=== PATIENT | male | born 1980 | race Caucasian/White ===

== ENCOUNTER 2017-08-24 09:14 | Day surgery (SDC) | payer MEDICARE, OTHER ==
[~2017-08-24 09:14] MED LIST: ACET120S PO; ACET325 PO; ACET650SUP PR; ALBU3IS INH; ALBU90OI INH; ASCO250CH PO; AZIT250 PO; Amitiza24 MCG; Amitiza24 MCG PO; BACL10; BACL10 PO; BACL20; BACL20 PO; BACLOFEN PUMP; BISA10S PO; BISA10S PR; CAL; CEFD300 PO; CEFOXITIN IV; CEFP200; CEFU500 PO; CEPH500 PO; CIPR500 PO; CITA20; CLIN300 PO; CLON.1; CVS DISPOSABLE399 ML PR; CYCL10 PO; Ceftriaxon1 GM/50 M1 IV; Cephalexin250 MG PO; Cipro500 MG PO; Cleocin HCl300 MG PO; Colace250 MG PO; Cranberry 4001 EACH PO; DIAZ10; DIAZ10 PO; DIAZ5 PO; DILAUDID0.5 MG/0.5 IJ; DIPH50 PO; DOC250 PO; DOCCAL240; DOCU100; DOCU100 PO; DOXY100 PO; DULO30 PO; DULO60 PO; Dicyclomine HCl20 MG PO; ENOX40I SC; ENOX40I SUBQ; ERGO50000 PO; ESZO2 PO; ESZOPICLONE2 MG PO; FERR325 PO; FIBE4P; FLORINEF PO; FLUD.1; FLUD.1 PO; FLUDROCORTISONE PO; FLUOROCORTISONE; FURO20 PO; FURO40 PO; Fludrocortison0.1 MG PO; GABA300; GABA600 PO; GABA800 PO; GUAI200 PO; GUAI600T33 PO; HIPREX1 GM PO; HYDACE5; HYDACE5 PO; HYDACE7.5 PO; HYDCOR10 PO; HYDMOR2; HYDMOR2 IV; HYDMOR2 PO; HYDR-86 PO; HYDR1TAB94; HYDROMORPHONE; Hair, Skin & N1 EACH PO; IBUP200 PO; IBUP600 PO; KEFLEX PO; KETO10 PO; Keflex500 MG PO; Kristalose20 GM PO; LACT10SY PO; LAVAP17G PO; LAVAP4L PO; LEVFLO500 PO; MAGCIT300 PO; MARIJUANNA INH; MED MARIJUANA; MEDICAL MARIJUANA; METO10 PO; MULTI VITAMIN1 EACH PO; MUPI2TO TOP; Milk Of Ma400 MG/5 M PO; Miralax17 GM PO; Monodox100 MG PO; NAPR500 PO; NEOPOLBACA TOP; NEURONTIN PO; NITR100 PO; NITR100CA PO; NITR50; NITR50 PO; NUTRISOURCE FIBE4 GM PO; OMEP20ER PO; ONDA4 PO; ONDA8 PO; OPIBELS PR; OXYACE5T PO; OXYACE7.5T PO; OXYB5 PO; Omeprazole20 M1 PO; PARO10; PARO20; PARO20 PO; PHENA200 PO; POLY17UD PO; POTA10T PO; POTCHL10ER PO; PROACE100 PO; PROC10 PO; Percocet 5-3251 EACH PO; Prilosec Otc20 MG; Pyridium200 MG PO; RANI150; RANI150 PO; RIFA300 PO; RXCLIN PO; RXHYDMOR2 PO; RXONDA4ODT MM; RXOXYACE PO; RXPHEN200 PO; RXPROACE PO; SACC250C; SACC250C IV; SACC250C PO; SENN187; SENN187 PO; SENNP PO; SIME80CH PO; SIMV80 PO; SULTRIDS PO; Senna8.6 MG PO; TIZANIDINE HCL4 MG PO; TOLT2 PO; TRAZ100; TRAZ100 PO; TRAZ50; TRAZ50 PO; Therapeutic M1 EAC5 PO; Tizanidine HCl2 MG PO; VANCOMYCIN1.25 GM/21 IV; VANCOMYCIN1.5 GM/150 IV; VITAMIN D22000 UNIT; Vancocin HCL1000 MG IV; Vibramycin100 MG PO; WARF3 PO; XARELTO20 MG PO; baclofen
== END 2017-08-24 22:54 | disposition home or self-care (01) ==
LOC: WOUND 09:14
PROC: 0JBN0ZZ Excision of Right Lower Leg Subcutaneous Tissue and Fascia, Open Approach (ICD-10-PCS; principal; 2017-08-24)
DX: Z48.00 Encounter for change or removal of nonsurgical wound dressing (principal); L89.514 Pressure ulcer of right ankle, stage 4; M86.672 Other chronic osteomyelitis, left ankle and foot; G82.53 Quadriplegia, C5-C7 complete
CPT/HCPCS: 87081; G0463

== ENCOUNTER 2017-09-21 14:53 | Day surgery (SDC) | payer MEDICARE, OTHER | END 2017-09-21 22:50 | disposition home or self-care (01) | LOC: WOUND 14:53 | PROC: 0HBKXZZ Excision of Right Lower Leg Skin, External Approach (ICD-10-PCS; principal; 2017-09-21) | DX: Z48.00 Encounter for change or removal of nonsurgical wound dressing (principal); M86.672 Other chronic osteomyelitis, left ankle and foot; G82.53 Quadriplegia, C5-C7 complete; Z89.421 Acquired absence of other right toe(s) | CPT/HCPCS: 87070; 87205 ==

== ENCOUNTER 2017-09-28 09:17 | Day surgery (SDC) | payer MEDICARE, OTHER | END 2017-09-28 23:19 | disposition home or self-care (01) | LOC: WOUND 09:17 | PROC: 0KBS0ZZ Excision of Right Lower Leg Muscle, Open Approach (ICD-10-PCS; principal; 2017-09-28) | DX: Z48.00 Encounter for change or removal of nonsurgical wound dressing (principal); M86.672 Other chronic osteomyelitis, left ankle and foot; L89.514 Pressure ulcer of right ankle, stage 4; G82.53 Quadriplegia, C5-C7 complete; Z89.421 Acquired absence of other right toe(s) | CPT/HCPCS: G0463 ==

== ENCOUNTER 2017-10-05 08:50 | Day surgery (SDC) | payer MEDICARE, OTHER | END 2017-10-05 11:11 | disposition home or self-care (01) | LOC: WOUND 08:50 | PROC: 0HBKXZZ Excision of Right Lower Leg Skin, External Approach (ICD-10-PCS; principal; 2017-10-05) | PROC: 0QBG0ZZ Excision of Right Tibia, Open Approach (ICD-10-PCS; principal; 2017-10-05) | DX: M86.672 Other chronic osteomyelitis, left ankle and foot (principal); L89.514 Pressure ulcer of right ankle, stage 4; G82.53 Quadriplegia, C5-C7 complete; Z89.421 Acquired absence of other right toe(s) | CPT/HCPCS: G0463 ==

== ENCOUNTER 2017-10-24 10:43 | Day surgery (SDC) | payer MEDICARE, OTHER | END 2017-10-24 23:25 | disposition home or self-care (01) | LOC: WOUND 10:43 | DX: Z48.00 Encounter for change or removal of nonsurgical wound dressing (principal); M86.672 Other chronic osteomyelitis, left ankle and foot; L89.514 Pressure ulcer of right ankle, stage 4; G82.53 Quadriplegia, C5-C7 complete | CPT/HCPCS: G0463 ==

== ENCOUNTER → 2017-11-02 | Outpatient (CLI) | payer MEDICARE, OTHER ==
[~2017-11-02] MED LIST changes: +Fleet Enema132 ML PR; +GABA400 PO; +Invanz1 GM IV; +MEROPENEM-1 GM/50 ML IV; +MIRALAX17 GM PO; +OXYB5ER PO; +Omeprazole20 M1; +Senna-Docusate1 EACH PO; +TYLENOL PO
[2017-11-02 15:25] LABS: Source, Urine Clean Catch
[2017-11-02 17:47] LABS: Appearance, Urine Hazy (Clear); Bilirubin, Urine Neg (Neg); Blood, Urine 5+ (Neg); Color, Urine Red (P-Yellow); Glucose Qualitative, Urine Neg (Neg); Ketones, Urine Neg (Neg); Leukocyte Esterase, Urine 1+ (Neg); Nitrite, Urine Neg (Neg); Protein, Urine 3+ (Neg); Urobilinogen, Urine NORM (Normal)
[2017-11-02 18:16] LABS: Bacteria Many /hpf
[2017-11-02 18:17] LABS: Red Blood Cells, Urine 50-100 /hpf (0-2); Squamous Epithelial Cells Not Seen /hpf (Few)
== END ==
LOC: LAB SRC 11:27
PROVIDERS: Internal Medicine
DX: N39.0 Urinary tract infection, site not specified (principal)
CPT/HCPCS: 81001; 87086

== ENCOUNTER 2017-11-07 10:40 | Emergency (ER) | payer MEDICARE, OTHER ==
[~2017-11-07] VITALS: Ht 185.4 cm; Wt 90.7 kg
[~2017-11-07 10:40] MED LIST changes: -Fleet Enema132 ML PR; -GABA400 PO; -Invanz1 GM IV; -MEROPENEM-1 GM/50 ML IV; -MIRALAX17 GM PO; -OXYB5ER PO; -Omeprazole20 M1; -Senna-Docusate1 EACH PO; -TYLENOL PO
[2017-11-07 11:37] LABS: Source, Urine Catheter
[2017-11-07 11:49] LABS: Bilirubin, Urine Neg (Neg); Blood, Urine 3+ (Neg); Glucose Qualitative, Urine Neg (Neg); Ketones, Urine Neg (Neg); Leukocyte Esterase, Urine 3+ (Neg); Nitrite, Urine Pos (Neg); Protein, Urine 2+ (Neg); Specific Gravity, Urine 1.015 (1.003-1.022); Urobilinogen, Urine NORM (Normal)
[2017-11-07 11:51] LABS: BASOPHILS ABSOLUTE AUTO 0.03 K/mm3 (0.00-0.23); BASOPHILS PERCENT AUTO 1 % (0-2); EOSINOPHILS PERCENT AUTO 6 % (0-6); Hematocrit 44.7 % (37.0-53.0); Hemoglobin 13.8 g/dL (13.5-17.5); IMMATURE GRAN ABSOLUTE AUTO 0.02 K/mm3 (0.00-0.10); IMMATURE GRAN PERCENT AUTO 0 % (0-1); LYMPHOCYTES ABSOLUTE AUTO 2.22 K/mm3 (0.84-5.20); LYMPHOCYTES PERCENT AUTO 36 % (21-46); MONOCYTES ABSOLUTE AUTO 0.43 K/mm3 (0.16-1.47); MONOCYTES PERCENT AUTO 7 % (4-13); Mean Corpuscular HGB 25.9 pg (26.0-34.0); Mean Corpuscular HGB Conc 30.9 g/dL (31.5-36.5); Mean Corpuscular Volume 84 fL (80-100); Mean Platelet Volume 11.5 fL (9.1-12.4); NEUTROPHILS ABSOLUTE AUTO 3.14 K/mm3 (1.96-9.15); NEUTROPHILS PERCENT AUTO 50 % (41-73); Platelet Count 225 K/mm3 (150-400); RDW Coefficient Variation 14.6 % (11.7-14.2); RDW Standard Deviation 44.9 fL (35.1-46.3); Red Blood Cell Count 5.33 M/mm3 (4.30-5.90); White Blood Cell Count 6.24 K/mm3 (4.00-11.30)
[2017-11-07 11:55] LABS: Appearance, Urine Turbid (Clear); Color, Urine Yellow (P-Yellow)
[2017-11-07 11:59] LABS: White Blood Cells, Urine 50-100 /hpf (0-5)
[2017-11-07 12:00] LABS: Squamous Epithelial Cells Rare /hpf (Few)
[2017-11-07 12:01] LABS: Amorphous Mod (0-Heavy); Bacteria Many /hpf
[2017-11-07 12:12] LABS: Alanine Aminotransfer (ALT/SGP 31 U/L (12-78); Albumin, Blood 3.5 g/dL (3.4-5.0); Albumin/Globulin Ratio 0.7 (0.8-1.8); Alk Phos 68 U/L (50-136); Anion Gap 4 mmol/L (6-16); Aspartate Aminotrans (AST/SGOT 17 U/L (12-37); Bilirubin, Total 0.3 mg/dL (0.1-1.0); Blood Urea Nitrogen 15 mg/dL (8-24); Bun/Creatinine Ratio 29.4 (12.0-20.0); CO2, Blood 32 mmol/L (21-32); Calcium, Blood 9.3 mg/dL (8.5-10.1); Chloride, Blood 102 mmol/L (98-108); Creatinine, Blood 0.51 mg/dL (0.60-1.20); Globulin, Blood 4.7 g/dL (2.2-4.0); Glomerular Filtration Rate >60 (60-); Glucose, Blood 92 mg/dL (70-99); Potassium, Blood 4.2 mmol/L (3.5-5.5); Sodium, Blood 138 mmol/L (136-145); Total Protein, Blood 8.2 g/dL (6.4-8.2)
== END 2017-11-07 17:59 | disposition home or self-care (01) ==
LOC: ER 10:40
PROVIDERS: Emergency Medicine
DX: N39.0 Urinary tract infection, site not specified (principal); J45.909 Unspecified asthma, uncomplicated; Z88.0 Allergy status to penicillin; Z88.1 Allergy status to other antibiotic agents; Z88.2 Allergy status to sulfonamides; Z91.040 Latex allergy status; Z88.8 Allergy status to other drugs, medicaments and biological substances; Z79.899 Other long term (current) drug therapy; Z86.718 Personal history of other venous thrombosis and embolism
CPT/HCPCS: 36415; 80053; 81001; 83690; 85025; 87077; 87086; 87186; 99283; J7030

== ENCOUNTER → 2017-11-18 | Outpatient (CLI) | payer MEDICARE, OTHER ==
[~2017-11-18] MED LIST changes: +Fleet Enema132 ML PR; +GABA400 PO; +Invanz1 GM IV; +MEROPENEM-1 GM/50 ML IV; +MIRALAX17 GM PO; +OXYB5ER PO; +Omeprazole20 M1; +Senna-Docusate1 EACH PO; +TYLENOL PO
== END ==
LOC: LAB 17:36
DX: L08.9 Local infection of the skin and subcutaneous tissue, unspecified (principal)
CPT/HCPCS: 87070; 87077; 87186; 87205

== ENCOUNTER 2017-11-21 09:25 | Day surgery (SDC) | payer MEDICARE, OTHER ==
[~2017-11-21 09:25] MED LIST changes: -Fleet Enema132 ML PR; -GABA400 PO; -Invanz1 GM IV; -MEROPENEM-1 GM/50 ML IV; -MIRALAX17 GM PO; -OXYB5ER PO; -Omeprazole20 M1; -Senna-Docusate1 EACH PO; -TYLENOL PO
== END 2017-11-21 11:47 | disposition home or self-care (01) ==
LOC: WOUND
PROC: 0HBKXZZ Excision of Right Lower Leg Skin, External Approach (ICD-10-PCS; principal; 2017-11-21)
PROC: 2W1QX6Z Compression of Right Lower Leg using Pressure Dressing (ICD-10-PCS; principal; 2017-11-21)
PROC: 0HBMXZZ Excision of Right Foot Skin, External Approach (ICD-10-PCS; principal; 2017-11-21)
DX: L89.514 Pressure ulcer of right ankle, stage 4 (principal); M86.672 Other chronic osteomyelitis, left ankle and foot; G82.53 Quadriplegia, C5-C7 complete; L89.899 Pressure ulcer of other site, unspecified stage
CPT/HCPCS: G0463; J0278

== ENCOUNTER 2017-12-05 00:04 | Day surgery (SDC) | payer MEDICARE, OTHER | END 2017-12-05 10:35 | disposition home or self-care (01) | LOC: WOUND 00:04 | PROC: 2W1QX6Z Compression of Right Lower Leg using Pressure Dressing (ICD-10-PCS; principal; 2017-12-05) | DX: L89.514 Pressure ulcer of right ankle, stage 4 (principal); M86.672 Other chronic osteomyelitis, left ankle and foot; G82.53 Quadriplegia, C5-C7 complete; Z89.421 Acquired absence of other right toe(s) | CPT/HCPCS: G0463 ==

== ENCOUNTER 2017-12-09 21:20 | Inpatient (IN) | payer MEDICARE, OTHER ==
[~2017-12-09] VITALS: Ht 185.4 cm; Wt 100.3 kg
[~2017-12-09 21:20] MED LIST changes: -Fleet Enema132 ML PR; -GABA400 PO; -Invanz1 GM IV; -MEROPENEM-1 GM/50 ML IV; -MIRALAX17 GM PO; -OXYB5ER PO; -Omeprazole20 M1; -Senna-Docusate1 EACH PO; -TYLENOL PO
[2017-12-09] MEDS ORDERED: DIAZ10 PO (21:51)
[2017-12-09] MEDS ORDERED: TYLENOL PO (21:51)
[2017-12-09] MEDS ORDERED: BISA10S PR (21:51)
[2017-12-09] MEDS ORDERED: Fludrocortison0.1 MG PO (21:51)
[2017-12-09] MEDS ORDERED: HIPREX1 GM PO (21:52)
[2017-12-09] MEDS ORDERED: Milk Of Ma400 MG/5 M PO (21:52)
[2017-12-09] MEDS ORDERED: GABA400 PO (21:52)
[2017-12-09] MEDS ORDERED: Omeprazole20 M1 (21:53)
[2017-12-09] MEDS ORDERED: MIRALAX17 GM PO (21:53)
[2017-12-09] MEDS ORDERED: Senna-Docusate1 EACH PO (21:54)
[2017-12-09] MEDS ORDERED: OXYB5ER PO (21:54)
[2017-12-09] MEDS ORDERED: XARELTO20 MG PO (21:54)
[2017-12-09 23:06] LABS: Hematocrit 42.7 % (37.0-53.0); Hemoglobin 13.3 g/dL (13.5-17.5); Mean Corpuscular HGB 25.6 pg (26.0-34.0); Mean Corpuscular HGB Conc 31.1 g/dL (31.5-36.5); Mean Corpuscular Volume 82 fL (80-100); Mean Platelet Volume 11.8 fL (9.1-12.4); Platelet Count 167 K/mm3 (150-400); RDW Coefficient Variation 15.4 % (11.7-14.2); RDW Standard Deviation 46.2 fL (35.1-46.3); White Blood Cell Count 13.98 K/mm3 (4.00-11.30)
[2017-12-09 23:22] LABS: Alanine Aminotransfer (ALT/SGP 27 U/L (12-78); Albumin/Globulin Ratio 0.7 (0.8-1.8); Alk Phos 64 U/L (50-136); Anion Gap 3 mmol/L (6-16); Aspartate Aminotrans (AST/SGOT 15 U/L (12-37); Bilirubin, Total 0.4 mg/dL (0.1-1.0); Blood Urea Nitrogen 12 mg/dL (8-24); Bun/Creatinine Ratio 17.7 (12.0-20.0); CO2, Blood 33 mmol/L (21-32); Calcium, Blood 8.7 mg/dL (8.5-10.1); Chloride, Blood 95 mmol/L (98-108); Creatinine, Blood 0.68 mg/dL (0.60-1.20); Globulin, Blood 4.6 g/dL (2.2-4.0); Glomerular Filtration Rate >60 (60-); Glucose, Blood 146 mg/dL (70-99); Potassium, Blood 3.3 mmol/L (3.5-5.5); Sodium, Blood 131 mmol/L (136-145); Total Protein, Blood 7.6 g/dL (6.4-8.2)
[2017-12-09 23:27] LABS: BAND PERCENT MAN 17 % (0-8); BASOPHILS PERCENT MAN 0 % (0-2); EOSINOPHILS PERCENT MAN 0 % (0-6); LYMPHOCYTES ABSOLUTE MAN 0.69 K/mm3 (0.84-5.20); LYMPHOCYTES PERCENT MAN 5 % (21-46); METAMYELOCYTE ABSOLUTE MAN 0.27 K/mm3 (0.00-0.00); METAMYELOCYTE PERCENT MAN 2 % (0-0); MONOCYTES ABSOLUTE MAN 0.13 K/mm3 (0.16-1.47); MONOCYTES PERCENT MAN 1 % (4-13); MYELOCYTE ABSOLUTE MAN 0.13 K/mm3 (0.00-0.00); MYELOCYTE PERCENT MAN 1 % (0-0); NEUTROPHILS ABSOLUTE MAN 12.72 K/mm3 (1.96-9.15); SEG NEUTROPHILS PERCENT MAN 74 % (41-73); TOTAL CELLS COUNTED 100
[2017-12-09 23:29] LABS: Source, Urine Catheter
[2017-12-09 23:33] LABS: Blood, Urine 2+ (Neg); Glucose Qualitative, Urine Neg (Neg); Ketones, Urine 1+ (Neg); Leukocyte Esterase, Urine 2+ (Neg); Nitrite, Urine Pos (Neg); Protein, Urine 3+ (Neg); Specific Gravity, Urine 1.015 (1.003-1.022); Urobilinogen, Urine 2+ (Normal); pH, Urine 6.5 (5.0-8.0)
[2017-12-09 23:34] LABS: Appearance, Urine Cloudy (Clear); Bilirubin, Urine 1+ (Neg); Color, Urine Amber (P-Yellow)
[2017-12-09 23:39] LABS: Bacteria Mod /hpf; Mucus Mod (0-Heavy); Red Blood Cells, Urine 0-2 /hpf (0-2); Squamous Epithelial Cells Rare /hpf (Few); White Blood Cells, Urine TNTC /hpf (0-5)
[2017-12-10 12:38] LABS: Hematocrit 40.5 % (37.0-53.0); Hemoglobin 12.7 g/dL (13.5-17.5); Mean Corpuscular HGB 25.5 pg (26.0-34.0); Mean Corpuscular HGB Conc 31.4 g/dL (31.5-36.5); Mean Corpuscular Volume 81 fL (80-100); Mean Platelet Volume 11.6 fL (9.1-12.4); Platelet Count 156 K/mm3 (150-400); RDW Coefficient Variation 15.8 % (11.7-14.2); RDW Standard Deviation 46.5 fL (35.1-46.3); Red Blood Cell Count 4.98 M/mm3 (4.30-5.90); White Blood Cell Count 11.61 K/mm3 (4.00-11.30)
[2017-12-10 12:57] LABS: BAND PERCENT MAN 16 % (0-8); BASOPHILS PERCENT MAN 0 % (0-2); EOSINOPHILS PERCENT MAN 0 % (0-6); LYMPHOCYTES ABSOLUTE MAN 0.23 K/mm3 (0.84-5.20); LYMPHOCYTES PERCENT MAN 2 % (21-46); MONOCYTES PERCENT MAN 0 % (4-13); NEUTROPHILS ABSOLUTE MAN 11.37 K/mm3 (1.96-9.15); SEG NEUTROPHILS PERCENT MAN 82 % (41-73); TOTAL CELLS COUNTED 100
[2017-12-10 12:58] LABS: Alanine Aminotransfer (ALT/SGP 27 U/L (12-78); Albumin, Blood 2.9 g/dL (3.4-5.0); Albumin/Globulin Ratio 0.6 (0.8-1.8); Alk Phos 72 U/L (50-136); Anion Gap 6 mmol/L (6-16); Aspartate Aminotrans (AST/SGOT 16 U/L (12-37); Bilirubin, Total 0.5 mg/dL (0.1-1.0); Blood Urea Nitrogen 10 mg/dL (8-24); Bun/Creatinine Ratio 17.7 (12.0-20.0); CO2, Blood 29 mmol/L (21-32); Calcium, Blood 8.6 mg/dL (8.5-10.1); Chloride, Blood 97 mmol/L (98-108); Creatinine, Blood 0.57 mg/dL (0.60-1.20); Globulin, Blood 4.6 g/dL (2.2-4.0); Glomerular Filtration Rate >60 (60-); Glucose, Blood 97 mg/dL (70-99); Potassium, Blood 3.7 mmol/L (3.5-5.5); Sodium, Blood 132 mmol/L (136-145); Total Protein, Blood 7.5 g/dL (6.4-8.2)
[2017-12-10] MEDS ORDERED: Fleet Enema132 ML PR (15:13)
[2017-12-11 07:14] LABS: Hematocrit 37.7 % (37.0-53.0); Hemoglobin 11.8 g/dL (13.5-17.5); Mean Corpuscular HGB 25.5 pg (26.0-34.0); Mean Corpuscular HGB Conc 31.3 g/dL (31.5-36.5); Mean Corpuscular Volume 81 fL (80-100); Mean Platelet Volume 11.1 fL (9.1-12.4); Platelet Count 184 K/mm3 (150-400); RDW Coefficient Variation 15.8 % (11.7-14.2); RDW Standard Deviation 47.2 fL (35.1-46.3); Red Blood Cell Count 4.63 M/mm3 (4.30-5.90); White Blood Cell Count 10.32 K/mm3 (4.00-11.30)
[2017-12-11 07:35] LABS: Anion Gap 7 mmol/L (6-16); Blood Urea Nitrogen 8 mg/dL (8-24); CO2, Blood 28 mmol/L (21-32); Calcium, Blood 8.5 mg/dL (8.5-10.1); Chloride, Blood 98 mmol/L (98-108); Creatinine, Blood 0.62 mg/dL (0.60-1.20); Glomerular Filtration Rate >60 (60-); Glucose, Blood 102 mg/dL (70-99); Potassium, Blood 3.8 mmol/L (3.5-5.5); Sodium, Blood 133 mmol/L (136-145)
[2017-12-11 07:44] LABS: BAND PERCENT MAN 11 % (0-8); BASOPHILS PERCENT MAN 0 % (0-2); EOSINOPHILS PERCENT MAN 1 % (0-6); LYMPHOCYTES ABSOLUTE MAN 0.92 K/mm3 (0.84-5.20); LYMPHOCYTES PERCENT MAN 9 % (21-46); MONOCYTES PERCENT MAN 3 % (4-13); NEUTROPHILS ABSOLUTE MAN 8.97 K/mm3 (1.96-9.15); SEG NEUTROPHILS PERCENT MAN 76 % (41-73); TOTAL CELLS COUNTED 100
[2017-12-12 06:31] LABS: BASOPHILS ABSOLUTE AUTO 0.02 K/mm3 (0.00-0.23); BASOPHILS PERCENT AUTO 0 % (0-2); EOSINOPHILS ABSOLUTE AUTO 0.35 K/mm3 (0.00-0.68); EOSINOPHILS PERCENT AUTO 4 % (0-6); Hematocrit 37.7 % (37.0-53.0); Hemoglobin 11.7 g/dL (13.5-17.5); IMMATURE GRAN ABSOLUTE AUTO 0.07 K/mm3 (0.00-0.10); IMMATURE GRAN PERCENT AUTO 1 % (0-1); LYMPHOCYTES ABSOLUTE AUTO 1.42 K/mm3 (0.84-5.20); LYMPHOCYTES PERCENT AUTO 15 % (21-46); MONOCYTES ABSOLUTE AUTO 0.52 K/mm3 (0.16-1.47); MONOCYTES PERCENT AUTO 5 % (4-13); Mean Corpuscular HGB 25.4 pg (26.0-34.0); Mean Corpuscular Volume 82 fL (80-100); Mean Platelet Volume 10.9 fL (9.1-12.4); NEUTROPHILS ABSOLUTE AUTO 7.25 K/mm3 (1.96-9.15); NEUTROPHILS PERCENT AUTO 75 % (41-73); Platelet Count 171 K/mm3 (150-400); RDW Standard Deviation 47.9 fL (35.1-46.3); Red Blood Cell Count 4.61 M/mm3 (4.30-5.90); White Blood Cell Count 9.63 K/mm3 (4.00-11.30)
[2017-12-12 06:48] LABS: Anion Gap 3 mmol/L (6-16); Blood Urea Nitrogen 8 mg/dL (8-24); Bun/Creatinine Ratio 14.5 (12.0-20.0); CO2, Blood 34 mmol/L (21-32); Calcium, Blood 8.6 mg/dL (8.5-10.1); Chloride, Blood 99 mmol/L (98-108); Creatinine, Blood 0.55 mg/dL (0.60-1.20); Glomerular Filtration Rate >60 (60-); Glucose, Blood 102 mg/dL (70-99); Potassium, Blood 3.7 mmol/L (3.5-5.5); Sodium, Blood 136 mmol/L (136-145)
[2017-12-12] MEDS ORDERED: CLIN300 PO (10:20)
[2017-12-12] MEDS ORDERED: SACC250C PO (10:20)
[2017-12-12] MEDS ORDERED: MEROPENEM-1 GM/50 ML IV (10:21)
[2017-12-13] MEDS ORDERED: Invanz1 GM IV (13:14)
== END 2017-12-13 13:59 | disposition home health service (06) | DRG 602 ==
LOC: DELPENDDIS → ER 21:20 → MEDS 12-10 01:18 → ENPENDDIS 12-12 09:32 → MEDS 12-13 13:59
PROVIDERS: Emergency Medicine; Family Medicine; Internal Medicine
DX: L03.115 Cellulitis of right lower limb (principal); G82.54 Quadriplegia, C5-C7 incomplete; L89.513 Pressure ulcer of right ankle, stage 3; E87.1 Hypo-osmolality and hyponatremia; G90.4 Autonomic dysreflexia; T83.511A Infection and inflammatory reaction due to indwelling urethral catheter, initial encounter; D64.9 Anemia, unspecified; S12.490S Other displaced fracture of fifth cervical vertebra, sequela; N39.0 Urinary tract infection, site not specified; F32.9 Major depressive disorder, single episode, unspecified; B96.20 Unspecified Escherichia coli [E. coli] as the cause of diseases classified elsewhere; J45.909 Unspecified asthma, uncomplicated; K59.00 Constipation, unspecified; Z86.718 Personal history of other venous thrombosis and embolism; Z87.891 Personal history of nicotine dependence; Z79.01 Long term (current) use of anticoagulants; Z79.52 Long term (current) use of systemic steroids; Z79.899 Other long term (current) drug therapy; Z88.0 Allergy status to penicillin; Z88.2 Allergy status to sulfonamides; Z88.8 Allergy status to other drugs, medicaments and biological substances; Z88.1 Allergy status to other antibiotic agents; Z91.040 Latex allergy status
CPT/HCPCS: 36415; 72193; 73701; 80048; 80053; 81001; 83605; 83690; 84145; 85025; 87040; 87077; 87086; 87186; 93005; 93010; 94660; 94762; 96365; 96366; 96367; 99285; J1200; J1650; J2185; J2405; J2765; J3370; J3480; J7030; J7050; Q9967

== ENCOUNTER → 2017-12-09 | Outpatient (CLI) | payer MEDICARE, OTHER ==
[~2017-12-09] MED LIST changes: +Fleet Enema132 ML PR; +GABA400 PO; +Invanz1 GM IV; +MEROPENEM-1 GM/50 ML IV; +MIRALAX17 GM PO; +OXYB5ER PO; +Omeprazole20 M1; +Senna-Docusate1 EACH PO; +TYLENOL PO
[2017-12-09 15:10] LABS: Source, Urine Clean Catch
[2017-12-09 15:30] LABS: Appearance, Urine Cloudy (Clear); Bilirubin, Urine Neg (Neg); Blood, Urine 5+ (Neg); Color, Urine Amber (P-Yellow); Glucose Qualitative, Urine 3+ (Neg); Ketones, Urine 1+ (Neg); Leukocyte Esterase, Urine 3+ (Neg); Nitrite, Urine Pos (Neg); Protein, Urine 3+ (Neg); Specific Gravity, Urine 1.015 (1.003-1.022); Urobilinogen, Urine 1+ (Normal)
[2017-12-09 16:02] LABS: Bacteria Many /hpf; Red Blood Cells, Urine TNTC /hpf (0-2); Squamous Epithelial Cells Few /hpf (Few); White Blood Cells, Urine 50-100 /hpf (0-5)
== END ==
LOC: LAB 15:07 → LAB SHORT 15:07
PROVIDERS: Internal Medicine
DX: N39.0 Urinary tract infection, site not specified (principal)
CPT/HCPCS: 81001; 87077; 87086; 87186

== ENCOUNTER 2017-12-28 01:10 | Day surgery (SDC) | payer MEDICARE, OTHER ==
[~2017-12-28 01:10] MED LIST changes: +Fleet Enema132 ML PR; +GABA400 PO; +Invanz1 GM IV; +MEROPENEM-1 GM/50 ML IV; +MIRALAX17 GM PO; +OXYB5ER PO; +Omeprazole20 M1; +Senna-Docusate1 EACH PO; +TYLENOL PO
== END 2017-12-28 22:52 | disposition home or self-care (01) ==
LOC: WOUND 01:10
PROC: 0HBMXZZ Excision of Right Foot Skin, External Approach (ICD-10-PCS; principal; 2017-12-28)
PROC: 0HBKXZZ Excision of Right Lower Leg Skin, External Approach (ICD-10-PCS; principal; 2017-12-28)
PROC: 0HB6XZZ Excision of Back Skin, External Approach (ICD-10-PCS; principal; 2017-12-28)
DX: L89.513 Pressure ulcer of right ankle, stage 3 (principal); M86.672 Other chronic osteomyelitis, left ankle and foot; G82.53 Quadriplegia, C5-C7 complete; L89.892 Pressure ulcer of other site, stage 2; Z89.421 Acquired absence of other right toe(s); L89.319 Pressure ulcer of right buttock, unspecified stage; L89.152 Pressure ulcer of sacral region, stage 2; L89.894 Pressure ulcer of other site, stage 4
CPT/HCPCS: G0463

== ENCOUNTER 2017-12-28 10:43 | Day surgery (SDC) | payer MEDICARE, OTHER | END 2017-12-28 11:05 | disposition home or self-care (01) | LOC: ATC 10:43 | DX: L89.514 Pressure ulcer of right ankle, stage 4 (principal); M86.672 Other chronic osteomyelitis, left ankle and foot; G82.53 Quadriplegia, C5-C7 complete; L89.892 Pressure ulcer of other site, stage 2 | CPT/HCPCS: 99211 ==

== ENCOUNTER → 2018-02-01 | Outpatient (CLI) | payer MEDICARE, OTHER ==
[2018-02-01 16:40] LABS: C-REACTIVE PROTEIN, EXT RANGE 0.879 mg/dL (0.000-0.300)
[2018-02-01 16:46] LABS: Prealbumin, Blood 16.9 mg/dL (20.0-40.0)
== END | disposition home or self-care (01) ==
LOC: LAB SHORT 15:40 → LAB 15:40
PROVIDERS: Internal Medicine
DX: G82.50 Quadriplegia, unspecified (principal); G90.4 Autonomic dysreflexia; L89.153 Pressure ulcer of sacral region, stage 3; L89.890 Pressure ulcer of other site, unstageable; L89.620 Pressure ulcer of left heel, unstageable; L89.220 Pressure ulcer of left hip, unstageable
CPT/HCPCS: 84134; 85651; 86140

== ENCOUNTER → 2018-02-03 | Outpatient (CLI) | payer MEDICARE, OTHER | LOC: LAB 15:09 → LAB SHORT 15:09 | DX: S31.809A Unspecified open wound of unspecified buttock, initial encounter (principal); S81.801D Unspecified open wound, right lower leg, subsequent encounter | CPT/HCPCS: 87070; 87077; 87147; 87186; 87205 ==

== ENCOUNTER 2018-10-22 08:00 | Day surgery (SDC) | payer MEDICARE, OTHER | END 2018-10-22 23:15 | disposition home or self-care (01) | LOC: WOUND 08:00 | DX: L89.894 Pressure ulcer of other site, stage 4 (principal); L89.513 Pressure ulcer of right ankle, stage 3; L89.893 Pressure ulcer of other site, stage 3; L89.890 Pressure ulcer of other site, unstageable; G82.53 Quadriplegia, C5-C7 complete; Z88.0 Allergy status to penicillin | CPT/HCPCS: G0463 ==

== ENCOUNTER 2018-10-31 09:00 | Day surgery (SDC) | payer MEDICARE, OTHER | END 2018-10-31 23:09 | disposition home or self-care (01) | LOC: WOUND 09:00 | PROC: 0HBLXZZ Excision of Left Lower Leg Skin, External Approach (ICD-10-PCS; principal; 2018-10-31) | PROC: 0HBKXZZ Excision of Right Lower Leg Skin, External Approach (ICD-10-PCS; principal; 2018-10-31) | DX: L89.512 Pressure ulcer of right ankle, stage 2 (principal); G82.53 Quadriplegia, C5-C7 complete; L89.893 Pressure ulcer of other site, stage 3; L89.899 Pressure ulcer of other site, unspecified stage | CPT/HCPCS: 87070; 87075; 87077; 87186; 87205 ==

== ENCOUNTER → 2018-11-02 | Outpatient (CLI) | payer MEDICARE, OTHER ==
[2018-11-02 18:30] LABS: Source, Urine Catheter
[2018-11-02 18:45] LABS: Bilirubin, Urine Neg (Neg); Blood, Urine 3+ (Neg); Glucose Qualitative, Urine Neg (Neg); Ketones, Urine Neg (Neg); Leukocyte Esterase, Urine 3+ (Neg); Nitrite, Urine Pos (Neg); Protein, Urine 1+ (Neg); Specific Gravity, Urine 1.015 (1.003-1.022); Urobilinogen, Urine NORM (Normal)
[2018-11-02 18:55] LABS: Appearance, Urine Hazy (Clear); Color, Urine Yellow (P-Yellow)
[2018-11-02 18:56] LABS: Bacteria Many /hpf; Squamous Epithelial Cells Few /hpf (Few); White Blood Cells, Urine TNTC /hpf (0-5)
== END ==
LOC: LAB SHORT 15:40 → LAB 15:40
PROVIDERS: Internal Medicine
DX: N39.0 Urinary tract infection, site not specified (principal)
CPT/HCPCS: 81001; 87077; 87086; 87186

== ENCOUNTER 2018-11-07 00:22 | Day surgery (SDC) | payer MEDICARE, OTHER | END 2018-11-07 22:49 | disposition home or self-care (01) | LOC: WOUND 00:22 | DX: L89.894 Pressure ulcer of other site, stage 4 (principal); L89.513 Pressure ulcer of right ankle, stage 3; L89.893 Pressure ulcer of other site, stage 3; L89.890 Pressure ulcer of other site, unstageable; G82.53 Quadriplegia, C5-C7 complete; Z88.0 Allergy status to penicillin ==

== ENCOUNTER 2018-11-14 00:29 | Day surgery (SDC) | payer MEDICARE, OTHER | END 2018-11-14 22:46 | disposition home or self-care (01) | LOC: WOUND 00:29 | DX: L89.894 Pressure ulcer of other site, stage 4 (principal); L89.513 Pressure ulcer of right ankle, stage 3; L89.893 Pressure ulcer of other site, stage 3; G82.53 Quadriplegia, C5-C7 complete; Z88.0 Allergy status to penicillin ==

== ENCOUNTER 2018-11-22 14:03 | Emergency (ER) | payer MEDICARE, OTHER ==
[~2018-11-22] VITALS: Ht 185.4 cm; Wt 106.6 kg
== END 2018-11-22 16:22 | disposition home or self-care (01) ==
LOC: ER 14:03
DX: Z48.01 Encounter for change or removal of surgical wound dressing (principal); F32.9 Major depressive disorder, single episode, unspecified; Z88.0 Allergy status to penicillin; Z88.1 Allergy status to other antibiotic agents; Z88.2 Allergy status to sulfonamides; Z91.040 Latex allergy status; Z88.8 Allergy status to other drugs, medicaments and biological substances; Z79.899 Other long term (current) drug therapy
CPT/HCPCS: 99283

== ENCOUNTER 2018-12-05 00:26 | Day surgery (SDC) | payer MEDICARE, OTHER | END 2018-12-05 23:03 | disposition home or self-care (01) | LOC: WOUND 00:26 | DX: L89.512 Pressure ulcer of right ankle, stage 2 (principal); L89.893 Pressure ulcer of other site, stage 3; L89.899 Pressure ulcer of other site, unspecified stage; G82.53 Quadriplegia, C5-C7 complete; G47.30 Sleep apnea, unspecified; F32.9 Major depressive disorder, single episode, unspecified ==

== ENCOUNTER 2018-12-19 00:05 | Day surgery (SDC) | payer MEDICARE, OTHER | END 2018-12-19 22:42 | disposition home or self-care (01) | LOC: WOUND 00:05 | DX: L89.514 Pressure ulcer of right ankle, stage 4 (principal); L89.894 Pressure ulcer of other site, stage 4; G82.53 Quadriplegia, C5-C7 complete; J45.909 Unspecified asthma, uncomplicated; G47.30 Sleep apnea, unspecified ==

== ENCOUNTER 2018-12-26 00:55 | Day surgery (SDC) | payer MEDICARE, OTHER | END 2018-12-26 23:18 | disposition home or self-care (01) | LOC: WOUND 00:55 | DX: L89.514 Pressure ulcer of right ankle, stage 4 (principal); L89.894 Pressure ulcer of other site, stage 4; L89.893 Pressure ulcer of other site, stage 3; G82.53 Quadriplegia, C5-C7 complete; J45.909 Unspecified asthma, uncomplicated; G47.30 Sleep apnea, unspecified | CPT/HCPCS: G0463 ==

== ENCOUNTER 2019-01-09 09:10 | Day surgery (SDC) | payer MEDICARE, OTHER | END 2019-01-09 22:46 | disposition home or self-care (01) | LOC: WOUND 09:10 | DX: L89.514 Pressure ulcer of right ankle, stage 4 (principal); L89.894 Pressure ulcer of other site, stage 4; G82.53 Quadriplegia, C5-C7 complete; G47.30 Sleep apnea, unspecified; J45.909 Unspecified asthma, uncomplicated ==

== ENCOUNTER 2019-01-16 09:15 | Day surgery (SDC) | payer MEDICARE, OTHER | END 2019-01-16 23:02 | disposition home or self-care (01) | LOC: WOUND 09:15 | DX: L89.514 Pressure ulcer of right ankle, stage 4 (principal); L89.894 Pressure ulcer of other site, stage 4; J45.909 Unspecified asthma, uncomplicated; G47.30 Sleep apnea, unspecified; G82.53 Quadriplegia, C5-C7 complete ==

== ENCOUNTER 2019-01-23 09:15 | Day surgery (SDC) | payer MEDICARE, OTHER | END 2019-01-23 22:45 | disposition home or self-care (01) | LOC: WOUND 09:15 | DX: L89.514 Pressure ulcer of right ankle, stage 4 (principal); L89.894 Pressure ulcer of other site, stage 4; G82.53 Quadriplegia, C5-C7 complete; G47.30 Sleep apnea, unspecified; J45.909 Unspecified asthma, uncomplicated ==

== ENCOUNTER 2019-02-06 00:14 | Day surgery (SDC) | payer MEDICARE, OTHER | END 2019-02-06 22:50 | disposition home or self-care (01) | LOC: WOUND 00:14 | DX: L89.514 Pressure ulcer of right ankle, stage 4 (principal); L89.894 Pressure ulcer of other site, stage 4; J45.909 Unspecified asthma, uncomplicated; G82.53 Quadriplegia, C5-C7 complete; G47.30 Sleep apnea, unspecified ==

== ENCOUNTER 2019-02-13 09:17 | Day surgery (SDC) | payer MEDICARE, OTHER | END 2019-02-13 23:06 | disposition home or self-care (01) | LOC: WOUND 09:17 | DX: L89.894 Pressure ulcer of other site, stage 4 (principal); L89.893 Pressure ulcer of other site, stage 3; L89.512 Pressure ulcer of right ankle, stage 2; G82.53 Quadriplegia, C5-C7 complete; J45.909 Unspecified asthma, uncomplicated; G47.30 Sleep apnea, unspecified; F32.9 Major depressive disorder, single episode, unspecified ==

== ENCOUNTER 2019-02-20 00:16 | Day surgery (SDC) | payer MEDICARE, OTHER | END 2019-02-20 23:04 | disposition home or self-care (01) | LOC: WOUND 00:16 | DX: L89.514 Pressure ulcer of right ankle, stage 4 (principal); L89.894 Pressure ulcer of other site, stage 4; G82.53 Quadriplegia, C5-C7 complete; I87.2 Venous insufficiency (chronic) (peripheral); G47.30 Sleep apnea, unspecified | CPT/HCPCS: G0463 ==

== ENCOUNTER 2019-03-06 09:10 | Day surgery (SDC) | payer MEDICARE, OTHER | END 2019-03-06 23:12 | disposition home or self-care (01) | LOC: WOUND 09:10 | DX: L89.514 Pressure ulcer of right ankle, stage 4 (principal); L89.894 Pressure ulcer of other site, stage 4; G82.53 Quadriplegia, C5-C7 complete; J45.909 Unspecified asthma, uncomplicated; I87.2 Venous insufficiency (chronic) (peripheral); G47.30 Sleep apnea, unspecified; Z79.899 Other long term (current) drug therapy | CPT/HCPCS: 87071; 87075; 87205 ==

== ENCOUNTER → 2019-03-07 | Outpatient (CLI) | payer MEDICARE, OTHER ==
[2019-03-07 13:53] LABS: Source, Urine Catheter
[2019-03-07 18:37] LABS: Bilirubin, Urine Neg (Neg); Blood, Urine 5+ (Neg); Glucose Qualitative, Urine Neg (Neg); Ketones, Urine 1+ (Neg); Leukocyte Esterase, Urine 2+ (Neg); Nitrite, Urine Pos (Neg); Protein, Urine 2+ (Neg); Specific Gravity, Urine 1.015 (1.003-1.022); Urobilinogen, Urine 1+ (Normal); pH, Urine 6.5 (5.0-8.0)
[2019-03-07 19:23] LABS: Appearance, Urine Cloudy (Clear); Color, Urine Yellow (P-Yellow)
[2019-03-07 19:24] LABS: Squamous Epithelial Cells Few /hpf (Few)
[2019-03-07 19:25] LABS: Bacteria Mod /hpf; Red Blood Cells, Urine 50-100 /hpf (0-2); White Blood Cells, Urine 25-50 /hpf (0-5)
== END ==
LOC: LAB SRC 10:45 → LAB SHORT 10:45
PROVIDERS: Internal Medicine
DX: N39.0 Urinary tract infection, site not specified (principal)
CPT/HCPCS: 81001; 87077; 87086; 87186

== ENCOUNTER 2019-03-13 09:18 | Day surgery (SDC) | payer MEDICARE, OTHER | END 2019-03-13 22:55 | disposition home or self-care (01) | LOC: WOUND 09:18 | DX: L89.154 Pressure ulcer of sacral region, stage 4 (principal); L89.514 Pressure ulcer of right ankle, stage 4; L89.614 Pressure ulcer of right heel, stage 4; L89.894 Pressure ulcer of other site, stage 4; L89.623 Pressure ulcer of left heel, stage 3; I87.2 Venous insufficiency (chronic) (peripheral); G82.53 Quadriplegia, C5-C7 complete; F32.9 Major depressive disorder, single episode, unspecified; J45.909 Unspecified asthma, uncomplicated; G47.30 Sleep apnea, unspecified | CPT/HCPCS: G0463 ==

== ENCOUNTER 2019-03-13 11:23 | Emergency (ER) | payer MEDICARE, OTHER ==
[~2019-03-13] VITALS: Ht 185.4 cm; Wt 106.1 kg
[2019-03-13 12:02] LABS: BASOPHILS ABSOLUTE AUTO 0.02 K/mm3 (0.00-0.23); BASOPHILS PERCENT AUTO 0 % (0-2); EOSINOPHILS ABSOLUTE AUTO 0.17 K/mm3 (0.00-0.68); EOSINOPHILS PERCENT AUTO 2 % (0-6); Hematocrit 44.6 % (37.0-53.0); Hemoglobin 13.5 g/dL (13.5-17.5); IMMATURE GRAN ABSOLUTE AUTO 0.03 K/mm3 (0.00-0.10); IMMATURE GRAN PERCENT AUTO 0 % (0-1); LYMPHOCYTES ABSOLUTE AUTO 1.03 K/mm3 (0.84-5.20); LYMPHOCYTES PERCENT AUTO 12 % (21-46); MONOCYTES ABSOLUTE AUTO 0.45 K/mm3 (0.16-1.47); MONOCYTES PERCENT AUTO 5 % (4-13); Mean Corpuscular HGB 24.4 pg (26.0-34.0); Mean Corpuscular HGB Conc 30.3 g/dL (31.5-36.5); Mean Corpuscular Volume 81 fL (80-100); Mean Platelet Volume 11.2 fL (9.1-12.4); NEUTROPHILS ABSOLUTE AUTO 7.07 K/mm3 (1.96-9.15); NEUTROPHILS PERCENT AUTO 81 % (41-73); Platelet Count 286 K/mm3 (150-400); RDW Coefficient Variation 15.9 % (11.7-14.2); RDW Standard Deviation 46.5 fL (35.1-46.3); Red Blood Cell Count 5.53 M/mm3 (4.30-5.90); White Blood Cell Count 8.77 K/mm3 (4.00-11.30)
[2019-03-13 12:19] LABS: Alanine Aminotransfer (ALT/SGP 19 U/L (12-78); Albumin, Blood 3.8 g/dL (3.4-5.0); Albumin/Globulin Ratio 0.8 (0.8-1.8); Alk Phos 99 U/L (50-136); Anion Gap 3 mmol/L (6-16); Aspartate Aminotrans (AST/SGOT 14 U/L (12-37); Bilirubin, Total 0.6 mg/dL (0.1-1.0); Blood Urea Nitrogen 11 mg/dL (8-24); Bun/Creatinine Ratio 17.9 (12.0-20.0); CO2, Blood 34 mmol/L (21-32); Calcium, Blood 9.3 mg/dL (8.5-10.1); Chloride, Blood 101 mmol/L (98-108); Creatinine, Blood 0.61 mg/dL (0.60-1.20); Globulin, Blood 4.8 g/dL (2.2-4.0); Glomerular Filtration Rate >60 (60-); Glucose, Blood 116 mg/dL (70-99); Potassium, Blood 3.5 mmol/L (3.5-5.5); Sodium, Blood 138 mmol/L (136-145); Total Protein, Blood 8.6 g/dL (6.4-8.2)
== END 2019-03-13 16:00 | disposition home or self-care (01) ==
LOC: ER 11:23
PROVIDERS: Physician Assistant
DX: N39.0 Urinary tract infection, site not specified (principal); F32.9 Major depressive disorder, single episode, unspecified; Z88.0 Allergy status to penicillin; Z88.2 Allergy status to sulfonamides; Z91.040 Latex allergy status; Z88.1 Allergy status to other antibiotic agents; Z79.899 Other long term (current) drug therapy
CPT/HCPCS: 36415; 80053; 85025; 96365; 99282-25; J1335

== ENCOUNTER 2019-03-14 00:10 | Day surgery (SDC) | payer MEDICARE, OTHER | END 2019-03-14 11:33 | disposition home or self-care (01) | LOC: ATC 00:10 | DX: N39.0 Urinary tract infection, site not specified (principal); B96.20 Unspecified Escherichia coli [E. coli] as the cause of diseases classified elsewhere; Z16.12 Extended spectrum beta lactamase (ESBL) resistance; F32.9 Major depressive disorder, single episode, unspecified; Z88.0 Allergy status to penicillin; Z88.1 Allergy status to other antibiotic agents; Z88.2 Allergy status to sulfonamides; Z91.040 Latex allergy status; Z88.8 Allergy status to other drugs, medicaments and biological substances; Z79.899 Other long term (current) drug therapy | CPT/HCPCS: 96365; J1335 ==

== ENCOUNTER 2019-03-15 13:58 | Day surgery (SDC) | payer MEDICARE, OTHER ==
--- NOTE | 2019-03-15 15:56 | NUR ---
LOOKED FOR ACCESS IN RU ARM FOR POWER-GLIDE WITH NO RESULTS NOTED.
== END 2019-03-15 15:41 | disposition home or self-care (01) ==
LOC: ATC 13:58
DX: N39.0 Urinary tract infection, site not specified (principal); F32.9 Major depressive disorder, single episode, unspecified; Z88.0 Allergy status to penicillin; Z88.1 Allergy status to other antibiotic agents; Z88.2 Allergy status to sulfonamides; Z91.040 Latex allergy status; Z88.8 Allergy status to other drugs, medicaments and biological substances; Z79.899 Other long term (current) drug therapy
CPT/HCPCS: 96365; J1335

== ENCOUNTER 2019-03-16 13:48 | Day surgery (SDC) | payer MEDICARE, OTHER ==
--- NOTE | 2019-03-16 15:14 | NUR ---
PT REQUESTING ASSISTANCE WITH TRANSPORTATION TO AND FROM APPOINTMENTS DUE TO LACK OF FUNDING. ALSO REQUESTING A POWERGLIDE. SPOKE WITH NURSING FOOD AND BEVERAGE ASSOCIATE, SHAWN, WHO WORKED [facility] PT TO ARRANGE TRANSPORTATION. REHANA MCKEON PLACED POWERGLIDE DURING PT'S VISIT TODAY.
== END 2019-03-16 15:14 | disposition home or self-care (01) ==
LOC: ATC 13:48
DX: N39.0 Urinary tract infection, site not specified (principal); B96.20 Unspecified Escherichia coli [E. coli] as the cause of diseases classified elsewhere; F32.9 Major depressive disorder, single episode, unspecified; Z16.12 Extended spectrum beta lactamase (ESBL) resistance; Z88.0 Allergy status to penicillin; Z88.2 Allergy status to sulfonamides; Z88.1 Allergy status to other antibiotic agents; Z88.8 Allergy status to other drugs, medicaments and biological substances; Z91.040 Latex allergy status; Z79.899 Other long term (current) drug therapy; Z98.1 Arthrodesis status; Z98.890 Other specified postprocedural states
CPT/HCPCS: 96365; J1335

== ENCOUNTER 2019-03-17 14:09 | Day surgery (SDC) | payer MEDICARE, OTHER | END 2019-03-17 15:04 | disposition home or self-care (01) | LOC: ATC 14:09 | DX: N39.0 Urinary tract infection, site not specified (principal); B96.20 Unspecified Escherichia coli [E. coli] as the cause of diseases classified elsewhere; F32.9 Major depressive disorder, single episode, unspecified; Z16.12 Extended spectrum beta lactamase (ESBL) resistance; Z88.0 Allergy status to penicillin; Z88.1 Allergy status to other antibiotic agents; Z88.2 Allergy status to sulfonamides; Z88.8 Allergy status to other drugs, medicaments and biological substances; Z91.040 Latex allergy status; Z79.899 Other long term (current) drug therapy | CPT/HCPCS: 96365; J1335 ==

== ENCOUNTER 2019-03-18 07:47 | Day surgery (SDC) | payer MEDICARE, OTHER | END 2019-03-18 14:55 | disposition home or self-care (01) | LOC: ATC 07:47 | DX: N39.0 Urinary tract infection, site not specified (principal); B96.20 Unspecified Escherichia coli [E. coli] as the cause of diseases classified elsewhere; F32.9 Major depressive disorder, single episode, unspecified; Z16.12 Extended spectrum beta lactamase (ESBL) resistance; Z88.0 Allergy status to penicillin; Z88.2 Allergy status to sulfonamides; Z91.040 Latex allergy status; Z88.1 Allergy status to other antibiotic agents; Z88.8 Allergy status to other drugs, medicaments and biological substances; Z79.899 Other long term (current) drug therapy | CPT/HCPCS: 96365; J1335 ==

== ENCOUNTER 2019-03-19 02:59 | Day surgery (SDC) | payer MEDICARE, OTHER | END 2019-03-19 14:54 | disposition home or self-care (01) | LOC: ATC 02:59 | DX: N39.0 Urinary tract infection, site not specified (principal); B96.20 Unspecified Escherichia coli [E. coli] as the cause of diseases classified elsewhere; Z16.12 Extended spectrum beta lactamase (ESBL) resistance; F32.9 Major depressive disorder, single episode, unspecified; Z88.0 Allergy status to penicillin; Z88.2 Allergy status to sulfonamides; Z91.040 Latex allergy status; Z88.8 Allergy status to other drugs, medicaments and biological substances; Z79.899 Other long term (current) drug therapy | CPT/HCPCS: 96365; J1335 ==

== ENCOUNTER 2019-03-20 00:10 | Day surgery (SDC) | payer MEDICARE, OTHER ==
[2019-03-21] MEDS ORDERED: Invanz1 GM IV (14:20)
== END 2019-03-20 12:11 | disposition home or self-care (01) ==
LOC: ATC 00:10
DX: N39.0 Urinary tract infection, site not specified (principal); B96.20 Unspecified Escherichia coli [E. coli] as the cause of diseases classified elsewhere; F32.9 Major depressive disorder, single episode, unspecified; Z88.0 Allergy status to penicillin; Z88.2 Allergy status to sulfonamides; Z91.040 Latex allergy status; Z88.8 Allergy status to other drugs, medicaments and biological substances; Z16.12 Extended spectrum beta lactamase (ESBL) resistance; Z79.899 Other long term (current) drug therapy
CPT/HCPCS: 96365; J1335

== ENCOUNTER 2019-03-20 09:03 | Day surgery (SDC) | payer MEDICARE, OTHER ==
[2019-03-21] MEDS ORDERED: Invanz1 GM IV (14:20)
== END 2019-03-20 23:11 | disposition home or self-care (01) ==
LOC: WOUND 09:03
DX: L89.894 Pressure ulcer of other site, stage 4 (principal); L89.154 Pressure ulcer of sacral region, stage 4; L89.512 Pressure ulcer of right ankle, stage 2; G82.53 Quadriplegia, C5-C7 complete; J45.909 Unspecified asthma, uncomplicated; I87.2 Venous insufficiency (chronic) (peripheral); F32.9 Major depressive disorder, single episode, unspecified; G47.30 Sleep apnea, unspecified

== ENCOUNTER 2019-03-21 00:27 | Day surgery (SDC) | payer MEDICARE, OTHER ==
[2019-03-21] MEDS ORDERED: Invanz1 GM IV (14:20)
== END 2019-03-21 14:45 | disposition home or self-care (01) ==
LOC: ATC 00:27
DX: N39.0 Urinary tract infection, site not specified (principal); B96.20 Unspecified Escherichia coli [E. coli] as the cause of diseases classified elsewhere; F32.9 Major depressive disorder, single episode, unspecified; Z16.12 Extended spectrum beta lactamase (ESBL) resistance; Z88.0 Allergy status to penicillin; Z88.2 Allergy status to sulfonamides; Z91.040 Latex allergy status; Z79.899 Other long term (current) drug therapy
CPT/HCPCS: 96365; J1335

== ENCOUNTER 2019-03-22 00:23 | Day surgery (SDC) | payer MEDICARE, OTHER | END 2019-03-22 12:00 | disposition home or self-care (01) | LOC: ATC 00:23 | DX: N39.0 Urinary tract infection, site not specified (principal); B96.20 Unspecified Escherichia coli [E. coli] as the cause of diseases classified elsewhere; F32.9 Major depressive disorder, single episode, unspecified; Z16.12 Extended spectrum beta lactamase (ESBL) resistance; Z88.0 Allergy status to penicillin; Z88.1 Allergy status to other antibiotic agents; Z88.2 Allergy status to sulfonamides; Z91.040 Latex allergy status; Z88.8 Allergy status to other drugs, medicaments and biological substances; Z79.899 Other long term (current) drug therapy | CPT/HCPCS: 96365; J1335 ==

== ENCOUNTER 2019-03-23 10:44 | Day surgery (SDC) | payer MEDICARE, OTHER | END 2019-03-23 11:41 | disposition home or self-care (01) | LOC: ATC 10:44 | DX: N39.0 Urinary tract infection, site not specified (principal); B96.20 Unspecified Escherichia coli [E. coli] as the cause of diseases classified elsewhere; F32.9 Major depressive disorder, single episode, unspecified; Z16.12 Extended spectrum beta lactamase (ESBL) resistance; Z91.040 Latex allergy status; Z88.0 Allergy status to penicillin; Z88.1 Allergy status to other antibiotic agents; Z88.2 Allergy status to sulfonamides; Z88.8 Allergy status to other drugs, medicaments and biological substances; Z79.899 Other long term (current) drug therapy | CPT/HCPCS: 96365; J1335 ==

== ENCOUNTER 2019-03-24 11:09 | Day surgery (SDC) | payer MEDICARE, OTHER | END 2019-03-24 22:48 | disposition home or self-care (01) | LOC: ATC 11:09 | DX: N39.0 Urinary tract infection, site not specified (principal); B96.20 Unspecified Escherichia coli [E. coli] as the cause of diseases classified elsewhere; Z16.12 Extended spectrum beta lactamase (ESBL) resistance; F32.9 Major depressive disorder, single episode, unspecified; Z88.0 Allergy status to penicillin; Z88.1 Allergy status to other antibiotic agents; Z88.2 Allergy status to sulfonamides; Z91.040 Latex allergy status; Z88.8 Allergy status to other drugs, medicaments and biological substances; Z79.899 Other long term (current) drug therapy | CPT/HCPCS: 96365; J1335 ==

== ENCOUNTER 2019-03-25 00:17 | Day surgery (SDC) | payer MEDICARE, OTHER | END 2019-03-25 11:22 | disposition home or self-care (01) | LOC: ATC 00:17 | DX: N39.0 Urinary tract infection, site not specified (principal); B96.20 Unspecified Escherichia coli [E. coli] as the cause of diseases classified elsewhere; Z16.12 Extended spectrum beta lactamase (ESBL) resistance; F32.9 Major depressive disorder, single episode, unspecified; Z88.0 Allergy status to penicillin; Z88.1 Allergy status to other antibiotic agents; Z88.2 Allergy status to sulfonamides; Z91.040 Latex allergy status; Z88.8 Allergy status to other drugs, medicaments and biological substances; Z79.899 Other long term (current) drug therapy | CPT/HCPCS: 96365; J1335 ==

== ENCOUNTER 2019-03-26 00:13 | Day surgery (SDC) | payer MEDICARE, OTHER | END 2019-03-26 11:35 | disposition home or self-care (01) | LOC: ATC 00:13 | DX: N39.0 Urinary tract infection, site not specified (principal); B96.20 Unspecified Escherichia coli [E. coli] as the cause of diseases classified elsewhere; Z16.12 Extended spectrum beta lactamase (ESBL) resistance; F32.9 Major depressive disorder, single episode, unspecified; Z88.0 Allergy status to penicillin; Z88.1 Allergy status to other antibiotic agents; Z88.2 Allergy status to sulfonamides; Z91.040 Latex allergy status; Z88.8 Allergy status to other drugs, medicaments and biological substances; Z79.899 Other long term (current) drug therapy | CPT/HCPCS: 96365; J1335 ==

== ENCOUNTER 2019-03-27 09:20 | Day surgery (SDC) | payer MEDICARE, OTHER | END 2019-03-27 23:43 | disposition home or self-care (01) | LOC: WOUND 09:20 | DX: L89.512 Pressure ulcer of right ankle, stage 2 (principal); J45.909 Unspecified asthma, uncomplicated; G47.33 Obstructive sleep apnea (adult) (pediatric); I87.2 Venous insufficiency (chronic) (peripheral); G82.53 Quadriplegia, C5-C7 complete | CPT/HCPCS: G0463 ==

== ENCOUNTER 2019-04-03 09:15 | Day surgery (SDC) | payer MEDICARE, OTHER | END 2019-04-03 23:02 | disposition home or self-care (01) | LOC: WOUND 09:15 | PROC: 0JB70ZZ Excision of Back Subcutaneous Tissue and Fascia, Open Approach (ICD-10-PCS; principal; 2019-04-03) | DX: L89.154 Pressure ulcer of sacral region, stage 4 (principal); L89.894 Pressure ulcer of other site, stage 4; L89.514 Pressure ulcer of right ankle, stage 4; L89.624 Pressure ulcer of left heel, stage 4; L89.613 Pressure ulcer of right heel, stage 3; G82.53 Quadriplegia, C5-C7 complete; J98.4 Other disorders of lung; N31.9 Neuromuscular dysfunction of bladder, unspecified; G47.30 Sleep apnea, unspecified; Q66.0 Congenital talipes equinovarus; F32.9 Major depressive disorder, single episode, unspecified ==

== ENCOUNTER 2019-04-10 00:27 | Day surgery (SDC) | payer MEDICARE, OTHER | END 2019-04-10 22:55 | disposition home or self-care (01) | LOC: WOUND 00:27 | DX: L89.154 Pressure ulcer of sacral region, stage 4 (principal); L89.514 Pressure ulcer of right ankle, stage 4; L89.894 Pressure ulcer of other site, stage 4; F32.9 Major depressive disorder, single episode, unspecified; J45.909 Unspecified asthma, uncomplicated; G47.30 Sleep apnea, unspecified; G82.53 Quadriplegia, C5-C7 complete; I87.2 Venous insufficiency (chronic) (peripheral) ==

== ENCOUNTER 2019-04-24 00:21 | Day surgery (SDC) | payer MEDICARE, OTHER | END 2019-04-24 22:41 | disposition home or self-care (01) | LOC: WOUND 00:21 | DX: L89.893 Pressure ulcer of other site, stage 3 (principal); L89.512 Pressure ulcer of right ankle, stage 2; G82.53 Quadriplegia, C5-C7 complete; I87.2 Venous insufficiency (chronic) (peripheral); F32.9 Major depressive disorder, single episode, unspecified | CPT/HCPCS: G0463 ==

== ENCOUNTER 2019-05-01 00:28 | Day surgery (SDC) | payer MEDICARE, OTHER | END 2019-05-01 22:49 | disposition home or self-care (01) | LOC: WOUND 00:28 | DX: L89.154 Pressure ulcer of sacral region, stage 4 (principal); L89.512 Pressure ulcer of right ankle, stage 2; L89.893 Pressure ulcer of other site, stage 3; G82.53 Quadriplegia, C5-C7 complete; F32.9 Major depressive disorder, single episode, unspecified; I87.2 Venous insufficiency (chronic) (peripheral) | CPT/HCPCS: 87071; 87075; 87077; 87186; 87205 ==

== ENCOUNTER 2019-05-08 00:19 | Day surgery (SDC) | payer MEDICARE, OTHER | END 2019-05-08 23:23 | disposition home or self-care (01) | LOC: WOUND 00:19 | DX: L89.512 Pressure ulcer of right ankle, stage 2 (principal); L89.893 Pressure ulcer of other site, stage 3; G47.30 Sleep apnea, unspecified; G82.53 Quadriplegia, C5-C7 complete; I87.2 Venous insufficiency (chronic) (peripheral) ==

== ENCOUNTER 2019-05-17 13:33 | Day surgery (SDC) | payer MEDICARE, OTHER | END 2019-05-17 23:19 | disposition home or self-care (01) | LOC: WOUND 13:33 | DX: L89.512 Pressure ulcer of right ankle, stage 2 (principal); L89.159 Pressure ulcer of sacral region, unspecified stage; L89.893 Pressure ulcer of other site, stage 3; L89.899 Pressure ulcer of other site, unspecified stage; G82.53 Quadriplegia, C5-C7 complete; I87.2 Venous insufficiency (chronic) (peripheral) ==

== ENCOUNTER 2019-05-22 00:12 | Day surgery (SDC) | payer MEDICARE, OTHER | END 2019-05-22 22:47 | disposition home or self-care (01) | LOC: WOUND 00:12 | DX: L89.154 Pressure ulcer of sacral region, stage 4 (principal); L89.894 Pressure ulcer of other site, stage 4; L89.512 Pressure ulcer of right ankle, stage 2; G82.53 Quadriplegia, C5-C7 complete; I87.2 Venous insufficiency (chronic) (peripheral) ==

== ENCOUNTER 2019-05-29 00:27 | Day surgery (SDC) | payer MEDICARE, OTHER | END 2019-05-29 22:47 | disposition home or self-care (01) | LOC: WOUND 00:27 | DX: L89.514 Pressure ulcer of right ankle, stage 4 (principal); L89.894 Pressure ulcer of other site, stage 4; L89.893 Pressure ulcer of other site, stage 3; I87.2 Venous insufficiency (chronic) (peripheral); G82.53 Quadriplegia, C5-C7 complete | CPT/HCPCS: G0463 ==

== ENCOUNTER → 2019-11-05 | Outpatient (CLI) | payer OTHER ==
[2019-11-05 14:18] LABS: Source, Urine Clean Catch
[2019-11-05 18:36] LABS: Bilirubin, Urine Neg (Neg); Blood, Urine 3+ (Neg); Glucose Qualitative, Urine Neg (Neg); Ketones, Urine Neg (Neg); Leukocyte Esterase, Urine 1+ (Neg); Nitrite, Urine Neg (Neg); Protein, Urine 3+ (Neg); Specific Gravity, Urine 1.015 (1.003-1.022); Urobilinogen, Urine NORM (Normal); pH, Urine 6.5 (5.0-8.0)
[2019-11-05 19:07] LABS: Appearance, Urine Cloudy (Clear); Color, Urine Yellow (P-Yellow)
[2019-11-05 19:13] LABS: Amorphous Heavy (0-Heavy); Bacteria Mod /hpf; Squamous Epithelial Cells Many /hpf (Few)
== END ==
LOC: LAB SHORT 14:17 → LAB SRC 14:17
PROVIDERS: Physician Assistant
DX: N39.0 Urinary tract infection, site not specified (principal)
CPT/HCPCS: 81001; 87077; 87086; 87186

== ENCOUNTER 2020-07-04 14:04 | Emergency (ER) | payer OTHER ==
[~2020-07-04] VITALS: Ht 185.4 cm; Wt 95.2 kg
[2020-07-04] MEDS ORDERED: CEFP200 PO (14:17)
[2020-07-04] MEDS ORDERED: COMBIVENT RESPIM4 G1 INH (14:18)
[2020-07-04] MEDS ORDERED: MONDOXYNE NL100 MG PO (14:19)
[2020-07-04] MEDS ORDERED: PANTOPRAZOLE SO40 M2 PO (14:20)
[2020-07-04] MEDS ORDERED: Cetirizine HCl10 MG PO (14:25)
[2020-07-04] MEDS ORDERED: SENNA LAXATIVE8.6 MG PO (14:26)
[2020-07-04] MEDS ORDERED: SUCR1 PO (14:27)
[2020-07-04] MEDS ORDERED: MYRBETRIQ50 MG PO (14:30)
[2020-07-04 14:51] LABS: BASOPHILS ABSOLUTE AUTO 0.03 K/mm3 (0.00-0.23); BASOPHILS PERCENT AUTO 0 % (0-2); EOSINOPHILS ABSOLUTE AUTO 0.31 K/mm3 (0.00-0.68); EOSINOPHILS PERCENT AUTO 4 % (0-6); Hemoglobin 16.4 g/dL (13.5-17.5); IMMATURE GRAN ABSOLUTE AUTO 0.02 K/mm3 (0.00-0.10); IMMATURE GRAN PERCENT AUTO 0 % (0-1); LYMPHOCYTES ABSOLUTE AUTO 1.82 K/mm3 (0.84-5.20); LYMPHOCYTES PERCENT AUTO 22 % (21-46); MONOCYTES ABSOLUTE AUTO 0.55 K/mm3 (0.16-1.47); MONOCYTES PERCENT AUTO 7 % (4-13); Mean Corpuscular HGB 28.1 pg (26.0-34.0); Mean Corpuscular HGB Conc 31.5 g/dL (31.5-36.5); Mean Corpuscular Volume 89 fL (80-100); Mean Platelet Volume 11.3 fL (9.1-12.4); NEUTROPHILS ABSOLUTE AUTO 5.49 K/mm3 (1.96-9.15); NEUTROPHILS PERCENT AUTO 67 % (41-73); Platelet Count 146 K/mm3 (150-400); RDW Coefficient Variation 17.2 % (11.7-14.2); RDW Standard Deviation 56.4 fL (35.1-46.3); Red Blood Cell Count 5.84 M/mm3 (4.30-5.90); White Blood Cell Count 8.22 K/mm3 (4.00-11.30)
[2020-07-04 15:08] LABS: Alanine Aminotransfer (ALT/SGP 46 U/L (12-78); Albumin, Blood 3.8 g/dL (3.4-5.0); Alk Phos 54 U/L (50-136); Anion Gap 4 mmol/L (6-16); Aspartate Aminotrans (AST/SGOT 19 U/L (12-37); Bilirubin, Total 0.3 mg/dL (0.1-1.0); Blood Urea Nitrogen 21 mg/dL (8-24); Bun/Creatinine Ratio 40.7 (12.0-20.0); CO2, Blood 33 mmol/L (21-32); Calcium, Blood 9.5 mg/dL (8.5-10.1); Chloride, Blood 102 mmol/L (98-108); Creatinine, Blood 0.52 mg/dL (0.60-1.20); Glomerular Filtration Rate >60 (60-); Glucose, Blood 113 mg/dL (70-99); Potassium, Blood 4.2 mmol/L (3.5-5.5); Sodium, Blood 139 mmol/L (136-145); Total Protein, Blood 7.8 g/dL (6.4-8.2)
[2020-07-04] MEDS ORDERED: Flagyl500 MG PO (18:11)
== END 2020-07-04 20:39 | disposition home or self-care (01) ==
LOC: ER 14:04
PROVIDERS: Emergency Medicine
DX: K51.30 Ulcerative (chronic) rectosigmoiditis without complications (principal); K59.00 Constipation, unspecified; G82.50 Quadriplegia, unspecified; Z88.0 Allergy status to penicillin; Z88.2 Allergy status to sulfonamides; Z88.1 Allergy status to other antibiotic agents; Z88.8 Allergy status to other drugs, medicaments and biological substances; Z79.01 Long term (current) use of anticoagulants; Z91.040 Latex allergy status; Z79.899 Other long term (current) drug therapy
CPT/HCPCS: 36415; 74177; 80053; 85025; 99285-25; Q9967

== ENCOUNTER → 2020-08-12 | Outpatient (CLI) | payer OTHER ==
[~2020-08-12] MED LIST changes: +CEFP200 PO; +COMBIVENT RESPIM4 G1 INH; +Cetirizine HCl10 MG PO; +Flagyl500 MG PO; +MONDOXYNE NL100 MG PO; +MYRBETRIQ50 MG PO; +PANTOPRAZOLE SO40 M2 PO; +SENNA LAXATIVE8.6 MG PO; +SUCR1 PO
== END | disposition home or self-care (01) ==
LOC: LAB SHORT 14:48 → LAB 14:48
DX: N39.0 Urinary tract infection, site not specified (principal)
CPT/HCPCS: 87070; 87077; 87147; 87186; 87205

== ENCOUNTER 2020-08-19 09:45 | Day surgery (SDC) | payer OTHER ==
--- NOTE | 2020-08-19 11:07 | NUR ---
History, Chart, Medications and Allergies reviewed before start of procedure. Lungs clear T/O to Auscultation. Patient confirms NPO status and agrees with scheduled surgery. Pre-Op teaching done. Pt verbalizes understanding. Patient states colon prep results clear.
--- NOTE | 2020-08-19 11:26 | NUR ---
08/19/20 1126 Monalisa Olivares History, Chart, Medications and Allergies reviewed before start of procedure. PATIENT CONFIRMS NPO STATUS AND AGREES WITH SCHEDULED PROCEDURE. MONITOR INTACT WITH CONTINUOUS PULSE OXIMETRY AND INTERMITTENT BP. O2 VIA N/C INTACT THROUGHOUT SEDATION/PROCEDURE. 3-LEAD EKG REVIEWED WITH PHYSICIAN PRIOR TO START OF PROCEDURE. DR. BENTLEY LYONS MAC.
--- NOTE | 2020-08-19 13:27 | NUR ---
Discharge instructions reviewed with patient. Patient verbalizes understanding. Copy given to patient to take home. History, Chart, Medications and Allergies reviewed before start of procedure.Patient States Post-Procedure ride home has been arranged. Discharged via wheelchair to private car for ride home.
== END 2020-08-19 13:29 | disposition home or self-care (01) ==
LOC: ORSCMMR 09:45 → ORD 09:45 → ORSCMMR 09:46 → ORD 11:00
PROVIDERS: Internal Medicine Gastroenterology
PROC: 0DBE8ZX Excision of Large Intestine, Via Natural or Artificial Opening Endoscopic, Diagnostic (ICD-10-PCS; principal; 2020-08-19 11:00)
PROC: 0DB48ZX Excision of Esophagogastric Junction, Via Natural or Artificial Opening Endoscopic, Diagnostic (ICD-10-PCS; principal; 2020-08-19 11:00)
PROC: 0DB98ZX Excision of Duodenum, Via Natural or Artificial Opening Endoscopic, Diagnostic (ICD-10-PCS; principal; 2020-08-19 11:00)
PROC: 0DBK8ZX Excision of Ascending Colon, Via Natural or Artificial Opening Endoscopic, Diagnostic (ICD-10-PCS; principal; 2020-08-19 11:00)
PROC: 0DB68ZX Excision of Stomach, Via Natural or Artificial Opening Endoscopic, Diagnostic (ICD-10-PCS; principal; 2020-08-19 11:00)
PROC: 0DBN8ZX Excision of Sigmoid Colon, Via Natural or Artificial Opening Endoscopic, Diagnostic (ICD-10-PCS; principal; 2020-08-19 11:00)
DX: D46.4 Refractory anemia, unspecified (principal); K62.5 Hemorrhage of anus and rectum; K29.70 Gastritis, unspecified, without bleeding; K21.9 Gastro-esophageal reflux disease without esophagitis; K63.89 Other specified diseases of intestine; D12.2 Benign neoplasm of ascending colon; K52.9 Noninfective gastroenteritis and colitis, unspecified; J44.9 Chronic obstructive pulmonary disease, unspecified; Z79.899 Other long term (current) drug therapy; Z79.01 Long term (current) use of anticoagulants
CPT/HCPCS: 88305; 88342; J2704; J7120

== ENCOUNTER 2020-09-28 15:00 | Emergency (ER) | payer OTHER ==
[~2020-09-28] VITALS: Ht 185.4 cm; Wt 113.4 kg
== END 2020-09-28 16:49 | disposition left against medical advice (07) ==
LOC: ER 15:00
DX: Z04.89 Encounter for examination and observation for other specified reasons (principal); Z53.21 Procedure and treatment not carried out due to patient leaving prior to being seen by health care provider; Z79.899 Other long term (current) drug therapy; Z79.01 Long term (current) use of anticoagulants
CPT/HCPCS: 99282

== ENCOUNTER 2020-09-30 13:25 | Emergency (ER) | payer OTHER ==
[~2020-09-30] VITALS: Ht 185.4 cm; Wt 108.0 kg
== END 2020-09-30 14:41 | disposition home or self-care (01) ==
LOC: ER 13:25
DX: Z00.00 Encounter for general adult medical examination without abnormal findings (principal); Z79.01 Long term (current) use of anticoagulants; Z79.899 Other long term (current) drug therapy; Z88.0 Allergy status to penicillin; Z88.1 Allergy status to other antibiotic agents; Z88.2 Allergy status to sulfonamides; Z91.040 Latex allergy status; Z88.8 Allergy status to other drugs, medicaments and biological substances
CPT/HCPCS: 99282

== ENCOUNTER → 2021-03-01 | Outpatient (CLI) | payer OTHER ==
[2021-03-01 13:42] LABS: Source, Urine Catheter
[2021-03-01 15:10] LABS: Appearance, Urine Cloudy (Clear); Bilirubin, Urine Neg (Neg); Blood, Urine 5+ (Neg); Color, Urine Yellow (P-Yellow); Glucose Qualitative, Urine Neg (Neg); Ketones, Urine Neg (Neg); Leukocyte Esterase, Urine 3+ (Neg); Nitrite, Urine Neg (Neg); Protein, Urine 3+ (Neg); Specific Gravity, Urine 1.015 (1.003-1.022); Urobilinogen, Urine NORM (Normal); pH, Urine 6.5 (5.0-8.0)
[2021-03-01 15:24] LABS: Bacteria Many /hpf; Red Blood Cells, Urine TNTC /hpf (0-2); Squamous Epithelial Cells Few /hpf (Few); Transitional Epithelial Cells Few /hpf (0-Rare); White Blood Cells, Urine TNTC /hpf (0-5)
== END | disposition home or self-care (01) ==
LOC: LAB 13:37 → LAB SHORT 13:37
PROVIDERS: Family Medicine
DX: N39.0 Urinary tract infection, site not specified (principal); N32.89 Other specified disorders of bladder
CPT/HCPCS: 81001; 87077; 87086; 87186

== ENCOUNTER → 2021-03-08 | Outpatient (CLI) | payer OTHER ==
[2021-03-08 19:08] LABS: Alanine Aminotransfer (ALT/SGP 50 U/L (12-78); Albumin, Blood 4.1 g/dL (3.4-5.0); Alk Phos 64 U/L (50-136); Anion Gap 4 mmol/L (6-16); Aspartate Aminotrans (AST/SGOT 19 U/L (12-37); Bilirubin, Total 0.4 mg/dL (0.1-1.0); Blood Urea Nitrogen 17 mg/dL (8-24); Bun/Creatinine Ratio 21.9 (12.0-20.0); CHOL/HDL RATIO 3.7; CO2, Blood 32 mmol/L (21-32); Calcium, Blood 9.3 mg/dL (8.5-10.1); Chloride, Blood 102 mmol/L (98-108); Cholesterol 161 mg/dL (50-200); Creatinine, Blood 0.78 mg/dL (0.60-1.20); Globulin, Blood 4.1 g/dL (2.2-4.0); Glomerular Filtration Rate >60 (60-); Glucose, Blood 99 mg/dL (70-99); HDL Cholesterol 43 mg/dL (>39); Iron Serum 38 ug/dL (65-175); LDL/HDL RATIO 1.9; Low Density Lipoprotein Chol 81 mg/dL (0-110); Magnesium, Blood 2.3 mg/dL (1.6-2.4); Percent Saturation 10.5 % (20.0-50.0); Potassium, Blood 3.5 mmol/L (3.5-5.5); Sodium, Blood 138 mmol/L (136-145); Total Iron Binding Capacity 362 ug/dL (250-450); Total Protein, Blood 8.2 g/dL (6.4-8.2); Triglycerides 187 mg/dL (30-160); Very Low Density Lipoprot Chol 37 mg/dL (6-32)
[2021-03-08 19:12] LABS: Thyroid Stimulating Hormone 0.708 uIU/mL (0.360-4.800)
[2021-03-08 19:16] LABS: BASOPHILS ABSOLUTE AUTO 0.04 K/mm3 (0.00-0.23); BASOPHILS PERCENT AUTO 1 % (0-2); EOSINOPHILS ABSOLUTE AUTO 0.37 K/mm3 (0.00-0.68); EOSINOPHILS PERCENT AUTO 6 % (0-6); Hematocrit 47.7 % (37.0-53.0); Hemoglobin 14.2 g/dL (13.5-17.5); IMMATURE GRAN ABSOLUTE AUTO 0.03 K/mm3 (0.00-0.10); IMMATURE GRAN PERCENT AUTO 1 % (0-1); LYMPHOCYTES ABSOLUTE AUTO 1.98 K/mm3 (0.84-5.20); LYMPHOCYTES PERCENT AUTO 30 % (21-46); MONOCYTES ABSOLUTE AUTO 0.51 K/mm3 (0.16-1.47); MONOCYTES PERCENT AUTO 8 % (4-13); Mean Corpuscular HGB 24.8 pg (26.0-34.0); Mean Corpuscular HGB Conc 29.8 g/dL (31.5-36.5); Mean Corpuscular Volume 83 fL (80-100); Mean Platelet Volume 12.2 fL (9.1-12.4); NEUTROPHILS ABSOLUTE AUTO 3.65 K/mm3 (1.96-9.15); NEUTROPHILS PERCENT AUTO 55 % (41-73); Platelet Count 233 K/mm3 (150-400); RDW Coefficient Variation 15.5 % (11.7-14.2); RDW Standard Deviation 46.8 fL (35.1-46.3); Red Blood Cell Count 5.73 M/mm3 (4.30-5.90); White Blood Cell Count 6.58 K/mm3 (4.00-11.30)
== END | disposition home or self-care (01) ==
LOC: LAB SHORT 17:02
PROVIDERS: Family Medicine
DX: Z43.5 Encounter for attention to cystostomy (principal); N31.9 Neuromuscular dysfunction of bladder, unspecified; G82.50 Quadriplegia, unspecified; D50.9 Iron deficiency anemia, unspecified; K90.89 Other intestinal malabsorption; R19.8 Other specified symptoms and signs involving the digestive system and abdomen; R89.9 Unspecified abnormal finding in specimens from other organs, systems and tissues; Z87.01 Personal history of pneumonia (recurrent)
CPT/HCPCS: 80053; 80061; 82306; 83540; 83550; 83735; 84443; 85025

== ENCOUNTER → 2021-06-28 | Outpatient (CLI) | payer OTHER ==
[2021-06-29 11:06] LABS: Source, Urine Catheter
[2021-06-29 12:02] LABS: Appearance, Urine Hazy (Clear); Bilirubin, Urine Neg (Neg); Blood, Urine 3+ (Neg); Color, Urine Yellow (P-Yellow); Glucose Qualitative, Urine Neg (Neg); Ketones, Urine Neg (Neg); Leukocyte Esterase, Urine 3+ (Neg); Nitrite, Urine Pos (Neg); Protein, Urine 1+ (Neg); Urobilinogen, Urine NORM (Normal)
[2021-06-29 12:29] LABS: White Blood Cells, Urine TNTC /hpf (0-5)
[2021-06-29 12:30] LABS: Amorphous Heavy (0-Heavy); Bacteria Many /hpf; Squamous Epithelial Cells Many /hpf (Few)
== END | disposition home or self-care (01) ==
LOC: LAB SHORT 18:15
PROVIDERS: Family Medicine
DX: N39.0 Urinary tract infection, site not specified (principal); N32.89 Other specified disorders of bladder
CPT/HCPCS: 81001; 87077; 87086; 87147; 87186

== ENCOUNTER → 2021-07-29 | Outpatient (CLI) | payer OTHER ==
[2021-07-29 16:17] LABS: Source, Urine Catheter
[2021-07-29 16:47] LABS: Appearance, Urine Cloudy (Clear); Bilirubin, Urine Neg (Neg); Blood, Urine 4+ (Neg); Color, Urine Yellow (P-Yellow); Glucose Qualitative, Urine Neg (Neg); Ketones, Urine Neg (Neg); Leukocyte Esterase, Urine 3+ (Neg); Nitrite, Urine Neg (Neg); Protein, Urine 3+ (Neg); Specific Gravity, Urine 1.015 (1.003-1.022); Urobilinogen, Urine NORM (Normal)
[2021-07-29 17:46] LABS: Squamous Epithelial Cells Mod /hpf (Few)
[2021-07-29 17:48] LABS: Bacteria Mod /hpf
== END | disposition home or self-care (01) ==
LOC: LAB SHORT 16:15 → LAB 16:15
PROVIDERS: Physician Assistant
DX: N39.0 Urinary tract infection, site not specified (principal)
CPT/HCPCS: 81001; 87077; 87086; 87186

== ENCOUNTER → 2021-08-27 | Outpatient (CLI) | payer OTHER | END | disposition home or self-care (01) | LOC: LAB SHORT 18:29 | DX: N39.0 Urinary tract infection, site not specified (principal) | CPT/HCPCS: 87086 ==

== ENCOUNTER 2021-09-20 21:21 | Inpatient (IN) | payer OTHER ==
[~2021-09-20] VITALS: Ht 185.4 cm; Wt 112.9 kg
[~2021-09-20 21:21] MED LIST changes: +Macrobid 100 M100 MG PO; +Protonix40 MG PO
[2021-09-20 22:19] LABS: BASOPHILS ABSOLUTE AUTO 0.03 K/mm3 (0.00-0.23); BASOPHILS PERCENT AUTO 0 % (0-2); EOSINOPHILS PERCENT AUTO 0 % (0-6); Hematocrit 54.7 % (37.0-53.0); Hemoglobin 17.3 g/dL (13.5-17.5); IMMATURE GRAN PERCENT AUTO 1 % (0-1); LYMPHOCYTES ABSOLUTE AUTO 1.06 K/mm3 (0.84-5.20); LYMPHOCYTES PERCENT AUTO 9 % (21-46); MONOCYTES ABSOLUTE AUTO 0.64 K/mm3 (0.16-1.47); MONOCYTES PERCENT AUTO 6 % (4-13); Mean Corpuscular HGB 28.4 pg (26.0-34.0); Mean Corpuscular HGB Conc 31.6 g/dL (31.5-36.5); Mean Corpuscular Volume 90 fL (80-100); Mean Platelet Volume 11.7 fL (9.1-12.4); NEUTROPHILS ABSOLUTE AUTO 9.55 K/mm3 (1.96-9.15); NEUTROPHILS PERCENT AUTO 84 % (41-73); NRBC ABSOLUTE 0.05 K/mm3 (0.00-0.02); NRBC Auto 0.4 /100 WBC (0.0-0.2); Platelet Count 156 K/mm3 (150-400); RDW Coefficient Variation 14.8 % (11.7-14.2); White Blood Cell Count 11.38 K/mm3 (4.00-11.30)
[2021-09-20 22:39] LABS: Alanine Aminotransfer (ALT/SGP 70 U/L (12-78); Albumin, Blood 3.8 g/dL (3.4-5.0); Albumin/Globulin Ratio 0.9 (0.8-1.8); Alk Phos 53 U/L (50-136); Anion Gap 4 mmol/L (6-16); Aspartate Aminotrans (AST/SGOT 32 U/L (12-37); Bilirubin, Total 0.4 mg/dL (0.1-1.0); Blood Urea Nitrogen 17 mg/dL (8-24); Bun/Creatinine Ratio 24.3 (12.0-20.0); CO2, Blood 37 mmol/L (21-32); Calcium, Blood 10.1 mg/dL (8.5-10.1); Chloride, Blood 92 mmol/L (98-108); Globulin, Blood 4.1 g/dL (2.2-4.0); Glomerular Filtration Rate >60 (60-); Glucose, Blood 150 mg/dL (70-99); Potassium, Blood 4.7 mmol/L (3.5-5.5); Sodium, Blood 133 mmol/L (136-145); Total Protein, Blood 7.9 g/dL (6.4-8.2); Troponin I 0.055 ng/mL (0.000-0.040)
[2021-09-20 23:37] LABS: Influenza A, PCR NEGATIVE (NEGATIVE); Influenza B, PCR NEGATIVE (NEGATIVE); Resp Syncytial Virus, PCR NEGATIVE (NEGATIVE); SARS-Cov-2 (COVID-19) PCR, MMC NEGATIVE (NEGATIVE)
[2021-09-21 02:43] LABS: International Normalized Ratio 1.19; Prothrombin Time Results 12.4 Sec (9.7-11.5)
[2021-09-21 02:47] LABS: Anti-Xa UFH, PHA Monitoring 1.07 IU/mL
[2021-09-21 06:00] LABS: BASOPHILS ABSOLUTE AUTO 0.02 K/mm3 (0.00-0.23); BASOPHILS PERCENT AUTO 0 % (0-2); EOSINOPHILS ABSOLUTE AUTO 0.01 K/mm3 (0.00-0.68); EOSINOPHILS PERCENT AUTO 0 % (0-6); IMMATURE GRAN ABSOLUTE AUTO 0.04 K/mm3 (0.00-0.10); IMMATURE GRAN PERCENT AUTO 1 % (0-1); LYMPHOCYTES ABSOLUTE AUTO 1.48 K/mm3 (0.84-5.20); LYMPHOCYTES PERCENT AUTO 18 % (21-46); MONOCYTES ABSOLUTE AUTO 0.62 K/mm3 (0.16-1.47); MONOCYTES PERCENT AUTO 7 % (4-13); Mean Corpuscular HGB 28.4 pg (26.0-34.0); Mean Corpuscular HGB Conc 31.4 g/dL (31.5-36.5); Mean Corpuscular Volume 91 fL (80-100); Mean Platelet Volume 11.6 fL (9.1-12.4); NEUTROPHILS ABSOLUTE AUTO 6.18 K/mm3 (1.96-9.15); NEUTROPHILS PERCENT AUTO 74 % (41-73); NRBC ABSOLUTE 0.04 K/mm3 (0.00-0.02); NRBC Auto 0.5 /100 WBC (0.0-0.2); Platelet Count 159 K/mm3 (150-400); RDW Standard Deviation 49.6 fL (35.1-46.3); Red Blood Cell Count 5.63 M/mm3 (4.30-5.90); White Blood Cell Count 8.35 K/mm3 (4.00-11.30)
[2021-09-21 06:46] LABS: Alanine Aminotransfer (ALT/SGP 58 U/L (12-78); Albumin, Blood 3.2 g/dL (3.4-5.0); Albumin/Globulin Ratio 0.8 (0.8-1.8); Alk Phos 47 U/L (50-136); Anion Gap 2 mmol/L (6-16); Aspartate Aminotrans (AST/SGOT 20 U/L (12-37); Bilirubin, Total 0.2 mg/dL (0.1-1.0); Blood Urea Nitrogen 15 mg/dL (8-24); Bun/Creatinine Ratio 24.7 (12.0-20.0); CO2, Blood 35 mmol/L (21-32); Calcium, Blood 8.9 mg/dL (8.5-10.1); Chloride, Blood 101 mmol/L (98-108); Creatinine, Blood 0.61 mg/dL (0.60-1.20); Globulin, Blood 3.9 g/dL (2.2-4.0); Glomerular Filtration Rate >60 (60-); Glucose, Blood 110 mg/dL (70-99); Potassium, Blood 4.4 mmol/L (3.5-5.5); Sodium, Blood 138 mmol/L (136-145); Total Protein, Blood 7.1 g/dL (6.4-8.2)
--- NOTE | 2021-09-21 18:16 | NUR ---
Pt has been alert, oriented, asking frequently for snacks, drinks, and various help with things.
--- NOTE | 2021-09-21 18:27 | NUR ---
Weaning the pt down on his oxygen delivery. O2 was turned off, but pt's spo2 was 85-88%. He was not in distress. Oxygen replaced at 2 l/min, and spo2 maintaining at 92% or greater at this time. Encouraged pt to continue use of incentive spirometer, which is within his reach.
--- NOTE | 2021-09-22 00:34 | NUR ---
UPDATE PATIENT DESATING INTO 70s ON 6L NC. RT CALLED AND PATIENT PLACED ON HUMIDIFED MASK AT 100%. NO CHANGE IN PATIENTS O2 SATURATION AFTER 10 MINUTES OF RECOVERY TIME. RT PLACED CALL TO HOSPITIALIST WITH ORDERS FOR CPAP. RT AT BEDSIDE SETTING CPAP NOW.
--- NOTE | 2021-09-22 01:42 | NUR ---
UPDATE CPAP IN PLACE AND PATIENT'S O2 SATURATION IS ABOVE 90%. PATIENT DENIES DIFFICULTY BREATHING DURING RECOVERY PERIOD. PATIENT IS HAVING PERIODS OF APNEA WITH TIMES OF 2-4 RESPIRATIONS/MINUTE. RT AND MORTUARY OPERATIONS MANAGER AWARE. SEE RT NOTES FOR UPDATED CPAP SETTINGS.
[2021-09-22 03:34] LABS: BASOPHILS ABSOLUTE AUTO 0.02 K/mm3 (0.00-0.23); BASOPHILS PERCENT AUTO 0 % (0-2); EOSINOPHILS ABSOLUTE AUTO 0.11 K/mm3 (0.00-0.68); EOSINOPHILS PERCENT AUTO 1 % (0-6); Hematocrit 50.4 % (37.0-53.0); Hemoglobin 15.4 g/dL (13.5-17.5); IMMATURE GRAN ABSOLUTE AUTO 0.04 K/mm3 (0.00-0.10); IMMATURE GRAN PERCENT AUTO 1 % (0-1); LYMPHOCYTES ABSOLUTE AUTO 2.38 K/mm3 (0.84-5.20); LYMPHOCYTES PERCENT AUTO 30 % (21-46); MONOCYTES ABSOLUTE AUTO 0.74 K/mm3 (0.16-1.47); MONOCYTES PERCENT AUTO 9 % (4-13); Mean Corpuscular HGB Conc 30.6 g/dL (31.5-36.5); Mean Corpuscular Volume 92 fL (80-100); Mean Platelet Volume 11.5 fL (9.1-12.4); NEUTROPHILS ABSOLUTE AUTO 4.59 K/mm3 (1.96-9.15); NEUTROPHILS PERCENT AUTO 58 % (41-73); Platelet Count 141 K/mm3 (150-400); RDW Coefficient Variation 15.4 % (11.7-14.2); RDW Standard Deviation 51.8 fL (35.1-46.3); White Blood Cell Count 7.88 K/mm3 (4.00-11.30)
[2021-09-22 03:57] LABS: Anion Gap 4 mmol/L (6-16); Blood Urea Nitrogen 18 mg/dL (8-24); Bun/Creatinine Ratio 26.6 (12.0-20.0); CO2, Blood 38 mmol/L (21-32); Calcium, Blood 8.9 mg/dL (8.5-10.1); Chloride, Blood 96 mmol/L (98-108); Creatinine, Blood 0.68 mg/dL (0.60-1.20); Glomerular Filtration Rate >60 (60-); Glucose, Blood 104 mg/dL (70-99); Potassium, Blood 4.1 mmol/L (3.5-5.5); Sodium, Blood 138 mmol/L (136-145)
--- NOTE | 2021-09-22 06:14 | NUR ---
SHIFT SUMMARY PATIENT ALERT AND ORIENTED. SOFT BPs. PATIENT CURRENTLY ON 5L NC WHILE AWAKE WITH O2 SATURATION ABOVE 90%. CPAP AT BEDSIDE. SEE PREVIOUS NOTES. DENIES CHEST PAIN OR SOB. PATIENT REPOSITIONED Q3 DURING NIGHT PER HIS REQUEST. ABLE TO COMMUNICATE WITH STAFF ABOUT NEEDS. COLOSTOMY BAG INTACT. SUPRAPUBIC CATH IN PLACE DRAINING YELLOW URINE TO GRAVITY. BED BATH COMPLETE THIS SHIFT. NO OTHER SIGNIFICANT CHANGES. WILL REPORT TO DAY SHIFT RN.
--- NOTE | 2021-09-22 09:21 | NUR ---
Weaned to 2 l/min oxygen n.c. delivery
--- NOTE | 2021-09-22 10:10 | NUR ---
Repositioned at 0900 to left side-lying position. Pt said he was done with breakfast, declined oral care at that time. Assisted with warm washcloth for wiping his face. Pt also demonstrated good use of the incentive spirometer, max [phone] 10 times in a row. At 1000 he was assisted with teeth brushing, had a visit from the dietian regarding high protein supplements, and then CPAP put in place 2 l oxygen on the patient at his request as he wanted to take a nap. He received a phone call on his cell phone from "EZIO" but asked that the person call him back since he was going to take a nap.
--- NOTE | 2021-09-22 11:13 | NUR ---
REQUESTED OFF OF CPAP TO MAKE PHONE CALL.
--- NOTE | 2021-09-22 11:56 | NUR ---
Dr. Giles is here and talking with pt and also the pt's sister Edwige via speaker phone.
--- NOTE | 2021-09-22 12:34 | NUR ---
Pt is eating lunch in bed. Refused to be sat fully upright, states it is too uncomfortable on his back. He manages to eat with modified cutlery. States all his items are within reach.
--- NOTE | 2021-09-22 13:13 | NUR ---
noted hypoxia 80% and dropping quickly; checked on pt and he was apparently sleeping. Awakened and placed on the CPAP with 4 l/min bleed in.
--- NOTE | 2021-09-22 13:35 | NUR ---
Pt. was on a full mask CPAP but was alert. Pt. had request a spiritual care visit. Pt. was unsettled by the lack of improvement of his physical condition. Facilitated a life review and identified some trauma in the recent loss of his father (spring 2020). Established rapport and explored issues of drew and belief. Pt. has a strong drew but is frustrated with his health. Listened empathetically and prayed with pt. Pt. displayed gratitude, and welcomed a return visit. I will monitor.
--- NOTE | 2021-09-22 18:28 | NUR ---
Several times today the pt has fallen asleep, had hypoxia, and has been awakened when RN came into the room to place the CPAP for the patient. He denies having fallen asleep, declines the CPAP. Veronika RN came into room, saw that pt was apparently sleeping, pt startled awake but declined the CPAP.
--- NOTE | 2021-09-23 10:32 | NUR ---
Dr. Giles is here with the patient at this time. RT Abelardo is here also to evaluate the pt for oxygen at home. Pt's sister Edwige is also on the phone speaker to participate in conversation.
--- NOTE | 2021-09-23 12:36 | NUR ---
Pt was given complete bed bath. Ostomy appliance was changed as well. IV right antecubital space was removed. Pt was dressed in clothes to go home. Pt belongings collected and made ready for discharge home with [facility] ambulance transport later. Samuel from [facility] here to drop off the pt's oxygen tank, states he has a subway train driver who will deliver other equipment to the pt's home. Samuel stated that the pt has had oxygen prescribed for him at least twice in the past, once when he was still living at [facility] and another time when he was at his current residence in [place]. Pt stated that he was "taking a break from the CPAP' and didn't realize that it would cause him to have problems, but stated that "the real reason I got sick was because I got the vaccine."
--- NOTE | 2021-09-23 13:42 | NUR ---
1320 Reviewed the discharge instructions with the patient, verbally and in written form. Reminded him of prescription for antibiotic which was faxed to [facility], his pharmacy of choice. Also reviewed hospital follow up appointment with Dr. Levine's office scheduled for September 29 at 2:15 pm, an in person visit. Explained that if he would like a video appointment he would have to call to change that with Dr. Levine's office, which he said he would do. Emphasized several times the importance of wearing the oxygen as prescribed at all times, and importance of compliance also eventually with any prescription for CPAP/BIPAP. The pt verbalized understanding of this. All of the above information was provided to the pt in printed form and sent home with him in a blue folder located in his belongings bag. [employer] transport picked up the patient at 1330 and transported him with all of his belongings in his posession.
== END 2021-09-23 13:30 | disposition home or self-care (01) | DRG 189 ==
LOC: ER 21:21 → PCU 09-21 02:19 → ERHOLD 09-21 02:19 → PCU 09-21 11:04
PROVIDERS: Emergency Medicine; Family Medicine; Internal Medicine; Student in an Organized Health Care Education/Training Program; ADMIT Internal Medicine
DX: J96.01 Acute respiratory failure with hypoxia (principal); G82.54 Quadriplegia, C5-C7 incomplete; I21.A1 Myocardial infarction type 2; J98.11 Atelectasis; T83.510A Infection and inflammatory reaction due to cystostomy catheter, initial encounter; G93.1 Anoxic brain damage, not elsewhere classified; G47.33 Obstructive sleep apnea (adult) (pediatric); Z20.822 Contact with and (suspected) exposure to COVID-19; F32.A Depression, unspecified; B96.20 Unspecified Escherichia coli [E. coli] as the cause of diseases classified elsewhere; K21.9 Gastro-esophageal reflux disease without esophagitis; Z88.0 Allergy status to penicillin; Z88.1 Allergy status to other antibiotic agents; Z88.2 Allergy status to sulfonamides; Z88.8 Allergy status to other drugs, medicaments and biological substances; Z91.040 Latex allergy status; Z79.01 Long term (current) use of anticoagulants; Z79.899 Other long term (current) drug therapy; Z98.1 Arthrodesis status; Z98.890 Other specified postprocedural states; Z89.421 Acquired absence of other right toe(s); Z86.718 Personal history of other venous thrombosis and embolism; Y84.6 Urinary catheterization as the cause of abnormal reaction of the patient, or of later complication, without mention of misadventure at the time of the procedure
CPT/HCPCS: 0241U; 71045; 71260; 80048; 80053; 83880; 84145; 84484; 85025; 85520; 85610; 85730; 93005; 93010; 94660; 94761; 94762; 96374; 96375; 99285-25; A9270; J0456; J0696; J7030; J7050; Q9967

== ENCOUNTER → 2021-12-02 | Outpatient (CLI) | payer OTHER ==
[2021-12-02 15:13] LABS: Source, Urine Clean Catch
[2021-12-02 18:20] LABS: Appearance, Urine Clear (Clear); Bilirubin, Urine Neg (Neg); Blood, Urine 2+ (Neg); Color, Urine Yellow (P-Yellow); Glucose Qualitative, Urine Neg (Neg); Ketones, Urine Neg (Neg); Leukocyte Esterase, Urine 2+ (Neg); Nitrite, Urine Neg (Neg); Protein, Urine 2+ (Neg); Urobilinogen, Urine NORM (Normal); pH, Urine 6.5 (5.0-8.0)
[2021-12-02 18:38] LABS: Bacteria Mod /hpf; Squamous Epithelial Cells Rare /hpf (Few); Transitional Epithelial Cells Few /hpf (0-Rare); White Blood Cells, Urine TNTC /hpf (0-5)
== END | disposition home or self-care (01) ==
LOC: LAB SHORT 15:11 → LAB 15:11
PROVIDERS: Family Medicine
DX: N39.0 Urinary tract infection, site not specified (principal)
CPT/HCPCS: 81001; 87077; 87086; 87186

== ENCOUNTER → 2022-01-14 | Outpatient (CLI) | payer OTHER ==
[2022-01-14 19:33] LABS: Appearance, Urine Hazy (Clear); Bilirubin, Urine Neg (Neg); Blood, Urine 2+ (Neg); Color, Urine Yellow (P-Yellow); Glucose Qualitative, Urine Neg (Neg); Ketones, Urine Neg (Neg); Leukocyte Esterase, Urine 3+ (Neg); Nitrite, Urine Neg (Neg); Protein, Urine 2+ (Neg); Urobilinogen, Urine NORM (Normal); pH, Urine 6.5 (5.0-8.0)
[2022-01-14 19:49] LABS: Bacteria Many /hpf; Squamous Epithelial Cells Mod /hpf (Few); White Blood Cells, Urine TNTC /hpf (0-5)
[2022-01-14 19:50] LABS: Transitional Epithelial Cells Few /hpf (0-Rare)
== END | disposition home or self-care (01) ==
LOC: LAB 17:07 → LAB SHORT 17:07
PROVIDERS: Urology
DX: N39.0 Urinary tract infection, site not specified (principal)
CPT/HCPCS: 81001; 87086

== ENCOUNTER 2022-05-14 01:30 | Inpatient (IN) | payer OTHER ==
[~2022-05-14] VITALS: Ht 185.4 cm; Wt 111.7 kg
[2022-05-14 02:57] LABS: BASOPHILS ABSOLUTE AUTO 0.02 K/mm3 (0.00-0.23); BASOPHILS PERCENT AUTO 0 % (0-2); EOSINOPHILS PERCENT AUTO 1 % (0-6); Hematocrit 51.7 % (37.0-53.0); Hemoglobin 16.5 g/dL (13.5-17.5); IMMATURE GRAN ABSOLUTE AUTO 0.03 K/mm3 (0.00-0.10); IMMATURE GRAN PERCENT AUTO 0 % (0-1); LYMPHOCYTES ABSOLUTE AUTO 0.94 K/mm3 (0.84-5.20); LYMPHOCYTES PERCENT AUTO 7 % (21-46); MONOCYTES ABSOLUTE AUTO 0.55 K/mm3 (0.16-1.47); MONOCYTES PERCENT AUTO 4 % (4-13); Mean Corpuscular HGB Conc 31.9 g/dL (31.5-36.5); Mean Corpuscular Volume 88 fL (80-100); Mean Platelet Volume 11.7 fL (9.1-12.4); NEUTROPHILS ABSOLUTE AUTO 11.93 K/mm3 (1.96-9.15); NEUTROPHILS PERCENT AUTO 88 % (41-73); Platelet Count 167 K/mm3 (150-400); RDW Coefficient Variation 15.3 % (11.7-14.2); White Blood Cell Count 13.57 K/mm3 (4.00-11.30)
[2022-05-14 03:01] LABS: Source, Urine Suprapubic Cath
[2022-05-14 03:07] LABS: Bilirubin, Urine Neg (Neg); Blood, Urine 5+ (Neg); Glucose Qualitative, Urine Neg (Neg); Ketones, Urine Neg (Neg); Leukocyte Esterase, Urine 3+ (Neg); Nitrite, Urine Neg (Neg); Protein, Urine 2+ (Neg); Urobilinogen, Urine NORM (Normal)
[2022-05-14 03:17] LABS: Albumin, Blood 4.2 g/dL (3.4-5.0); Bilirubin, Total 0.6 mg/dL (0.1-1.0); Bun/Creatinine Ratio 23.7 (12.0-20.0); Calcium, Blood 9.9 mg/dL (8.5-10.1); Creatinine, Blood 0.72 mg/dL (0.60-1.20); Globulin, Blood 4.1 g/dL (2.2-4.0); Magnesium, Blood 2.2 mg/dL (1.6-2.4); Potassium, Blood 4.4 mmol/L (3.5-5.5); Total Protein, Blood 8.3 g/dL (6.4-8.2)
[2022-05-14 03:40] LABS: Appearance, Urine Hazy (Clear); Color, Urine Yellow (P-Yellow)
[2022-05-14 03:41] LABS: Bacteria Few /hpf; Red Blood Cells, Urine TNTC /hpf (0-2); Squamous Epithelial Cells Not Seen /hpf (Few); White Blood Cells, Urine 25-50 /hpf (0-5)
[2022-05-14 03:57] LABS: Influenza A, PCR NEGATIVE (NEGATIVE); Influenza B, PCR NEGATIVE (NEGATIVE); Resp Syncytial Virus, PCR NEGATIVE (NEGATIVE); SARS-Cov-2 (COVID-19) PCR, MMC NEGATIVE (NEGATIVE)
[2022-05-14] MEDS ORDERED: ZINC15 PO (12:50)
[2022-05-14] MEDS ORDERED: C COMPLEX1000 M1 PO (12:51)
--- NOTE | 2022-05-14 19:03 | NUR ---
SHIFT SUMMARY PATIENT ADMITTED FROM ER FOR SEPSIS, C/O NAUSEA AND MUSCLE SPASMS. PATIENT HAD ONE EPISODE OF FULL BODY MUSCLE SPASM. A&OX4, LIFT PATIENT, PARAPALEGIC. Q2H REPOSITIONING. SISTER(MD SENIOR RESEARCH SCIENTIST AT HOME) AT BEDSIDE MOST OF SHIFT ASSITING WITH PATIENTS NEEDS. ARMS CONTRACTED BUT ABLE TO MOVE. SUPRAPUBIC CATHETER POA AND CHANGED YESTERDAY AFTER UROSCOPY. CONTACT ISOLATION FOR ESBL IN URINE. COLOSTOMY BAG POA. USES BIPAP WITH 2LNC WHEN SLEEPING. RECEIVING IV FLUIDS AND ANTIBIOTICS. C/O PAIN, MEDICATED PER NOV X1. REPORT GIVEN TO ONCOMING RN.
--- NOTE | 2022-05-15 04:16 | NUR ---
SHIFT SUMMARY PATIENT REPORTED BLADDER SPASM X ONE AND IV DIAZEPAN 2.5 MG GIVEN PER EMAR WITH GOOD EFFECT. REPORTED BLADDER PAIN AND FENTANYL 50 MCG GIVEN PER EMAR AND PATIENT ABLE TO SLEEP. PIV REMAINS INTACT. IV ABX INFUSED. NS INFUSING AT 150 mL/HR. LIFT PATIENT, PARAPALEGIC. ARMS/HANDS CONTRACTED. Q2H REPOSITIONING. SUPRAPUBIC CATHETER DRAINING. COLOSTOMY APPLIANCE INTACT. SISTER IS CAREGIVER AND IN ROOM T/O SHIFT. USES BIPAP WITH 2L O2 BLEED IN. ON CONTINUOUS PULSE OXIMETRY. STATING >92%. VSS/AFEBRILE. DENIES SOB AND N/V. CALL LIGHT IN REACH. BED IN LOWEST POSITION. WILL CONTINUE TO MONITOR UNTIL DAY SHIFT NURSE ASSUMES CARE.
[2022-05-15 04:44] LABS: BASOPHILS ABSOLUTE AUTO 0.02 K/mm3 (0.00-0.23); BASOPHILS PERCENT AUTO 0 % (0-2); EOSINOPHILS ABSOLUTE AUTO 0.15 K/mm3 (0.00-0.68); EOSINOPHILS PERCENT AUTO 2 % (0-6); Hematocrit 44.9 % (37.0-53.0); Hemoglobin 14.2 g/dL (13.5-17.5); IMMATURE GRAN ABSOLUTE AUTO 0.04 K/mm3 (0.00-0.10); IMMATURE GRAN PERCENT AUTO 0 % (0-1); LYMPHOCYTES ABSOLUTE AUTO 1.29 K/mm3 (0.84-5.20); LYMPHOCYTES PERCENT AUTO 13 % (21-46); MONOCYTES ABSOLUTE AUTO 0.77 K/mm3 (0.16-1.47); MONOCYTES PERCENT AUTO 8 % (4-13); Mean Corpuscular HGB 28.1 pg (26.0-34.0); Mean Corpuscular HGB Conc 31.6 g/dL (31.5-36.5); Mean Corpuscular Volume 89 fL (80-100); Mean Platelet Volume 11.7 fL (9.1-12.4); NEUTROPHILS ABSOLUTE AUTO 7.87 K/mm3 (1.96-9.15); NEUTROPHILS PERCENT AUTO 78 % (41-73); Platelet Count 123 K/mm3 (150-400); RDW Coefficient Variation 15.7 % (11.7-14.2); RDW Standard Deviation 51.4 fL (35.1-46.3); Red Blood Cell Count 5.05 M/mm3 (4.30-5.90); White Blood Cell Count 10.14 K/mm3 (4.00-11.30)
[2022-05-15 05:03] LABS: Albumin, Blood 3.2 g/dL (3.4-5.0); Albumin/Globulin Ratio 0.9 (0.8-1.8); Bilirubin, Total 0.5 mg/dL (0.1-1.0); Bun/Creatinine Ratio 22.7 (12.0-20.0); Calcium, Blood 8.5 mg/dL (8.5-10.1); Creatinine, Blood 0.53 mg/dL (0.60-1.20); Globulin, Blood 3.6 g/dL (2.2-4.0); Potassium, Blood 3.8 mmol/L (3.5-5.5); Total Protein, Blood 6.8 g/dL (6.4-8.2)
--- NOTE | 2022-05-15 17:28 | NUR ---
SHIFT SUMMARY PATIENT A&OX4. PARAPALEGIC, LIFT PATIENT. REPOSITIONED Q2H. SISTER (AT HOME TRANSIT OPERATOR) IN ROOM MOST OF SHIFT ASSITING WITH PATIENT CARE. SUPRAPUBIC CATHETER DRAINING TO GRAVITY. COLOSTOMY DEVICE PRESENT. RECEIVING IV ANTIBIOTICS. IV FLUIDS STOPPED. USES BIPAP WITH 2L WHEN SLEEPING. ON TELE IN THE 90S. C/O PAIN, MEDICATED PER MAR X1. VSS. WILL CONTINUE TO MONITOR.
--- NOTE | 2022-05-16 05:05 | NUR ---
SHIFT SUMMARY PATIENT REPORTED BLADDER SPASM X ONE AND IV VALIUM 2.5 MG GIVEN PRN. AXOX 4 AND BEDREST, PARAPLEGIC. LIFT PATIENT. REPORTS WANTS TO CHANGE OUT BED TO AIR BED ON DAY SHIFT. REPORTED BACK/BLADDER PAIN X 2 AND IV FENTANYL 50 MCG GIVEN PER EMAR. PIV REMAINS INTACT. IV ABX INFUSED. SUPRAPUBIC CATHETER DRAINING TO GRAVITY. COLOSTOMY DEVICE INTACT. USES BIPAP AT NIGHT WITH 2L O2 BLEED IN. MACHINE PRESERVATIVE FILLER NSR 76. SISTER CAREGIVER STAYS IN ROOM TO HELP OUT T/O SHIFT. CALL LIGHT IN REACH. BED IN LOWEST POSITION. WILL CONTINUE TO MONITOR UNTIL DAY SHIFT NURSE ASSUMES CARE.
--- NOTE | 2022-05-16 18:24 | NUR ---
SHIFT SUMMARY PT A&OX4 AND IN PLEASENT MOOD T/O SHIFT. PT TOLERATING PO INTAKE WELL. SISTER @ BEDSIDE T/O SHIFT. PT REPOSITIONED Q3H, BED BATH PROVIDED THIS SHIFT. CALL LIGHT W/IN REACH. C/O PAIN MEDICATED PER EMAR, BLADDER SPASMS NOTED. CALL LIGHT W/IN REACH. MIN USE OF BUE. VSS.
--- NOTE | 2022-05-17 05:04 | NUR ---
SHIFT SUMMARY 41 YR M ADMITTED ON 05/14/22 FOR UTI/SEPSIS. FULL CODE. NO ACUTE CHANGES THIS SHIFT. PT'S SISTER, JABIER, IS AT BEDSIDE AND IS VERY PROACTIVE IN HIS CARE. HE IS PLEASANT AND COOPERATIVE AND HAS A GREAT ATTITUDE TOWARD LIFE. HE LOVES TO TALK AND TELL STORIES. BIPAP WORN WHILE SLEEPING AND TOLERATED WELL. SUPRAPUBIC CATHETER IS PATENT AND DRAINING WELL. COLOSTOMY IS MANAGED BY HIS SISTER AND BAG WAS CHANGED THIS SHIFT. HE C/O PAIN IN HIS URINARY TRACT AND WAS TREATED W/ FENTNYL PER EMAR.
--- NOTE | 2022-05-17 13:52 | NUR ---
Upon receiving spiritual care referral, I visit pt. Pt tells me about the events that led to his quadriplegia, the infection that brought him to the hospital and his plan moving forward. Pt is extremely hopeful and positive especially considering the limitations and health issues that he endures. Pt has shared his message of hope with youth groups, with addiction gatherings and men's groups. Pt desires to encourage others and loves to use music as a part of that message. Pt states that he would like to be a part of encouraging other pt's especailly those with new onset of loss of mobility or addiction issues. I provide therapeutic listening and prayer. Pt responds well and shows signs of increased peace and being encouraged in his Congregational drew.
--- NOTE | 2022-05-17 17:33 | NUR ---
SHIFT SUMMARY- PT PLEASANT. PT C/O PAIN X2 DURING SHIFT, PT STATED PAIN BETTER MANAGED TODAY THE PREVIOUS DAYS. MEDICATED PER EMAR. OSTOMY BAG IN PLACE. STOMA BEEFY AND DRY. FOUNTAIN CLEAR YELLOW URINE, NO PURULENT DRAINAGE NOTED. PT HAS USE OF RIGHT HAND FOR SMALL NEEDS. TURNED PT FOR COMFORT Q2 HR. VSS. ON RA, SATTING 90-94 ON CONT. OX. CALL LIGHT IN [facility], SIDE RAILS UP. WILL CONTINUE TO MONITOR.
--- NOTE | 2022-05-18 03:30 | NUR ---
SHIFT SUMMARY; PATIENT IS TURNED Q 3 HOURS PER HIS REQUEST. HE IS AO X 4. PATIENT CURRENTLY RECEIVING IV ANTIBIOTICS FOR SEPSIS 2ND TO UTI. HIS SISTER IS AT BEDSIDE. LUNGS ARE DIM AND COARSE IN THE BASES. VITAL SIGNS ARE WNL. HE IS NOT FEBRILE. WILL REMAIN AVAILABLE FOR THIS PATIENT FOR ANY WANTS OR NEEDS THAT COME UP PRIOR TO SHIFT CHANGE AND REPORT TO DAY SHIFT RN.
[2022-05-18 05:11] LABS: Hematocrit 48.8 % (37.0-53.0); Hemoglobin 15.5 g/dL (13.5-17.5); Mean Corpuscular HGB 27.9 pg (26.0-34.0); Mean Corpuscular HGB Conc 31.8 g/dL (31.5-36.5); Mean Corpuscular Volume 88 fL (80-100); Mean Platelet Volume 11.1 fL (9.1-12.4); Platelet Count 184 K/mm3 (150-400); RDW Coefficient Variation 14.9 % (11.7-14.2); RDW Standard Deviation 48.3 fL (35.1-46.3); Red Blood Cell Count 5.56 M/mm3 (4.30-5.90); White Blood Cell Count 6.95 K/mm3 (4.00-11.30)
[2022-05-18 05:36] LABS: Albumin, Blood 3.5 g/dL (3.4-5.0); Albumin/Globulin Ratio 0.9 (0.8-1.8); Bilirubin, Total 0.5 mg/dL (0.1-1.0); Bun/Creatinine Ratio 30.4 (12.0-20.0); Calcium, Blood 9.9 mg/dL (8.5-10.1); Creatinine, Blood 0.49 mg/dL (0.60-1.20); Potassium, Blood 3.9 mmol/L (3.5-5.5); Total Protein, Blood 7.5 g/dL (6.4-8.2)
--- NOTE | 2022-05-18 16:54 | NUR ---
SHIFT SUMMARY- PT TURNED Q3 OR REQUESTED. BATH GIVEN. OSTOMY BAG REPLACED. VSS. NO ACUTE CHANGES. PT STATED REDUCE BLADDER PAIN. MUSCLE TREMORS X1 WITH REPOSITIONING. PT A&O X3. FAMILY AT BEDSIDE. CALL LIGHT IN REACH, SIDE RAILS UP FOR SAFETY, AND BEDALARM ON.
--- NOTE | 2022-05-19 04:26 | NUR ---
SHIFT SUMMARY; NO ACUTE CHANGES IN PATIENT CONDITION NOTED TODAY. VITAL SIGNS STABLE PATIENT AFEBRILE. PLAN IS FOR POSSIBLE DC IN THE AM.
--- NOTE | 2022-05-19 08:00 | NUR ---
pt laying in bed with caregiver in room, a/ox3, pleasant and cooperative with care, follows commands well, denies pain, states he's doing good, lungs are clear dim t/o, resp even and unlabored, no cough noted, hrr, iv to rac, site is clear and patent, btx3, abd flat soft nontender, colostomy draining wnl, supra pubic cath in place draining an orange colored urine due to medication, skin c/w/d, upper ext are contracted, lower ext are flacid, jerson, swallows po meds without diff, call light in reach.
[2022-05-19] MEDS ORDERED: Pyridium100 MG PO (11:24)
[2022-05-19] MEDS ORDERED: OXYB5 PO (11:24)
[2022-05-19] MEDS ORDERED: BACLOFEN5 M1 PO (11:24)
[2022-05-19] MEDS ORDERED: CEFD300 PO (11:25)
[2022-05-19] MEDS ORDERED: OXAYDO5 M1 PO ×2 (12:22→12:23)
--- NOTE | 2022-05-19 12:41 | NUR ---
Pt has been discharged to home, went over instructions with him and caregiver, they verbalized understanding, iv removed intact, they are calling for transportation.
--- NOTE | 2022-05-19 14:13 | NUR ---
Pt left via gurney with transport.
== END 2022-05-19 14:00 | disposition home or self-care (01) | DRG 871 ==
LOC: ER 01:30 → MEDS 05:29
PROVIDERS: Internal Medicine; Student in an Organized Health Care Education/Training Program; ADMIT Internal Medicine
DX: A41.52 Sepsis due to Pseudomonas (principal); G82.54 Quadriplegia, C5-C7 incomplete; N39.0 Urinary tract infection, site not specified; Z16.12 Extended spectrum beta lactamase (ESBL) resistance; F32.9 Major depressive disorder, single episode, unspecified; F15.10 Other stimulant abuse, uncomplicated; R09.02 Hypoxemia; G90.4 Autonomic dysreflexia; R65.20 Severe sepsis without septic shock; G47.30 Sleep apnea, unspecified; I73.9 Peripheral vascular disease, unspecified; R25.1 Tremor, unspecified; Z20.822 Contact with and (suspected) exposure to COVID-19; Z99.81 Dependence on supplemental oxygen; Z86.19 Personal history of other infectious and parasitic diseases; Z88.0 Allergy status to penicillin; Z88.8 Allergy status to other drugs, medicaments and biological substances; Z88.2 Allergy status to sulfonamides; Z88.1 Allergy status to other antibiotic agents; Z79.899 Other long term (current) drug therapy; Z79.01 Long term (current) use of anticoagulants; Z86.718 Personal history of other venous thrombosis and embolism; Z79.51 Long term (current) use of inhaled steroids; Z87.01 Personal history of pneumonia (recurrent); Z98.890 Other specified postprocedural states; Z93.3 Colostomy status; Z89.421 Acquired absence of other right toe(s); Z87.891 Personal history of nicotine dependence; Z87.442 Personal history of urinary calculi; Z74.01 Bed confinement status; Z98.1 Arthrodesis status
CPT/HCPCS: 0241U; 36415; 71045; 80053; 81001; 83605; 83735; 84145; 84484; 85025; 85027; 87040; 87077; 87086; 87186; 93005; 93010; 93970; 94660; 94760; 94762; 96365; 96367; 96375; 97110; 97140; 97161; 99285-25; A9270; J0692; J1170; J1885; J2185; J3010; J3360; J7030; J7050

== ENCOUNTER 2022-08-17 01:10 | Emergency (ER) | payer OTHER ==
[~2022-08-17] VITALS: Ht 185.4 cm; Wt 106.6 kg
[~2022-08-17 01:10] MED LIST changes: +BACLOFEN5 M1 PO; +C COMPLEX1000 M1 PO; +OXAYDO5 M1 PO; +Pyridium100 MG PO; +ZINC15 PO
[2022-08-17 01:28] LABS: BASOPHILS ABSOLUTE AUTO 0.04 K/mm3 (0.00-0.23); BASOPHILS PERCENT AUTO 1 % (0-2); EOSINOPHILS ABSOLUTE AUTO 0.34 K/mm3 (0.00-0.68); EOSINOPHILS PERCENT AUTO 4 % (0-6); Hematocrit 48.8 % (37.0-53.0); Hemoglobin 15.5 g/dL (13.5-17.5); IMMATURE GRAN ABSOLUTE AUTO 0.02 K/mm3 (0.00-0.10); IMMATURE GRAN PERCENT AUTO 0 % (0-1); LYMPHOCYTES ABSOLUTE AUTO 2.51 K/mm3 (0.84-5.20); LYMPHOCYTES PERCENT AUTO 30 % (21-46); MONOCYTES ABSOLUTE AUTO 0.57 K/mm3 (0.16-1.47); MONOCYTES PERCENT AUTO 7 % (4-13); Mean Corpuscular HGB 27.6 pg (26.0-34.0); Mean Corpuscular HGB Conc 31.8 g/dL (31.5-36.5); Mean Corpuscular Volume 87 fL (80-100); Mean Platelet Volume 11.6 fL (9.1-12.4); NEUTROPHILS ABSOLUTE AUTO 4.88 K/mm3 (1.96-9.15); NEUTROPHILS PERCENT AUTO 58 % (41-73); Platelet Count 177 K/mm3 (150-400); RDW Coefficient Variation 15.1 % (11.7-14.2); RDW Standard Deviation 47.8 fL (35.1-46.3); Red Blood Cell Count 5.62 M/mm3 (4.30-5.90); White Blood Cell Count 8.36 K/mm3 (4.00-11.30)
[2022-08-17 01:41] LABS: Albumin, Blood 3.9 g/dL (3.4-5.0); Bilirubin, Total 0.3 mg/dL (0.1-1.0); Bun/Creatinine Ratio 20.7 (12.0-20.0); Calcium, Blood 9.8 mg/dL (8.5-10.1); Creatinine, Blood 0.77 mg/dL (0.60-1.20); Globulin, Blood 3.8 g/dL (2.2-4.0); Potassium, Blood 3.7 mmol/L (3.5-5.5); Total Protein, Blood 7.7 g/dL (6.4-8.2)
[2022-08-17 01:59] LABS: Source, Urine Foley catheter
[2022-08-17 02:13] LABS: Bilirubin, Urine Neg (Neg); Blood, Urine 3+ (Neg); Glucose Qualitative, Urine Neg (Neg); Ketones, Urine Neg (Neg); Leukocyte Esterase, Urine 1+ (Neg); Nitrite, Urine Neg (Neg); Protein, Urine 3+ (Neg); Urobilinogen, Urine NORM (Normal)
[2022-08-17 02:34] LABS: Appearance, Urine Hazy (Clear); Color, Urine Yellow (P-Yellow)
[2022-08-17 02:35] LABS: Bacteria Many /hpf; Squamous Epithelial Cells Few /hpf (Few)
== END 2022-08-17 04:16 | disposition home or self-care (01) ==
LOC: ER 01:10
PROVIDERS: Emergency Medicine; Student in an Organized Health Care Education/Training Program
DX: R07.9 Chest pain, unspecified (principal)
CPT/HCPCS: 71046; 80053; 81001; 83690; 83880; 84484; 85025; 93005; 93010; J2405

== ENCOUNTER 2022-08-26 06:48 | Day surgery (SDC) | payer OTHER ==
[~2022-08-26] VITALS: Ht 185.4 cm; Wt 113.4 kg
--- NOTE | 2022-08-26 08:09 | NUR ---
08/26/22 0809 Jason Elizabeth History, Chart, Medications and Allergies reviewed before start of procedure.MONITOR INTACT WITH CONTINUOUS PULSE OXIMETRY AND INTERMITTENT BP.3-LEAD EKG REVIEWED WITH PHYSICIAN PRIOR TO START OF PROCEDURE.O2 VIA POM INTACT THROUGHOUT SEDATION/PROCEDURE. See Anesthesia record.
--- NOTE | 2022-08-26 08:55 | NUR ---
PT NEED MUCH ENCOURAGEMENT TO STAY AWAKE AND KEEP O2 SATURATIONS UP. PT ABLE TO GET BIOX UP TO ABOUT 90% BUT WILL NOT STAY. PT PLACED ON NRB 10L.
--- NOTE | 2022-08-26 09:11 | NUR ---
PT C/O HAVING PRESSURE IN HIS UPPER ABD/CHEST. PT IS PASSING ALOT OF GAS. COLOSTOMY BAG BURPED BY HIS SISTER. PT PLACED INTO HIS WHEELCHAIR FOR HIS COMFORT USING THE BHANU LIFT. PT STILL REMAIN 3L IN HIS MOUTH. PT FALLS ASLEEP AND O2 SATURATIONS DROP INTO LOW 80'S. PT IS ENCOURAGED TO TAKE DEEP BREATHS AND COUGH. PT IS ABLE TO GET HIS O2 SATURATIONS UP TO ABOUT 88%. SPOKE WITH DR. HUITRON REQUEST TO PLACE PT ON BIPAP UNTIL HE IS MORE AWAKE. PT USES BIPAP AT HOME. PT SISTER AT BEDSIDE
--- NOTE | 2022-08-26 09:38 | NUR ---
RT AT BEDSIDE PLACING BIPAP.
--- NOTE | 2022-08-26 10:05 | NUR ---
PT RESTING COMFORTABLY. BIPAP AT 5L BIOX AT 94% AT THIS TIME. WILL CONTINUE TO MONITOR PATIENT AND ALLOW TO MAKE UP MORE PRIOR TO GOING HOME.
--- NOTE | 2022-08-26 10:15 | NUR ---
PT GIVEN SIPS OF WATER. PT APPEARS A LITTLE MORE AWAKE. BIOX BETWEEN 93-98% ON BIPAP. DR. HUITRON AT BEDSIDE AND TALK WITH PT. AFTER TALKING WITH PT AN HIS SISTER. PT WOULD LIKE TO TRY AND REST A LITTLE MORE BEFORE TRYING TO TAKE BIPAP OFF AND SEE IF HE CAN MAINTAIN O2 SATURATIONS PRIOR TO GOING HOME. PT [place]IVES [place] MIN[place] TOWN.
--- NOTE | 2022-08-26 10:30 | NUR ---
PT REQUESTED FOR BIPAP TO BE REMOVED. PT BIOX AT THIS POINT IS 95% ON RA. PT HAS TAKEN SIPS OF WATER. I HAVE DC'D PT IV AND REVIEWD DISCHARGE INSTRUCTIONS WITH PT. I WILL MOINTOR PT FOR A BIT TO MAKE SURE HE MAINTAINS BIOX ABOVE 92% PRIOR TO DISCHARGE.
--- NOTE | 2022-08-26 10:40 | NUR ---
PT ABLE TO KEEP BIOX OF 94%RA FOR A WHILTE PRIOR TO DISCHARGE. PT IN NO ACUTE DISTRESS. PT OUT OF DEPARTMENT WITH HIS SISTER TO HOME.
[2022-08-26] MEDS ORDERED: MYRBETRIQ50 MG PO (15:44)
[2022-08-26] MEDS ORDERED: NITR100CA PO (15:46)
[2022-08-26] MEDS ORDERED: LEVOCETIRIZINE D5 MG PO (15:47)
[2022-08-26] MEDS ORDERED: MUPIROCIN1 G1 TOP (16:29)
== END 2022-08-26 10:40 | disposition home or self-care (01) ==
LOC: ORSCMMR 06:48
PROVIDERS: Student in an Organized Health Care Education/Training Program
PROC: 0DB58ZX Excision of Esophagus, Via Natural or Artificial Opening Endoscopic, Diagnostic (ICD-10-PCS; principal; 2022-08-26 08:00)
PROC: 0DB98ZX Excision of Duodenum, Via Natural or Artificial Opening Endoscopic, Diagnostic (ICD-10-PCS; principal; 2022-08-26 08:00)
PROC: 0DB78ZX Excision of Stomach, Pylorus, Via Natural or Artificial Opening Endoscopic, Diagnostic (ICD-10-PCS; principal; 2022-08-26 08:00)
DX: R13.10 Dysphagia, unspecified (principal); K21.9 Gastro-esophageal reflux disease without esophagitis; K29.70 Gastritis, unspecified, without bleeding; I10 Essential (primary) hypertension; G47.33 Obstructive sleep apnea (adult) (pediatric); J45.909 Unspecified asthma, uncomplicated; Z79.899 Other long term (current) drug therapy
CPT/HCPCS: 88305; 88342; 94660; J2001; J2704; J7120

== ENCOUNTER 2022-08-26 10:45 | Emergency (ER) | payer OTHER ==
[~2022-08-26] VITALS: Ht 185.4 cm; Wt 113.4 kg
[2022-08-26] MEDS ORDERED: MYRBETRIQ50 MG PO (15:44)
[2022-08-26] MEDS ORDERED: NITR100CA PO (15:46)
[2022-08-26] MEDS ORDERED: LEVOCETIRIZINE D5 MG PO (15:47)
[2022-08-26] MEDS ORDERED: MUPIROCIN1 G1 TOP (16:29)
== END 2022-08-26 17:30 | disposition home or self-care (01) ==
LOC: ER 10:45
DX: L89.899 Pressure ulcer of other site, unspecified stage (principal); Z79.899 Other long term (current) drug therapy; Z79.02 Long term (current) use of antithrombotics/antiplatelets; Z88.0 Allergy status to penicillin; Z88.2 Allergy status to sulfonamides; Z88.8 Allergy status to other drugs, medicaments and biological substances; Z87.891 Personal history of nicotine dependence
CPT/HCPCS: 99282

== ENCOUNTER 2022-09-09 01:13 | Day surgery (SDC) | payer OTHER ==
[~2022-09-09 01:13] MED LIST changes: +LEVOCETIRIZINE D5 MG PO; +MUPIROCIN1 G1 TOP
== END 2022-09-09 23:18 | disposition home or self-care (01) ==
LOC: WOUND 01:13
DX: L24.A2 Irritant contact dermatitis due to fecal, urinary or dual incontinence (principal); G82.50 Quadriplegia, unspecified; G90.4 Autonomic dysreflexia; Z88.0 Allergy status to penicillin; Z88.2 Allergy status to sulfonamides; Z88.8 Allergy status to other drugs, medicaments and biological substances; Z91.040 Latex allergy status; Z88.1 Allergy status to other antibiotic agents
CPT/HCPCS: A9270; G0463

== ENCOUNTER 2022-09-16 02:03 | Day surgery (SDC) | payer OTHER | END 2022-09-17 23:37 | disposition home or self-care (01) | LOC: WOUND 02:03 | DX: L24.A2 Irritant contact dermatitis due to fecal, urinary or dual incontinence (principal); G90.4 Autonomic dysreflexia; G82.50 Quadriplegia, unspecified | CPT/HCPCS: A9270; G0463 ==

== ENCOUNTER 2023-01-01 00:50 | Inpatient (IN) | payer OTHER, MEDICARE ==
[2023-01-01] VITALS (7 sets, daily range): BP systolic 100–124; BP diastolic 60–71
[~2023-01-01] VITALS: Ht 172.7 cm; Wt 90.7 kg
[~2023-01-01 00:50] MED LIST changes: -BACLOFEN5 M1 PO; +BACLOFEN5 MG/5 ML UD
[2023-01-01 01:15] LABS: Source, Urine Suprapubic Cath
[2023-01-01 01:19] LABS: BASOPHILS ABSOLUTE AUTO 0.03 K/mm3 (0.00-0.23); BASOPHILS PERCENT AUTO 0 % (0-2); EOSINOPHILS ABSOLUTE AUTO 0.12 K/mm3 (0.00-0.68); EOSINOPHILS PERCENT AUTO 1 % (0-6); Hematocrit 47.4 % (37.0-53.0); Hemoglobin 15.6 g/dL (13.5-17.5); IMMATURE GRAN ABSOLUTE AUTO 0.05 K/mm3 (0.00-0.10); IMMATURE GRAN PERCENT AUTO 0 % (0-1); LYMPHOCYTES ABSOLUTE AUTO 0.93 K/mm3 (0.84-5.20); LYMPHOCYTES PERCENT AUTO 6 % (21-46); MONOCYTES ABSOLUTE AUTO 0.45 K/mm3 (0.16-1.47); MONOCYTES PERCENT AUTO 3 % (4-13); Mean Corpuscular HGB 28.3 pg (26.0-34.0); Mean Corpuscular HGB Conc 32.9 g/dL (31.5-36.5); Mean Corpuscular Volume 86 fL (80-100); Mean Platelet Volume 11.4 fL (9.1-12.4); NEUTROPHILS ABSOLUTE AUTO 13.54 K/mm3 (1.96-9.15); NEUTROPHILS PERCENT AUTO 90 % (41-73); Platelet Count 161 K/mm3 (150-400); RDW Coefficient Variation 14.6 % (11.7-14.2); RDW Standard Deviation 46.7 fL (35.1-46.3); Red Blood Cell Count 5.51 M/mm3 (4.30-5.90); White Blood Cell Count 15.12 K/mm3 (4.00-11.30)
[2023-01-01 01:29] LABS: Bilirubin, Urine Neg (Neg); Blood, Urine 3+ (Neg); Glucose Qualitative, Urine Neg (Neg); Ketones, Urine 1+ (Neg); Leukocyte Esterase, Urine 3+ (Neg); Nitrite, Urine Pos (Neg); Protein, Urine 2+ (Neg); Urobilinogen, Urine NORM (Normal)
[2023-01-01 01:34] LABS: Appearance, Urine Hazy (Clear); Color, Urine Yellow (P-Yellow)
[2023-01-01 01:39] LABS: Albumin, Blood 3.8 g/dL (3.4-5.0); Bilirubin, Total 0.6 mg/dL (0.1-1.0); Bun/Creatinine Ratio 22.4 (12.0-20.0); Calcium, Blood 8.9 mg/dL (8.5-10.1); Creatinine, Blood 0.67 mg/dL (0.60-1.20); Globulin, Blood 3.9 g/dL (2.2-4.0); Total Protein, Blood 7.7 g/dL (6.4-8.2)
[2023-01-01 01:43] LABS: Bacteria Many /hpf; Red Blood Cells, Urine 0-2 /hpf (0-2); Squamous Epithelial Cells Rare /hpf (Few); White Blood Cells, Urine 50-100 /hpf (0-5)
[2023-01-01 02:07] LABS: Potassium, Blood 3.7 mmol/L (3.5-5.5)
[2023-01-01] MEDS ORDERED: GENTAMICIN 40 MG/ML UR (04:37)
[2023-01-01] MEDS ORDERED: PANTOPRAZOLE SO2010 PO (04:37)
[2023-01-01] MEDS ORDERED: GLUCOSAMINE CHONDROI PO (04:40)
--- NOTE | 2023-01-01 08:00 | NUR ---
pt laying in bed sister at bedside, pt a/ox3, pleasant and cooperative with care, follows commands well, denies pain at this time, lungs are clear in upper issa course in bases, resp even and unlaobored, no cough noted, hrr, tele in place running sr per monitor, see strip, no to trace edema noted to b/l low, pt is quad, unable to move legs arms are contracted, piv to rac site is clear and patent, infusing fluids as ordered, bt x2 abd large soft nontender, colostomy to left abd c/d/i, moves arms but hands are contracted, jerson, call light in reach.
[2023-01-01 08:23] LABS: BASOPHILS ABSOLUTE AUTO 0.02 K/mm3 (0.00-0.23); BASOPHILS PERCENT AUTO 0 % (0-2); EOSINOPHILS ABSOLUTE AUTO 0.01 K/mm3 (0.00-0.68); EOSINOPHILS PERCENT AUTO 0 % (0-6); Hematocrit 45.6 % (37.0-53.0); Hemoglobin 14.9 g/dL (13.5-17.5); IMMATURE GRAN ABSOLUTE AUTO 0.06 K/mm3 (0.00-0.10); IMMATURE GRAN PERCENT AUTO 0 % (0-1); LYMPHOCYTES ABSOLUTE AUTO 0.93 K/mm3 (0.84-5.20); LYMPHOCYTES PERCENT AUTO 7 % (21-46); MONOCYTES ABSOLUTE AUTO 0.54 K/mm3 (0.16-1.47); MONOCYTES PERCENT AUTO 4 % (4-13); Mean Corpuscular HGB 28.1 pg (26.0-34.0); Mean Corpuscular HGB Conc 32.7 g/dL (31.5-36.5); Mean Corpuscular Volume 86 fL (80-100); NEUTROPHILS ABSOLUTE AUTO 12.79 K/mm3 (1.96-9.15); NEUTROPHILS PERCENT AUTO 89 % (41-73); Platelet Count 146 K/mm3 (150-400); RDW Coefficient Variation 14.8 % (11.7-14.2); RDW Standard Deviation 47.3 fL (35.1-46.3); White Blood Cell Count 14.35 K/mm3 (4.00-11.30)
[2023-01-01 08:46] LABS: Albumin, Blood 3.7 g/dL (3.4-5.0); Bilirubin, Total 0.7 mg/dL (0.1-1.0); Bun/Creatinine Ratio 25.7 (12.0-20.0); Creatinine, Blood 0.66 mg/dL (0.60-1.20); Globulin, Blood 3.8 g/dL (2.2-4.0); Potassium, Blood 3.4 mmol/L (3.5-5.5); Total Protein, Blood 7.5 g/dL (6.4-8.2)
[2023-01-01] MEDS ORDERED: PROBIOTIC1 EA13 PO (15:21)
[2023-01-01] MEDS ORDERED: Cranberry400 MG PO (15:31)
--- NOTE | 2023-01-01 18:06 | NUR ---
Pt had an uneventful day, has been turned and cleaned, has ran a temp all day, no further changes this shift, call light in reach.
--- NOTE | 2023-01-02 01:03 | NUR ---
PT REPORTED FEELING CHEST PRESSURE. VSS. HOSPITALIST NOTIFIED AND GAVE ORDERS TO PERFORM 12 LEAD EKG AND TROPONIN LAB X 2 2 HOURS APART. WILL CONTINUE TO MONITOR PT FOR S/S OF DISTRESS.
[2023-01-02 02:01] LABS: BASOPHILS ABSOLUTE AUTO 0.02 K/mm3 (0.00-0.23); BASOPHILS PERCENT AUTO 0 % (0-2); EOSINOPHILS ABSOLUTE AUTO 0.04 K/mm3 (0.00-0.68); EOSINOPHILS PERCENT AUTO 1 % (0-6); Hemoglobin 14.1 g/dL (13.5-17.5); IMMATURE GRAN ABSOLUTE AUTO 0.01 K/mm3 (0.00-0.10); IMMATURE GRAN PERCENT AUTO 0 % (0-1); LYMPHOCYTES ABSOLUTE AUTO 1.17 K/mm3 (0.84-5.20); LYMPHOCYTES PERCENT AUTO 16 % (21-46); MONOCYTES ABSOLUTE AUTO 0.51 K/mm3 (0.16-1.47); MONOCYTES PERCENT AUTO 7 % (4-13); Mean Corpuscular HGB 28.4 pg (26.0-34.0); Mean Corpuscular HGB Conc 32.8 g/dL (31.5-36.5); Mean Corpuscular Volume 87 fL (80-100); Mean Platelet Volume 10.7 fL (9.1-12.4); NEUTROPHILS ABSOLUTE AUTO 5.77 K/mm3 (1.96-9.15); NEUTROPHILS PERCENT AUTO 77 % (41-73); Platelet Count 133 K/mm3 (150-400); RDW Coefficient Variation 15.1 % (11.7-14.2); RDW Standard Deviation 48.4 fL (35.1-46.3); Red Blood Cell Count 4.96 M/mm3 (4.30-5.90); White Blood Cell Count 7.52 K/mm3 (4.00-11.30)
--- NOTE | 2023-01-02 02:29 | NUR ---
HOSPITALIST NOTIFIED OF EKG WITH NSR @ 80 BPM AND FIRST TROPONIN OF 13. NO INSTRUCTIONS GIVEN AT THIS TIME.
--- NOTE | 2023-01-02 02:30 | NUR ---
SECOND TROPONIN WAS 11 TARIFF INSPECTOR NOTIFIED. HOSPITALIST NOT NOTIFIED BECAUSE IT IS TRENDING IN THE RIGHT DIRECTION.
--- NOTE | 2023-01-02 05:07 | NUR ---
SHIFT SUMMARY NOC PT A/O X 4. PLEASANT AND COOPERATIVE WITH CARE. DURING SHIFT PT HAD C/O OF CHEST PRESSURE AND VS TAKEN. VSS. HOSPITALIST NOTIFIED AND ORDERED 12 LEAD EKG AND 2 TROPONIN PANELS. HOSPITALIST WAS NOTIFIED OF EKG AND FIRST TROPONIN RESULTS AND GAVE NO FURTHER INSTRUCTIONS EXCEPT CONTINUE MONITORING PT. PT LATER HAD C/O OF BIOX GOING OFF FREQUENTLY. 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 NEW SENSOR WAS PLACE BY EXTENDING CONTRACTED FINGER TO MAKE PROPER CONTACT FOR AN ACCURATE READING. HR RATE MAINTAINING > 66 BPM. PT SUPRA PUBIC FOUNTAIN IS PATENT DRAINING YELLOW URINE TO GRAVITY. PT ON TELE RUNNING SINUS RHYTHM HR 64 BPM. PT IS CURRENTLY RESTING WITH CPAP ON, BED IN LOWEST POSITION, AND CALL LIGHT WITHIN REACH.
[2023-01-02 05:52] VITALS: BP 115/66
[2023-01-02 05:56] VITALS: BP 115/66
[2023-01-02 07:44] VITALS: BP 115/71
[2023-01-02 15:22] VITALS: BP 104/64
--- NOTE | 2023-01-02 18:35 | NUR ---
SHIFT SUMMARY- PT CALM AND COOPERATIVE THIS SHIFT. CALLS APPROPRIATELY. PAIN WELL CONTROLLED THIS SHIFT. PT GIVEN BED BATH THIS SHIFT. NO TEMPERATURES THIS SHIFT.
[2023-01-02 19:34] VITALS: BP 101/68
[2023-01-02 19:35] VITALS: BP 101/68
[2023-01-03 04:21] VITALS: BP 144/79
[2023-01-03 07:41] VITALS: BP 113/64
--- NOTE | 2023-01-03 08:29 | NUR ---
SUMMARY NO ACUTE CHANGES TONIGHT. PT TALKATIVE THIS AM.
--- NOTE | 2023-01-03 09:06 | NUR ---
PT BECAME AGITATED WITH THE BIOX AND INSISTED STAFF DISCONNECT IT AT THIS TIME. HE STATED HE WILL WEAR IT WHEN HE IS ON HIS CPAP.
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
[2023-01-03 15:06] VITALS: BP 127/73
--- NOTE | 2023-01-03 18:37 | NUR ---
SHIFT SUMMARY- PT DU HAD NO ACUTE CHANGE T/O THE SHIFT TODAY. HE DID HAVE SOME LEAKAGE FROM HIS SUPRAPUBIC CATH, MEDICATED WITH DITROPAN FOR BLADDER SPASAMS PER PT REQUEST, PARTIAL BED BATH PERFORMED. PT IS IN BED, CALL LIGHT IN REACH, REPOSITIONING WAS PERFORMED APPPROXIMATELY Q3 PER PT REQUEST. IV INFUSING TKO AT THIS TIME AFTER MERROPENNEM INFUSED. PT BED IN LOW POSSITION, NO CURRENT S&S OF DISTRESS NOTED. WILL CTM AND PASS ON TO NIGHT RN IN BEDSIDE REPORT.
[2023-01-03 19:29] VITALS: BP 113/60
--- NOTE | 2023-01-04 06:23 | NUR ---
Shift Summary. Pt repositioned Q3. Kraft patent and draining to gravity. Small output from colostomy. Pt was bradycardic during sleep, around 45 BPM. Upon waking HR returns to 60's. Pt on CPAP, O2 sat > 95%. C/O 5/10 sharp pain in neck, managed well with PRN Tylenol. Slept well t/o most of the night.
[2023-01-04 08:01] VITALS: BP 97/60
--- NOTE | 2023-01-04 12:15 | NUR ---
[facility]. PT WATCHING VIDEOS ON PHONE AT THIS TIME, PT DECLINES REPOSITIONING AND STATES HE WILL CALL WHEN WANTS REPOSITIONED. DENIES ANY NEEDS AT THIS TIME
--- NOTE | 2023-01-04 14:46 | NUR ---
LYING IN BED WITH EYES CLOSED EVEN AND UNLABORED RESPIRATIONS. REPORT GIVEN TO SELAM REDD RN
[2023-01-04 16:22] VITALS: BP 113/73
--- NOTE | 2023-01-04 16:39 | NUR ---
Patient immediately tells me about how his stay in the hospital will be extended and how disappointing that is for him. He talks at length about how our former Chaplian Kourtney Victoria helped him and encouraged him. He also talks about other mentors that he has had in life. We explore what he has gained and how to apply it in this moment. I provide therapeutic listening and prayer. Patient responded well and showed signs of improved spirits and greater hope.
[2023-01-04 19:17] VITALS: BP 129/76
--- NOTE | 2023-01-04 20:08 | NUR ---
SHIFT SUMMARY- PT HAS HAD NO ACUTE CHANGES T/O THE SHIFT. HE IS STILL RECIEVING IV ABX. PT WILL BE HERE ANOTHER COUPLE OF DAYS HE STATED AFTER SPEAKING TO DR BOTELLO EARLIER IN THE DAY. PT HAS RESTED FREQUENTLY TODAY AND HE REQUESTED A BED BATH, STAFF WERE UNABLE TO DO SO, PASSED ON TO NIGHT RN IN BEDSIDE REPORT. PT DID HAVE A C/O NAUSEA THIS EVENING AND WAS MEDICATED PER EMAR. NIGHT RN AWARE. PT IN BED, CALL LIGHT IN REACH, PT CALLS FREQUENTLY AND IS ABLE TO MAKE HIS NEEDS KNOWN.
[2023-01-05 01:49] VITALS: BP 108/63
--- NOTE | 2023-01-05 05:36 | NUR ---
SHIFT SUMMARY NOC PT A/O A 4. REPOSITIONED Q3H PER PT REQUEST. PT HAD C/O OF BLADDER/NECK PAIN AND ORDER FOR FENTANL WAS OBTAINED TO MANAGE PAIN. PT RECEIVED BED BATH DURING SHIFT. PT IS EXPECTED TO BE IN HOSPITAL FOR A COUPLE MORE DAYS AND THEN SWITCHED TO PO ABX FOR DC HOME. PT IS CURRENTLY RESTING WITH CPAP 2L BLEED IN O2, BED IN LOWEST POSITION, AND CALL LIGHT WITHIN REACH.
[2023-01-05 06:19] LABS: BASOPHILS ABSOLUTE AUTO 0.02 K/mm3 (0.00-0.23); BASOPHILS PERCENT AUTO 0 % (0-2); EOSINOPHILS ABSOLUTE AUTO 0.33 K/mm3 (0.00-0.68); EOSINOPHILS PERCENT AUTO 5 % (0-6); Hematocrit 45.9 % (37.0-53.0); Hemoglobin 14.6 g/dL (13.5-17.5); IMMATURE GRAN ABSOLUTE AUTO 0.02 K/mm3 (0.00-0.10); IMMATURE GRAN PERCENT AUTO 0 % (0-1); LYMPHOCYTES ABSOLUTE AUTO 2.09 K/mm3 (0.84-5.20); LYMPHOCYTES PERCENT AUTO 33 % (21-46); MONOCYTES PERCENT AUTO 8 % (4-13); Mean Corpuscular HGB Conc 31.8 g/dL (31.5-36.5); Mean Corpuscular Volume 88 fL (80-100); Mean Platelet Volume 11.1 fL (9.1-12.4); NEUTROPHILS PERCENT AUTO 53 % (41-73); Platelet Count 174 K/mm3 (150-400); RDW Coefficient Variation 14.9 % (11.7-14.2); RDW Standard Deviation 48.1 fL (35.1-46.3); Red Blood Cell Count 5.22 M/mm3 (4.30-5.90); White Blood Cell Count 6.36 K/mm3 (4.00-11.30)
[2023-01-05 06:34] LABS: Bun/Creatinine Ratio 29.6 (12.0-20.0); Calcium, Blood 9.3 mg/dL (8.5-10.1); Creatinine, Blood 0.51 mg/dL (0.60-1.20); Potassium, Blood 3.5 mmol/L (3.5-5.5)
[2023-01-05 07:17] VITALS: BP 150/88
[2023-01-05 15:47] VITALS: BP 122/86
--- NOTE | 2023-01-05 18:09 | NUR ---
SHIFT SUMMARY- PT IS A/O, PLESANT AND COOPERATIVE. HE IS EATING AND DRINKING WELL. HIS BED IS IN THE LOW POSTION AND CALL LIGHT IS WITIN REACH.
[2023-01-05 19:25] VITALS: BP 114/62
--- NOTE | 2023-01-06 05:09 | NUR ---
SHIFT SUMMARY NOC PT A/O X 4. PLEASANT AND COOPERATIVE WITH CARE. PT WANTED BED BATH AND TO BE PUT IN MOTORIZED CHAIR, BUT STAFF DID NOT HAVE TIME ASSIST PT TO DO SO. PT HAD C/O OF ITCHING ON CHEST AND UNDER CHIN. BENADRYL WAS GIVEN PER EMAR. PT WAS ABLE TO SLEEP, BUT WOKE UP AND STILL HAD C/O OF ITCHING. HOSPITALIST WAS CALLED TO OBTAIN ANOTHER ORDER FOR ANTI ITCHING RX, STILL WAITING FOR CALL BACK. PT EXPECTED TO D/C HOME TODAY. PT VEHICLE IS NOT OPERABLE AND ALTERNATIVE FORM OF TRANSPORT WILL BE NEEDED TO TAKE PT HOME. PT IS CURRENTLY RESTING WITH CPAP ON, BED IN LOWEST POSITION, AND CALL LIGHT WITHIN REACH.
[2023-01-06 08:31] VITALS: BP 120/86
[2023-01-06] MEDS ORDERED: NITR100CA PO (11:30)
== END 2023-01-06 13:44 | disposition home or self-care (01) | DRG 698 ==
LOC: ER 00:50 → MEDS 00:51
PROVIDERS: Emergency Medicine; Internal Medicine; Student in an Organized Health Care Education/Training Program; ADMIT Internal Medicine
PROC: 3E03329 Introduction of Other Anti-infective into Peripheral Vein, Percutaneous Approach (ICD-10-PCS; principal; 2023-01-01)
PROC: 5A09357 Assistance with Respiratory Ventilation, Less than 24 Consecutive Hours, Continuous Positive Airway Pressure (ICD-10-PCS; 2023-01-01)
DX: T83.511A Infection and inflammatory reaction due to indwelling urethral catheter, initial encounter (principal); A41.51 Sepsis due to Escherichia coli [E. coli]; G82.54 Quadriplegia, C5-C7 incomplete; Z16.29 Resistance to other single specified antibiotic; N39.0 Urinary tract infection, site not specified; F32.9 Major depressive disorder, single episode, unspecified; G90.4 Autonomic dysreflexia; B96.5 Pseudomonas (aeruginosa) (mallei) (pseudomallei) as the cause of diseases classified elsewhere; B95.2 Enterococcus as the cause of diseases classified elsewhere; Z88.0 Allergy status to penicillin; Z88.2 Allergy status to sulfonamides; Z88.8 Allergy status to other drugs, medicaments and biological substances; Z86.718 Personal history of other venous thrombosis and embolism; Z79.01 Long term (current) use of anticoagulants; Z79.899 Other long term (current) drug therapy; Z79.891 Long term (current) use of opiate analgesic; Z87.440 Personal history of urinary (tract) infections; Z87.01 Personal history of pneumonia (recurrent); Z98.1 Arthrodesis status; Z98.890 Other specified postprocedural states; Z89.421 Acquired absence of other right toe(s); Z93.3 Colostomy status; Z87.891 Personal history of nicotine dependence; Z86.19 Personal history of other infectious and parasitic diseases; Z99.3 Dependence on wheelchair; Y84.6 Urinary catheterization as the cause of abnormal reaction of the patient, or of later complication, without mention of misadventure at the time of the procedure
CPT/HCPCS: 36415; 71046; 80048; 80053; 81001; 83605; 84484; 85025; 87040; 87077; 87086; 87186; 93005; 93010; 94660; 94762; 96361; 96374; 96375; 97161; 99285-25; A9270; C9113; J1885; J2185; J2405; J3010; J7030; J7050

== ENCOUNTER → 2023-02-15 | Outpatient (CLI) | payer OTHER ==
[~2023-02-15] MED LIST changes: +Cranberry400 MG PO; +GENTAMICIN 40 MG/ML UR; +GLUCOSAMINE CHONDROI PO; +PANTOPRAZOLE SO2010 PO; +PROBIOTIC1 EA13 PO
[2023-02-15 13:18] LABS: BASOPHILS ABSOLUTE AUTO 0.02 K/mm3 (0.00-0.23); BASOPHILS PERCENT AUTO 0 % (0-2); EOSINOPHILS ABSOLUTE AUTO 0.24 K/mm3 (0.00-0.68); EOSINOPHILS PERCENT AUTO 4 % (0-6); Hematocrit 48.2 % (37.0-53.0); Hemoglobin 15.6 g/dL (13.5-17.5); IMMATURE GRAN ABSOLUTE AUTO 0.02 K/mm3 (0.00-0.10); IMMATURE GRAN PERCENT AUTO 0 % (0-1); LYMPHOCYTES ABSOLUTE AUTO 1.81 K/mm3 (0.84-5.20); LYMPHOCYTES PERCENT AUTO 29 % (21-46); MONOCYTES ABSOLUTE AUTO 0.41 K/mm3 (0.16-1.47); MONOCYTES PERCENT AUTO 7 % (4-13); Mean Corpuscular HGB 28.4 pg (26.0-34.0); Mean Corpuscular HGB Conc 32.4 g/dL (31.5-36.5); Mean Corpuscular Volume 88 fL (80-100); NEUTROPHILS ABSOLUTE AUTO 3.83 K/mm3 (1.96-9.15); NEUTROPHILS PERCENT AUTO 61 % (41-73); Platelet Count 187 K/mm3 (150-400); RDW Coefficient Variation 14.8 % (11.7-14.2); RDW Standard Deviation 47.8 fL (35.1-46.3); Red Blood Cell Count 5.49 M/mm3 (4.30-5.90); White Blood Cell Count 6.33 K/mm3 (4.00-11.30)
[2023-02-15 13:45] LABS: C-REACTIVE PROTEIN, EXT RANGE 1.03 mg/dL (0.000-0.300)
[2023-02-15 13:54] LABS: Albumin, Blood 3.9 g/dL (3.4-5.0); Albumin/Globulin Ratio 1.1 (0.8-1.8); Bilirubin, Total 0.4 mg/dL (0.1-1.0); Calcium, Blood 9.2 mg/dL (8.5-10.1); Creatinine, Blood 0.5 mg/dL (0.60-1.20); Globulin, Blood 3.5 g/dL (2.2-4.0); Potassium, Blood 4.1 mmol/L (3.5-5.5); Total Protein, Blood 7.4 g/dL (6.4-8.2)
== END | disposition home or self-care (01) ==
LOC: LAB SHORT 11:00 → LAB 11:00
PROVIDERS: Internal Medicine
DX: N30.00 Acute cystitis without hematuria (principal)
CPT/HCPCS: 80053; 85025; 86140

== ENCOUNTER 2023-03-28 18:27 | Emergency (ER) | payer OTHER ==
[~2023-03-28] VITALS: Ht 193 cm; Wt 113.4 kg
[~2023-03-28 18:27] MED LIST changes: +OXYC5 PO
[2023-03-28 18:57] LABS: BASOPHILS ABSOLUTE AUTO 0.03 K/mm3 (0.00-0.23); BASOPHILS PERCENT AUTO 0 % (0-2); EOSINOPHILS ABSOLUTE AUTO 0.21 K/mm3 (0.00-0.68); EOSINOPHILS PERCENT AUTO 3 % (0-6); Hematocrit 42.7 % (37.0-53.0); Hemoglobin 14.2 g/dL (13.5-17.5); IMMATURE GRAN ABSOLUTE AUTO 0.02 K/mm3 (0.00-0.10); IMMATURE GRAN PERCENT AUTO 0 % (0-1); LYMPHOCYTES ABSOLUTE AUTO 1.72 K/mm3 (0.84-5.20); LYMPHOCYTES PERCENT AUTO 24 % (21-46); MONOCYTES ABSOLUTE AUTO 0.44 K/mm3 (0.16-1.47); MONOCYTES PERCENT AUTO 6 % (4-13); Mean Corpuscular HGB 28.4 pg (26.0-34.0); Mean Corpuscular HGB Conc 33.3 g/dL (31.5-36.5); Mean Corpuscular Volume 85 fL (80-100); Mean Platelet Volume 11.9 fL (9.1-12.4); NEUTROPHILS ABSOLUTE AUTO 4.82 K/mm3 (1.96-9.15); NEUTROPHILS PERCENT AUTO 67 % (41-73); Platelet Count 162 K/mm3 (150-400); RDW Coefficient Variation 14.8 % (11.7-14.2); RDW Standard Deviation 46.6 fL (35.1-46.3); White Blood Cell Count 7.24 K/mm3 (4.00-11.30)
[2023-03-28 19:10] LABS: Albumin, Blood 3.3 g/dL (3.4-5.0); Albumin/Globulin Ratio 0.9 (0.8-1.8); Bilirubin, Total 0.2 mg/dL (0.1-1.0); Bun/Creatinine Ratio 24.7 (12.0-20.0); Calcium, Blood 8.4 mg/dL (8.5-10.1); Creatinine, Blood 0.61 mg/dL (0.60-1.20); Globulin, Blood 3.6 g/dL (2.2-4.0); Total Protein, Blood 6.9 g/dL (6.4-8.2)
[2023-03-28 20:45] VITALS: BP 113/67
== END 2023-03-28 21:05 | disposition home or self-care (01) ==
LOC: ER 18:27
PROVIDERS: Emergency Medicine
DX: R10.9 Unspecified abdominal pain (principal); B96.89 Other specified bacterial agents as the cause of diseases classified elsewhere; Z88.0 Allergy status to penicillin; Z88.2 Allergy status to sulfonamides; Z88.8 Allergy status to other drugs, medicaments and biological substances; Z79.02 Long term (current) use of antithrombotics/antiplatelets; Z79.899 Other long term (current) drug therapy; Z87.891 Personal history of nicotine dependence
CPT/HCPCS: 80053; 83605; 85025; 99284

== ENCOUNTER 2023-04-12 13:34 | Emergency (ER) | payer OTHER ==
[~2023-04-12] VITALS: Ht 180.3 cm; Wt 136.1 kg
[2023-04-12 14:52] VITALS: BP 110/57
== END 2023-04-12 16:40 | disposition home or self-care (01) ==
LOC: ER 13:34
DX: T83.83XA Hemorrhage due to genitourinary prosthetic devices, implants and grafts, initial encounter (principal); Z88.0 Allergy status to penicillin; Z88.8 Allergy status to other drugs, medicaments and biological substances; Z88.2 Allergy status to sulfonamides; Z79.01 Long term (current) use of anticoagulants; Z87.891 Personal history of nicotine dependence; X58.XXXA Exposure to other specified factors, initial encounter
CPT/HCPCS: 99283

== ENCOUNTER 2023-04-15 14:57 | Inpatient (IN) | payer OTHER ==
[~2023-04-15] VITALS: Ht 180.3 cm; Wt 113.0 kg
[~2023-04-15 14:57] MED LIST changes: -GENTAMICIN 40 MG/ML UR; +GENTAMICIN BLADIN; -GLUCOSAMINE CHONDROI PO; +GLUCOSAMINE-CH1 EA48 PO
[2023-04-15 16:21] LABS: BASOPHILS ABSOLUTE AUTO 0.02 K/mm3 (0.00-0.23); BASOPHILS PERCENT AUTO 0 % (0-2); EOSINOPHILS ABSOLUTE AUTO 0.06 K/mm3 (0.00-0.68); EOSINOPHILS PERCENT AUTO 0 % (0-6); Hematocrit 49.7 % (37.0-53.0); Hemoglobin 16.5 g/dL (13.5-17.5); IMMATURE GRAN ABSOLUTE AUTO 0.07 K/mm3 (0.00-0.10); IMMATURE GRAN PERCENT AUTO 1 % (0-1); LYMPHOCYTES ABSOLUTE AUTO 0.83 K/mm3 (0.84-5.20); LYMPHOCYTES PERCENT AUTO 6 % (21-46); MONOCYTES ABSOLUTE AUTO 0.63 K/mm3 (0.16-1.47); MONOCYTES PERCENT AUTO 4 % (4-13); Mean Corpuscular HGB 28.3 pg (26.0-34.0); Mean Corpuscular HGB Conc 33.2 g/dL (31.5-36.5); Mean Corpuscular Volume 85 fL (80-100); Mean Platelet Volume 11.1 fL (9.1-12.4); NEUTROPHILS ABSOLUTE AUTO 13.08 K/mm3 (1.96-9.15); NEUTROPHILS PERCENT AUTO 89 % (41-73); Platelet Count 197 K/mm3 (150-400); RDW Coefficient Variation 15.1 % (11.7-14.2); RDW Standard Deviation 46.9 fL (35.1-46.3); Red Blood Cell Count 5.84 M/mm3 (4.30-5.90); White Blood Cell Count 14.69 K/mm3 (4.00-11.30)
[2023-04-15 16:22] LABS: Source, Urine Suprapubic Cath
[2023-04-15 16:34] LABS: Albumin, Blood 4.1 g/dL (3.4-5.0); Bilirubin, Total 0.7 mg/dL (0.1-1.0); Bun/Creatinine Ratio 27.9 (12.0-20.0); Calcium, Blood 9.5 mg/dL (8.5-10.1); Creatinine, Blood 0.57 mg/dL (0.60-1.20); Globulin, Blood 4.2 g/dL (2.2-4.0); Potassium, Blood 4.2 mmol/L (3.5-5.5); Total Protein, Blood 8.3 g/dL (6.4-8.2)
[2023-04-15 16:39] LABS: Bilirubin, Urine Neg (Neg); Blood, Urine 4+ (Neg); Color, Urine Yellow (P-Yellow); Glucose Qualitative, Urine Neg (Neg); Ketones, Urine Neg (Neg); Leukocyte Esterase, Urine 2+ (Neg); Nitrite, Urine Pos (Neg); Protein, Urine 2+ (Neg); Urobilinogen, Urine NORM (Normal)
[2023-04-15 16:41] LABS: Appearance, Urine Hazy (Clear)
[2023-04-15 16:52] LABS: Bacteria Mod /hpf; White Blood Cells, Urine 25-50 /hpf (0-5)
[2023-04-15 16:53] LABS: Squamous Epithelial Cells Rare /hpf (Few)
[2023-04-15 17:48] LABS: International Normalized Ratio 1.23; Prothrombin Time Results 12.8 Sec (9.7-11.5)
[2023-04-15 19:10] LABS: Influenza A, PCR NEGATIVE (NEGATIVE); Influenza B, PCR NEGATIVE (NEGATIVE); Resp Syncytial Virus, PCR NEGATIVE (NEGATIVE); SARS-Cov-2 (COVID-19) PCR, MMC NEGATIVE (NEGATIVE)
[2023-04-15 22:00] VITALS: BP 110/80
[2023-04-15 23:11] VITALS: BP 123/71
--- NOTE | 2023-04-15 23:22 | NUR ---
ASSUMPTION OF CARE THIS RN ASSUMED CARE OF PT AT 2144, REPORT FROM ED RN, ADOLPH. PT ARRIVED VIA ER GURNEY ON RA. PT TRANSFERRED TO PCU HOSPITAL BED VIA SLIDE SHEET AND MAX ASSIST. PT DENIES CP OR PRESSURE. DENIES SOB, DIFFICULTY BREATHING. PT HOT TO THE TOUCH, TEMP 99.5. TYLENOL ADMINSTERED PER EMAR. ABX STARTED PER EMAR AND OTHER PO MEDS ADMINISTERED PER EMAR. PT REPORTS "STOMACH AND BACK PAIN, SPASMS". PAIN RATED 5/10, MEDICATION PER EMAR. PT HAVING CHILLS AND SHAKES. 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 PT'S SKIN FREE OF BREAKDOWN, EXCEPT MILD EXORIATION ON SCROTUM. PT STATES THIS IS FROM "A MEDICATION THAT DR GAVE TO HIM". PT HAS SUPRAPUBIC CATHETER IN PLACE AND DRAINING TO GRAVITY. OSTOMY IN PLACE WITH SMALL AMOUNT OF SOLID STOOL IN BAG. VS; HR ST AT 122, BP 110/80, SP02 96% ON RA, RR 20. RT IN TO SET UP BIPAP UP PT HOME BIPAP SETTINGS. PT CURRENTLY RESTING, ON BIPAP. CALL LIGHT IN REACH. SISTER AT BEDSIDE SHORTLY AFTER TRANSFER UNTIL AROUND 2300.
[2023-04-16] VITALS (7 sets, daily range): BP systolic 81–146; BP diastolic 43–83
[2023-04-16 04:03] LABS: BASOPHILS ABSOLUTE AUTO 0.04 K/mm3 (0.00-0.23); BASOPHILS PERCENT AUTO 0 % (0-2); EOSINOPHILS PERCENT AUTO 0 % (0-6); Hematocrit 42.1 % (37.0-53.0); Hemoglobin 13.9 g/dL (13.5-17.5); IMMATURE GRAN PERCENT AUTO 1 % (0-1); LYMPHOCYTES ABSOLUTE AUTO 1.35 K/mm3 (0.84-5.20); LYMPHOCYTES PERCENT AUTO 8 % (21-46); MONOCYTES ABSOLUTE AUTO 0.92 K/mm3 (0.16-1.47); MONOCYTES PERCENT AUTO 6 % (4-13); Mean Corpuscular HGB 28.3 pg (26.0-34.0); Mean Corpuscular Volume 86 fL (80-100); Mean Platelet Volume 11.2 fL (9.1-12.4); NEUTROPHILS ABSOLUTE AUTO 14.28 K/mm3 (1.96-9.15); NEUTROPHILS PERCENT AUTO 86 % (41-73); Platelet Count 171 K/mm3 (150-400); RDW Coefficient Variation 15.5 % (11.7-14.2); RDW Standard Deviation 48.7 fL (35.1-46.3); Red Blood Cell Count 4.91 M/mm3 (4.30-5.90); White Blood Cell Count 16.69 K/mm3 (4.00-11.30)
[2023-04-16 04:46] LABS: Albumin, Blood 3.1 g/dL (3.4-5.0); Albumin/Globulin Ratio 0.9 (0.8-1.8); Bilirubin, Total 0.6 mg/dL (0.1-1.0); Calcium, Blood 8.7 mg/dL (8.5-10.1); Creatinine, Blood 0.71 mg/dL (0.60-1.20); Globulin, Blood 3.5 g/dL (2.2-4.0); Potassium, Blood 3.5 mmol/L (3.5-5.5); Total Protein, Blood 6.6 g/dL (6.4-8.2)
--- NOTE | 2023-04-16 06:32 | NUR ---
SHIFT SUMMARY PT REMAINS A&O X4. VSS; ALTHOUGH PT DID HAVE SOFT SBP IN 80'S EVEN AFTER 1 L BOLUS. RESIDENT NOTIFIED, NEW ORDERS FOR 1 L BOLUS OF LR X1 NOW. BOLUS COMPLETED, BP 102/52 (68). LR INFUSING AT 125 MLS/HR. HR SR/ST; 90'S-100'S. PT ON BIPAP, HE USES BIPAP AT HOME. PT TEMP MAX OF 101.7, LAST RECHECK SHOED TEMP OF 98.2. FOUNTAIN IN PLACE AND DRAINING DARK REHANA URINE, CLOUDY APPEARANCE. OSTOMY IN PLACE, BAG CHANGED THIS SHIFT. OUTPUT IS FORMED AND BROWN IN COLOR. PT REPOSITIONED Q2 OR PRN. PT REPORTS PAIN IN "ABDOMEN, BACK AND NECK". STATES IS "SPASM LIKE" AND RATES 5/10. MEDICATION PER EMAR W/RELIEF. PT CURRENTLY SLEEPING. CALL LIGHT IN REACH. WILL UPDATE ONCOMING RN
--- NOTE | 2023-04-16 09:55 | NUR ---
ASSUMED CARE AT 0700 FROM LENI, PT WAS SLEEPING WITH HIS BLANKET OVER HIS HEAD. IV INFUSING, ANTIBIOTICS GIVEN, PT ASSISTED WITH BREAKFAST BY PCT. PT IS FORGETFUL AND NEEDS REDIRECTING. STATED THIS IS NEW FOR HIM. HE IS NOW EXHIBITING AN ELEV. TEMP. HE IS TAKING IN FLUIDS WITHOUT ASSIST, WITH USE OF RIGHT ARM. ABLE TO COMMUNICATE HIS CONCERNS.
--- NOTE | 2023-04-16 17:24 | NUR ---
CALL PLACED TO FOR PAIN MEDICATION WITH AN UPDATE RELATED TO HIS ELEV. TEMP AND TYLENOL BEING GIVEN.
--- NOTE | 2023-04-16 18:50 | NUR ---
EUSEBIA HAS CONTINUED TO BE UNCOMFORTABLE TODAY, HE HAS COMPLAINED OF BLADDER PAIN AND BEEN MEDICATED PER NOV. HE HAS HAD GOOD URINE OUTPUT, IV FLUIDS CONTINUE @ 125ML/HR. ANTIBIOTICS SCHEDULED. HE HAS BEEN TURNED AND REPOSITIONED Q2 AND PRN. HE REFUSED ORAL CARE, ASKING THAT IT BE DONE AT THE END OF THE DAY. DAMIAN CARE AND SUPRAPUBIC CARE COMPLETED. PT HAS BEEN EATING WELL WITH ASSIST OF LARGE HANDLE SILVERWARE AND HANDLED COFFEE MUGS FOR BEVE- RAGES. HIS URINE OUTPUT HAS BEEN GOOD >1 LITER YELLOW RETURN. OSTOMY SITE CHECKED WITH NO RETURN EACH TIME. POSITIVE BLOOD CULTURES CALLED TO MADE THIS SHIFT AND ORDERS RECEIVED FOR PAIN MEDICATION.
[2023-04-17] VITALS (8 sets, daily range): BP systolic 105–139; BP diastolic 65–78
[2023-04-17 05:19] LABS: BASOPHILS ABSOLUTE AUTO 0.02 K/mm3 (0.00-0.23); BASOPHILS PERCENT AUTO 0 % (0-2); EOSINOPHILS ABSOLUTE AUTO 0.08 K/mm3 (0.00-0.68); EOSINOPHILS PERCENT AUTO 1 % (0-6); Hematocrit 42.6 % (37.0-53.0); Hemoglobin 13.8 g/dL (13.5-17.5); IMMATURE GRAN ABSOLUTE AUTO 0.04 K/mm3 (0.00-0.10); IMMATURE GRAN PERCENT AUTO 0 % (0-1); LYMPHOCYTES ABSOLUTE AUTO 1.41 K/mm3 (0.84-5.20); LYMPHOCYTES PERCENT AUTO 13 % (21-46); MONOCYTES ABSOLUTE AUTO 0.74 K/mm3 (0.16-1.47); MONOCYTES PERCENT AUTO 7 % (4-13); Mean Corpuscular HGB 27.8 pg (26.0-34.0); Mean Corpuscular HGB Conc 32.4 g/dL (31.5-36.5); Mean Corpuscular Volume 86 fL (80-100); Mean Platelet Volume 10.9 fL (9.1-12.4); NEUTROPHILS ABSOLUTE AUTO 8.64 K/mm3 (1.96-9.15); NEUTROPHILS PERCENT AUTO 79 % (41-73); Platelet Count 145 K/mm3 (150-400); RDW Coefficient Variation 15.5 % (11.7-14.2); RDW Standard Deviation 48.8 fL (35.1-46.3); Red Blood Cell Count 4.96 M/mm3 (4.30-5.90); White Blood Cell Count 10.93 K/mm3 (4.00-11.30)
[2023-04-17 06:02] LABS: Bun/Creatinine Ratio 15.7 (12.0-20.0); Calcium, Blood 8.7 mg/dL (8.5-10.1); Creatinine, Blood 0.64 mg/dL (0.60-1.20); Potassium, Blood 3.5 mmol/L (3.5-5.5)
--- NOTE | 2023-04-17 06:13 | NUR ---
SHIFT SUMMARY PT REMAINS A&O X4. VSS; TEMP MAX OF 101.6. TYLENOL ADMINISTERED, ICE PACKS AND COOL RAGS. AROUND 0150; THIS RN NOTED NEW RED RASH ACROSS PT SHOULDERS, BACK AND CHEST. THIS RN NOTIFIED RESIDENT. RESIDENT IN AT BEDSIDE TO SEE PT. PT REPORTS MILD ITCHING. NEW ORDERS FOR BENADRYL, CONCERNS FOR ADVERSE REACTION TO VANCOMYCIN. RN TO NOTIFY IF RASH OCCURS AGAIN AND TO MONITOR FOR THIS. AROUND 0245 THIS RN NOTICED RASH SUBSIDING SOME, BENADRYL STILL ADMINISTERD. PT STILL REPORTS FEELING "CRUMMY BUT FEELING BETTER". PT REPOSITIONED Q2 AND PRN. CATHETER IN PLACE AND DRAINING W/GOOD OUTPUT. OSTOMY IN PLACE W/FORMED, BROWN STOOL. PT DID NOT REST WELL THIS SHIFT, PT RESTLESS. LR INFUSING AT 125 MLS/HR PER EMAR. WILL UPDATE ONCOMING RN.
[2023-04-17 09:16] LABS: Vancomycin, Trough 15.1 ug/mL (5.0-10.0)
--- NOTE | 2023-04-17 14:47 | NUR ---
"Spiritual Care| Pt. request Pt. is awake in bed amd welcomes my visit. Pt. is pleasant but is unsettled by the source and impact of his infection. Listen with empathy and a calming presence. Pt. appears to be disabled at baseline but displays a positive hope-filled spirit. Considered matters of drew and belief and stablished rapport. Prayed with Pt. Pt. verbalized gratitude for the spiritual care visit and welcomed this senior bookkeeper to return."
--- NOTE | 2023-04-17 14:51 | NUR ---
CALLED DR. FRAZIER PT WAS GIVEN A BEDBATH THIS AM, AND ABOUT 1300 A NEW BLISTER WAS NOTICED ON THE SHAFT OF HIS PENIS. THERE IS SOME REDNESS AROUND THE BLISTER, SKIN IS INTACT, AND PT DENIES ANY TENDERNESS. DR. FRAZIER WAS NOTIFIED DUE TO POSSIBLE REACTINS OF VACO. DR. FRAZIER WAS NOT TOO CONCERNED AT THIS TIME AND SAID WE WILL JUST MONITOR IT. NOT FURTHER ORDERS.
--- NOTE | 2023-04-17 17:30 | NUR ---
PT IS A&OX4, CALLS APPROPRIATELY, AND MAKES HIS NEEDS KNOWN. THE PT IS A QUADRAPLEGIC, BUT HAS SOME MOVEMENT IN HIS RIGHT ARM. HE HAS BEEN ON RA TODAY, DENIES SOB, AND SP02 >83%. ON TELE THE PT IS SR 70 S-80 S, AND HE DENIES ANY ANGINA. DURING HIS BED BATH HE STARTED HAVING SOME SPASTICITY AND WAS MEDICATED WITH HIS BACLOFEN. PT DENIES PAIN. VS STABLE. IT WAS CONFIRMED THAT THE PT ESBL IN THE URINE, AND HE WOULD LIKE US TO FAX HIS OUT PT INFECTION CONTROL DR HIS ADMISSION RECORDS. HIS DR. IS DR. MILLER AT [facility]. FAX NUMBER [phone], PHONE NUMBER [phone]. PT DID DEVELOP A BLISTER ON THE SHAFT OF HIS PENIS SINCE THIS AM. NOTIFIED. SEE PREVIOUS NOTE FOR MORE INFORMATION. NO ACUTE EVENTS. PT ASSESSED AND EDUCATED ON FIRE IGNITION RISK, SAFETY, AND RISK OF INJURY.
--- NOTE | 2023-04-17 20:40 | NUR ---
ASSUMPTION OF CARE THIS RN ASSUMED CARE OF PT AT 1900. REPORT FROM MARIO SUAREZ. PT AWAKE IN ROOM, ON CELL PHONE. PT PLEASANT AND HAPPY UPON ENTERING ROOM. PT A&O X4. VSS. RASH NOTED ON SHOULDERS, ARMS AND ACROSS CHEST. DAYSHIFT RN ALSO UPDATED THIS RN ON NEW BLISTER ON PENIAL AREA. SUPRAPUBIC CATHETER IN PLACE AND DRAINING TO GRAVITY; CLEAR YELLOW URINE W/GOOD OUTPUT. OSTOMY IN PLACE, NO OUTPUT AT THIS TIME. PT DENIES ANY NEEDS AT THIS TIME. LR INFUSING AT 125 MLS/HR. CALL LIGHT IN REACH
[2023-04-18 04:30] VITALS: BP 114/66
--- NOTE | 2023-04-18 06:14 | NUR ---
SHIFT SUMMARY PT REMAINS A&O X4. VSS THROUGHOUT SHIFT. PT AFEBRILE THROUGHOUT SHIFT. CATHETER IN PLACE W/GOOD OUTPUT. OSTOMY IN PLACE W/NO OUTPUT THIS SHIFT. PT REPOSITIONED AND TURNED Q2 OR PRN. ABX PER EMAR. LR INFUSING PER EMAR. NO ACUTE CHANGES AND NO CHANGES FROM ASSUMPTION OF CARE NOTE. WILL UPDATE ONCOMING RN
[2023-04-18 07:16] VITALS: BP 133/89
--- NOTE | 2023-04-18 07:56 | NUR ---
Patient awake in bed and is alert and oriented and is able to communicate his needs. He is on BIPAP 14/8 rate 16 and sats >90%. He has ostomy with no output, suprapubic cath with good yellow urine. Groin area has a few blisters that patient states is new. He has JEZ 18ga PowerGlide and is infusing LR at 125 ml/hr and LAC iv flushed and SL'd. He is [facility] him, he is able to feed self. He stated that he wanted to stay another day as he is worried when he was here last time he was discharged to early and came right back.
--- NOTE | 2023-04-18 11:30 | NUR ---
Patient tolerated am meds and breakfast without problems. We changed into a new bariatric bed and changed linen. He remains on RA and sats >90%. His ostomy has no output but gas. Kraft has good yellow urine output. Dr Johnson has been by to assess and will make some changes to medsin a few days, he made him Med no tele. PCT setting him up for lunch. VSS, See EMR.
[2023-04-18 13:14] VITALS: BP 127/84
--- NOTE | 2023-04-18 15:30 | NUR ---
Patient remains awake in bed and alert and oriented. He is able to communicate his needs and wants. He plays on phone and making calls. Family present. LR continues at 125 ml/hr and tolerates well, suprapubic fidelina with good yellow urine output.
[2023-04-18 18:32] VITALS: BP 120/66
--- NOTE | 2023-04-18 18:37 | NUR ---
Patient is sitting up in bed playing with phone. He remains alert and oriented and able to communicate his needs. Family left and we gave bath and linen change. VSS See EMR. Patient has some scrotal edema and fluids were DC'd. He is tolerating Abx well. He ate 100% of dinner after it was cut and set up. No significant changes with patient. He is med status and awaiting transfer,
[2023-04-18 20:57] VITALS: BP 135/90
[2023-04-19 00:30] VITALS: BP 118/74
--- NOTE | 2023-04-19 05:16 | NUR ---
SHIFT SUMMARY A/OX4, BEDREST, PT IS A QUADRIPLEGIC. W/C BOUND AT BASELINE. ABLE TO MAKE NEEDS KNOWN. SPO2 >92% ON HOME CPAP. DENIES CHEST PAIN/PRESSURE. OSTOMY TO LLQ WITH SMALL BROWN FORMED OUTPUT. SUPRAPUBIC CATH WITH MILD REDNESS AT SITE. IV ABX INFUSED PER EMAR. VSS, NO ACUTE CHANGES AT THIS TIME. BED IN LOWEST POSITION WITH CALL LIGHT IN REACH. WILL CONTINUE TO MONITOR AND REPORT TO ONCOMING RN. FIRE AND IGNITION RISK ASSESSED, NONE NOTED, PT EDUCATED ON FIRE SAFETY.
[2023-04-19 05:30] VITALS: BP 133/75
--- NOTE | 2023-04-19 07:15 | NUR ---
ASSUMED CARE: PT RESTING IN BED AT THIS TIME. ON RA, NO TELE. NO ACUTE NEEDS NOTED.
[2023-04-19 07:42] VITALS: BP 141/80
[2023-04-19 15:35] VITALS: BP 137/91; BP 161/114
--- NOTE | 2023-04-19 15:37 | NUR ---
Pt. is awake in bed and welcomes my visit. Pt. is unsettled about the nature of his home health care. Listen with empathy and a calming presence. Pt. has verbalized that he is a man of drew, so we considered matters of drew and belief. 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 Pt. displayed evidence of a solid understanding of his physical challenges as well as a great hope. Prayed with Pt. and Pt. then Prayed for me. Pt. verbalized gratitude for the spiritual care support.
--- NOTE | 2023-04-19 17:41 | NUR ---
SHIFT SUMMARY: PT HAS BEEN RESTING IN BED T/O DAY, Q2 TURNS. PLAN IS FOR CATHETER FLUSHES STARTING TOMORROW. PT IS MEDICAL STATUS, NO TELE. SATTING MID 90S ON RA. NO ACUTE NEEDS AT THIS TIME IGNITION RISK: NO SIGNS OF LIGHTERS, MATCHES, CIGARRETTES AT BEDSIDE T/O SHIFT
[2023-04-19 19:32] VITALS: BP 111/68
--- NOTE | 2023-04-20 04:24 | NUR ---
SHIFT SUMMARY A/OX4, BEDREST, PT IS A QUADRIPLEGIC. W/C BOUND AT BASELINE. ABLE TO MAKE NEEDS KNOWN. SPO2 >92% ON HOME CPAP. DENIES CHEST PAIN/PRESSURE. OSTOMY TO LLQ. SUPRAPUBIC CATH WITH MILD REDNESS AT SITE. IV ABX INFUSED PER EMAR. VSS, NO ACUTE CHANGES AT THIS TIME. BED IN LOWEST POSITION WITH CALL LIGHT IN REACH. WILL CONTINUE TO MONITOR AND REPORT TO ONCOMING RN. FIRE AND IGNITION RISK ASSESSED, NONE NOTED, PT EDUCATED ON FIRE SAFETY.
[2023-04-20 04:35] VITALS: BP 121/81
[2023-04-20 07:37] VITALS: BP 128/79
[2023-04-20 11:41] VITALS: BP 145/88
--- NOTE | 2023-04-20 17:06 | NUR ---
PAtient is lying in bed and alert. He explains about the reoccurance of infections and how frustrating it is to be back in the hospital. 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 We talked about his Jain drew and how it has been an anchor to him and been the greatest piece of sanity and peace in his racing mind. I normalize his feelings and fears, listen empathically and provide recitation of scripture and prayer. Patient continued to respond well and showed signs of greater peace.
--- NOTE | 2023-04-20 17:59 | NUR ---
PT TRANSFERRED TO ROOM 335 VIA BED BY HOSPITAL STAFF. REPORT GIVEN TO MARIO DOSS, INCLUDING ADMINISTRATION OF BLADDER IRRIGATION FLUSHES. PT NOTIFIED FAMILY OF ROOM CHANGES. IGNITION RISK: NO EVIDENCE OF LIGHTERS, MATCHES OR CIGARETTES T/O SHIFT
--- NOTE | 2023-04-20 18:23 | NUR ---
TRANSFER NOTE/SHIFT SUMMARY- PT ALERT AND ORIENTED, INCOMPLETE QUADRIPLEDGIC. PT HERE WITH URO SEPSIS. SUPRAPUBIC CATH REPLACED BY ED MD ON ARRIVAL. PT RECIEVEING BID BLADDER IRRIGATION WITH ANTIBIOTICS. THE ANTIBIOTICS ARE FLUSHED IN THROUGH IRRIGATION LINE AND THEN A FLUSH AFTER, THEN FOUNTAIN IS CAPPED FOR 15 MINUTES, THEN ALLOWED TO DRAIN. STAFF NEED TO MONITOR THE PT FOR SIGNS OF OTOTOXCICITY. PT IS CURRENTLY IN A SPECIALTY BARIATRIC BED, CALL LIGHT IN REACH NO S&S OF DISTRESS AT THIS TIME.
[2023-04-20 21:45] VITALS: BP 186/84
[2023-04-20 22:05] VITALS: BP 113/56
--- NOTE | 2023-04-20 22:25 | NUR ---
MD CALL MR GREGORY TOLERATED 80CC OF THE AMIKACIN SULFATE BLADDER IRRIGATION. HE WAS CONCERNED THAT HE MIGHT HAVE A REACTION TO IT AND IT WAS INFUSED VERY SLOWLY. AFTER 80CC HE C/O FEELING HOT AND HIGH BP AND ASKED ME TO STOP MEDICATION. BP CHECKED IT WAS 196/84. 15 MINUTES AFTER MEDICATION WAS STOPPED PT SAID HE FELT A LOT BETTER. BP RECHECK WAS 113/56. HEART RATE STABLE IN THE 60-70S THROUGHOUT. CALL PLACED TO DR HUANG. NO NEW ORDERS.
--- NOTE | 2023-04-21 01:42 | NUR ---
RN NOTE PT EDUCATED RE IGNITION SOURCES AND RISK FOR INJURY WHEN OXYGEN IS IN USE. PT DENIED SMOKING, DENIED HAVING IGNITION SOURCE, HE VERBALISED UNDERSTANDING. REASSESSED ON Q1-2 HOURLY ROUNDS. PT C/O NEW SYMPTOM OF ITCHYNESS TO LEFT EYELID. GIVEN BENADRYL PO. REPOSITIONED IN BED, BED LOW, CALL LIGHT IN REACH.
--- NOTE | 2023-04-21 04:33 | NUR ---
SHIFT SUMMARY MR GREGORY DID NOT TOLERATE FULL DOSE OF AMIKACIN SULFATE BLADDER IRRIGATION LAST EVENING, C/O FEELING HOT AND BP ELEVATION WHICH RESOLVED 15 MINUTES AFTER MEDICATION DOSE. C/O ITCHINESS TO LEFT EYELID, MEDICATED WITH BENADRYL. FLATUS TO COLOSTOMY. BED LOW, CALL LIGHT IN REACH.
[2023-04-21 04:41] VITALS: BP 92/68
[2023-04-21 07:51] VITALS: BP 109/81
--- NOTE | 2023-04-21 08:33 | NUR ---
pt laying in bed awake, a/ox4, pleasant and coopertive with care, follows commands well, denies pain, states his night was ok, lungs are clear t/o, resp even and unlabored, no cough noted, on r/a, hrr, tele in place, running sr per monitor, see strip, trace edema noted, ppp+1, cap refill <3sec, vs stable afebrile, iv site is power glide to trip site is clear and patent, btx4, abd flat soft nontender, voids via cross cath at this time, skin c/w/d, jerson tong, call light in reach.
[2023-04-21 15:36] VITALS: BP 108/80
--- NOTE | 2023-04-21 18:24 | NUR ---
Pt has had an uneventful day, he did tolerate the bladder irrigation this am with reduced volume, asked for a baclofen once this afternoon, no further changes this shift, call light in reach.
[2023-04-21 20:46] VITALS: BP 117/73
[2023-04-22 04:38] VITALS: BP 91/62
[2023-04-22 05:37] LABS: BASOPHILS ABSOLUTE AUTO 0.03 K/mm3 (0.00-0.23); BASOPHILS PERCENT AUTO 0 % (0-2); EOSINOPHILS ABSOLUTE AUTO 0.35 K/mm3 (0.00-0.68); EOSINOPHILS PERCENT AUTO 4 % (0-6); Hematocrit 43.7 % (37.0-53.0); Hemoglobin 14.2 g/dL (13.5-17.5); IMMATURE GRAN ABSOLUTE AUTO 0.06 K/mm3 (0.00-0.10); IMMATURE GRAN PERCENT AUTO 1 % (0-1); LYMPHOCYTES ABSOLUTE AUTO 2.25 K/mm3 (0.84-5.20); LYMPHOCYTES PERCENT AUTO 24 % (21-46); MONOCYTES ABSOLUTE AUTO 0.59 K/mm3 (0.16-1.47); MONOCYTES PERCENT AUTO 6 % (4-13); Mean Corpuscular HGB 27.9 pg (26.0-34.0); Mean Corpuscular HGB Conc 32.5 g/dL (31.5-36.5); Mean Corpuscular Volume 86 fL (80-100); Mean Platelet Volume 10.7 fL (9.1-12.4); NEUTROPHILS ABSOLUTE AUTO 5.97 K/mm3 (1.96-9.15); NEUTROPHILS PERCENT AUTO 65 % (41-73); Platelet Count 220 K/mm3 (150-400); RDW Coefficient Variation 15.2 % (11.7-14.2); RDW Standard Deviation 47.8 fL (35.1-46.3); Red Blood Cell Count 5.09 M/mm3 (4.30-5.90); White Blood Cell Count 9.25 K/mm3 (4.00-11.30)
[2023-04-22 06:10] LABS: Albumin, Blood 3.2 g/dL (3.4-5.0); Albumin/Globulin Ratio 0.8 (0.8-1.8); Bilirubin, Total 0.4 mg/dL (0.1-1.0); Bun/Creatinine Ratio 32.6 (12.0-20.0); Calcium, Blood 9.4 mg/dL (8.5-10.1); Creatinine, Blood 0.61 mg/dL (0.60-1.20); Globulin, Blood 4.1 g/dL (2.2-4.0); Potassium, Blood 4.1 mmol/L (3.5-5.5); Total Protein, Blood 7.3 g/dL (6.4-8.2)
--- NOTE | 2023-04-22 06:21 | NUR ---
SHIFT SUMMARY PT C/O ITCHINESS THROUGHOUT THE NIGHT, MINIMALLY IMPROVED WITH BENADRYL. PT TOLDERATED ANTIBIOTIC VIA SUPRAPUBIC CATH WITH NO COMPLAINTS. Q1H FIRESAFETY CHECKS COMPLETED.
[2023-04-22 07:34] VITALS: BP 109/76
[2023-04-22 15:47] VITALS: BP 115/74
--- NOTE | 2023-04-22 19:43 | NUR ---
SHIFT SUMMARY: EUSEBIA IS A&OX4. VSS, NO ACUTE EVENTS THIS SHIFT. HE HAS BEEN TURNED AND REPOSITIONED UPON REQUEST. BACLOFEN GIVEN AT THE END OF THE SHIFT FOR MUSCLE SPASMS. POWERGLIDE TO JEZ PATENT, VERY POSITIONAL AND UNRELIABLE FOR BLOOD DRAWS. HE IS TOLERATING PO INTAKE WELL, ABLE TO FEED HIMSELF. SUPRAPUBIC CATHETER IN PLACE WITH MINIMAL LEAKAGE THIS SHIFT. HE IS LYING IN BED WITH THE CALL LIGHT IN REACH. REPORT WAS GIVEN TO LINUX DEVOPS ENGINEER RN.
[2023-04-22 19:44] VITALS: BP 96/74
[2023-04-23 02:39] VITALS: BP 120/68
[2023-04-23 07:52] VITALS: BP 103/68
[2023-04-23 16:03] VITALS: BP 113/70
--- NOTE | 2023-04-23 18:39 | NUR ---
SHIFT SUMMARY: WALLY IS A&OX4. VSS, NO ACUTE EVENTS THIS SHIFT. SOME MILD LEAKING NOTED FROM PT'S SUPAPUBIC CATHETER WHICH PT STATES IS BASELINE. CATHETER DRAINING CLEAR, YELLOW URINE. PT TOLERATING PO INTAKE WELL. PT TURNED AND REPOSITIONED UPON REQUEST, RANGE OF MOTION EXERCISES PERFORMED THIS SHIFT. COLOSTOMY WITH SMALL AMOUNT FORMED, BROWN STOOL. PROTECTIVE BOOTS IN PLACE BILATERAL FEET. PT REQUIRES SET UP ASSISTANCE FOR MEALS, BUT IS ABLE TO FEED SELF. PT IS LYING IN BED WITH THE CALL LIGHT IN REACH. WCTM UNTIL REPORT IS GIVEN TO PHYSICIST NUCLEAR RN.
[2023-04-23 20:07] VITALS: BP 102/64
[2023-04-24 04:20] VITALS: BP 98/68
--- NOTE | 2023-04-24 04:48 | NUR ---
SHIFT SUMMERY. PT RESTING IN BED, PT INTERMITANTLY SLEEPING. PT MEDICATED FOR MUSCLE SPASMS TO LEGS BUT WAS STILL HAVING SPASMS AND REQUESTED ROM TO RELAX LEGS. CALL LIGHT IN REACH. FIRE SAFETY REVIEWED.
[2023-04-24 06:34] LABS: Albumin, Blood 3.5 g/dL (3.4-5.0); Albumin/Globulin Ratio 0.8 (0.8-1.8); Bilirubin, Total 0.4 mg/dL (0.1-1.0); Bun/Creatinine Ratio 34.1 (12.0-20.0); Calcium, Blood 9.6 mg/dL (8.5-10.1); Creatinine, Blood 0.59 mg/dL (0.60-1.20); Globulin, Blood 4.4 g/dL (2.2-4.0); Potassium, Blood 4.1 mmol/L (3.5-5.5); Total Protein, Blood 7.9 g/dL (6.4-8.2)
--- NOTE | 2023-04-24 07:30 | NUR ---
ASSUMED CARE: PT RESTING IN BED, STATES HE FEELS COMFORTABLE AND DOES NOT REQUIRE EXSTINSIVE REPOSITIONING. ASSISTED HIM WITH MOVING HIS ARM AND SHOULDER. ON RA, NO TELE. AWAITING TO HEAR FROM CASE MANAGEMENT REGARDING THE DELIVERY OF HIS ANTIBIOTIC FLUSHES. NO FURTHER NEEDS AT THIS TIME.
[2023-04-24 07:36] VITALS: BP 93/66
[2023-04-24 15:38] VITALS: BP 121/77
--- NOTE | 2023-04-24 16:37 | NUR ---
Upon receiving a request form patient via his RN, I visited him. He immediately vents his frustration about being in the hospital and his longing to go home. He talks about not having his chair in the hosptial and not being able to move and how challenging that is for him. We then talk about positive things that were a huge part of his world for years and how he has traded that in for something even greater now in that he is discovering the deeper meaning of life, relationships and who he truly is. He verbalizes that he is encouraged by this conversation. I provide prayer that also boosts his spirits. I will continue to remain available to patient and family.
--- NOTE | 2023-04-24 17:59 | NUR ---
SHIFT SUMMARY: PT AWAITING MEDICATION DELIVERY AT HOME. FLUSH ADMINSTERED TO FOUNTAIN THIS SHIFT. MEDICATED WITH BACTRIC X1. POSSIBLE DC TOMORROW IF MEDICATIONS CAN BE DELIVERED TO HOME. NO FURTHER NEEDS OR CONCERNS AT THIS TIME.
--- NOTE | 2023-04-24 18:09 | NUR ---
IGNITION RISK: NO EVIDENCE OF MATCHES, LIGHTERS OR CIGARRETTES AT BEDISDE T/O DAY
[2023-04-24 20:27] VITALS: BP 100/66
--- NOTE | 2023-04-25 05:13 | NUR ---
SHIFT SUMMARY ADMITTED FOR UTI/SEPSIS. FULL CODE. CONTACT PRECAUTIONS FOR ESBL IN URINE/BLOOD. IV ANTIB RX ARE SCHEDULED. SUPRAPUBIC CATHETER IN PLACE. COLOSTOMY IN PLACE. POWERGLIDE IN PLACE, PLAN IS TO DC WITH IT FOR 14 DAYS OF ANTIB RX. AWAITING HOME MEDICATIONS TO BE IN PLACE BEFORE HE CAN DC HOME. HE IS A PARAPLEGIC, USES A MOTORIZED WC AT HOME. HOME CAREGIVERS AND FAMILY ARE ALREADY IN PLACE AT HOME FOR HIS CARE. ON RA. Q2 TURNS. HE IS ON XARELTO. FIRE SAFETY AND IGNITION RISK HAS BEEN DISCUSSED AND ASSESSED WITH THIS PT.
[2023-04-25 06:32] VITALS: BP 114/65
[2023-04-25 07:44] VITALS: BP 110/73
--- NOTE | 2023-04-25 10:39 | NUR ---
NOTE PT EXPRESSED THAT HE ISN'T FEELING GOOD. THE LAST TIME HE WAS DISCHARGED, ON THE 4TH, HE FELT THIS WHY WHEN HE GOT HOME. FAMILY BROUGHT HIM BACK TO THE ER WHERE THEY DIDN'T FIND ANYTHING WRONG. VSS. HE REQUESTED TO HAVE HIS LABS DRAWN. DR ALAMO CALLED. ORDER RECEIVED. PENDING PICC LINE PLACMENT FOR HOME ANTIBIOTIC THERAPY. CONTINUE POC.
[2023-04-25 10:47] LABS: BASOPHILS ABSOLUTE AUTO 0.03 K/mm3 (0.00-0.23); BASOPHILS PERCENT AUTO 0 % (0-2); EOSINOPHILS ABSOLUTE AUTO 0.36 K/mm3 (0.00-0.68); EOSINOPHILS PERCENT AUTO 5 % (0-6); Hematocrit 43.1 % (37.0-53.0); IMMATURE GRAN ABSOLUTE AUTO 0.07 K/mm3 (0.00-0.10); IMMATURE GRAN PERCENT AUTO 1 % (0-1); LYMPHOCYTES ABSOLUTE AUTO 1.84 K/mm3 (0.84-5.20); LYMPHOCYTES PERCENT AUTO 25 % (21-46); MONOCYTES ABSOLUTE AUTO 0.72 K/mm3 (0.16-1.47); MONOCYTES PERCENT AUTO 10 % (4-13); Mean Corpuscular HGB 27.9 pg (26.0-34.0); Mean Corpuscular HGB Conc 32.5 g/dL (31.5-36.5); Mean Corpuscular Volume 86 fL (80-100); NEUTROPHILS ABSOLUTE AUTO 4.21 K/mm3 (1.96-9.15); NEUTROPHILS PERCENT AUTO 58 % (41-73); Platelet Count 235 K/mm3 (150-400); RDW Coefficient Variation 15.2 % (11.7-14.2); RDW Standard Deviation 47.8 fL (35.1-46.3); Red Blood Cell Count 5.02 M/mm3 (4.30-5.90); White Blood Cell Count 7.23 K/mm3 (4.00-11.30)
[2023-04-25 11:07] LABS: Albumin, Blood 3.3 g/dL (3.4-5.0); Anion Gap 4 mmol/L (6-16); Blood Urea Nitrogen 21 mg/dL (8-24); Bun/Creatinine Ratio 34.1 (12.0-20.0); CO2, Blood 32 mmol/L (21-32); Calcium, Blood 9.3 mg/dL (8.5-10.1); Chloride, Blood 103 mmol/L (98-108); Creatinine, Blood 0.62 mg/dL (0.60-1.20); Glomerular Filtration Rate 121 (60-); Glucose, Blood 104 mg/dL (70-99); Sodium, Blood 139 mmol/L (136-145)
[2023-04-25 16:52] VITALS: BP 152/90
[2023-04-25 19:48] VITALS: BP 122/86
[2023-04-26 03:43] VITALS: BP 99/67
[2023-04-26 07:19] VITALS: BP 133/70
[2023-04-26] MEDS ORDERED: BACL10 PO (11:46)
[2023-04-26] MEDS ORDERED: ERTAPENEM1 G1 IV (11:47)
[2023-04-26] MEDS ORDERED: Acetaminophen325 M1 PO (11:48)
--- NOTE | 2023-04-26 11:51 | NUR ---
Patient is in d/c process and expresses his concerns and delight about going home. He talks about his family and friends that he hopes to see. We discuss a good spiritual care plan for home. I provide therapeutic listening and prayer. Patient responded well and showed signs of reduced stress.
[2023-04-26] MEDS ORDERED: [UNRECOGNIZED DRUG - OTHER] (11:58)
--- NOTE | 2023-04-26 12:34 | NUR ---
DISCHARGE HOME PT DISCHARGED HOME VIA GURNEY ACCOMPANIED BY EMS. PT ALERT AND COOPERATIVE. CEILING LIFT USED TO TRANSFER. CPAP, CHARGING CORD, GREEN BOOTS, CELL PHONE AND BATH KIT SENT WITH PT. PT CALLING [facility] HE WAS WHEELED DOWN THE BURCH. PICCLINE COVERED WITH STOCKINETTE. DRESSING CD&I. ANTIBIOTIC INFUSED WITHOUT ISSUE. CONTINUE POC.
--- NOTE | 2023-04-26 15:06 | NUR ---
aftAFTER DISCHARGE [facility] CALLED AND REPORTED THAT PT BLADDER IRRIGATION IWAS 250MG PER IRRIGACTION. NOT 50MG THE FAMILY REPORTED. PHARMACY WILL MAKE THE 50MG SOLUTION ORDRED. CONTINUE POC.
== END 2023-04-26 12:26 | disposition home health service (06) | DRG 698 ==
LOC: ER 14:57 → PCU 19:32 → MEDS 19:39 → PCU 22:00 → MEDS 04-20 17:23 → ENPENDDIS 04-26 11:22 → MEDS 04-26 12:26
PROVIDERS: Family Medicine; Internal Medicine; Student in an Organized Health Care Education/Training Program; ADMIT Nurse Practitioner Acute Care
PROC: 3E03329 Introduction of Other Anti-infective into Peripheral Vein, Percutaneous Approach (ICD-10-PCS; principal; 2023-04-15)
PROC: 02HV33Z Insertion of Infusion Device into Superior Vena Cava, Percutaneous Approach (ICD-10-PCS; 2023-04-25)
DX: T83.510A Infection and inflammatory reaction due to cystostomy catheter, initial encounter (principal); A41.51 Sepsis due to Escherichia coli [E. coli]; G92.8 Other toxic encephalopathy; G82.54 Quadriplegia, C5-C7 incomplete; A41.52 Sepsis due to Pseudomonas; A41.81 Sepsis due to Enterococcus; N39.0 Urinary tract infection, site not specified; Z16.12 Extended spectrum beta lactamase (ESBL) resistance; Z20.822 Contact with and (suspected) exposure to COVID-19; K21.9 Gastro-esophageal reflux disease without esophagitis; F32.9 Major depressive disorder, single episode, unspecified; E66.9 Obesity, unspecified; N31.9 Neuromuscular dysfunction of bladder, unspecified; G90.4 Autonomic dysreflexia; Z88.2 Allergy status to sulfonamides; Z88.1 Allergy status to other antibiotic agents; Z88.8 Allergy status to other drugs, medicaments and biological substances; Z79.891 Long term (current) use of opiate analgesic; Z79.899 Other long term (current) drug therapy; Z98.1 Arthrodesis status; Z98.890 Other specified postprocedural states; Z87.442 Personal history of urinary calculi; Z89.421 Acquired absence of other right toe(s); Z93.3 Colostomy status; Z86.010 Personal history of colon polyps; Z86.718 Personal history of other venous thrombosis and embolism; Z79.01 Long term (current) use of anticoagulants; Z68.36 Body mass index [BMI] 36.0-36.9, adult
CPT/HCPCS: 0241U; 36415; 36569; 51705; 80048; 80053; 80069; 80202; 81001; 83605; 83735; 85025; 85610; 87040; 87077; 87086; 87186; 93005; 93010; 93306; 94660; 94760; 94762; 96365-59; 97161; 99284-25; A9270; C1751; C9113; J0278; J1335; J1885; J2185; J2405; J3370; J7030; J7050; J7120

== ENCOUNTER → 2023-05-02 | Outpatient (CLI) | payer OTHER ==
[~2023-05-02] MED LIST changes: +Acetaminophen325 M1 PO; +ERTAPENEM1 G1 IV; +[UNRECOGNIZED DRUG - OTHER]
[2023-05-03 10:06] LABS: BASOPHILS ABSOLUTE AUTO 0.03 K/mm3 (0.00-0.23); BASOPHILS PERCENT AUTO 0 % (0-2); EOSINOPHILS PERCENT AUTO 4 % (0-6); Hematocrit 45.8 % (37.0-53.0); Hemoglobin 14.4 g/dL (13.5-17.5); IMMATURE GRAN ABSOLUTE AUTO 0.01 K/mm3 (0.00-0.10); IMMATURE GRAN PERCENT AUTO 0 % (0-1); LYMPHOCYTES PERCENT AUTO 25 % (21-46); MONOCYTES ABSOLUTE AUTO 0.43 K/mm3 (0.16-1.47); MONOCYTES PERCENT AUTO 6 % (4-13); Mean Corpuscular HGB 27.5 pg (26.0-34.0); Mean Corpuscular HGB Conc 31.4 g/dL (31.5-36.5); Mean Corpuscular Volume 87 fL (80-100); Mean Platelet Volume 12.6 fL (9.1-12.4); NEUTROPHILS ABSOLUTE AUTO 5.01 K/mm3 (1.96-9.15); NEUTROPHILS PERCENT AUTO 65 % (41-73); Platelet Count 199 K/mm3 (150-400); RDW Coefficient Variation 15.3 % (11.7-14.2); RDW Standard Deviation 48.6 fL (35.1-46.3); Red Blood Cell Count 5.24 M/mm3 (4.30-5.90); White Blood Cell Count 7.68 K/mm3 (4.00-11.30)
[2023-05-03 11:13] LABS: Albumin/Globulin Ratio 1.1 (0.8-1.8); Bilirubin, Total 0.5 mg/dL (0.1-1.0); Bun/Creatinine Ratio 38.7 (12.0-20.0); C-REACTIVE PROTEIN, EXT RANGE 1.63 mg/dL (0.000-0.300); Calcium, Blood 9.3 mg/dL (8.5-10.1); Creatinine, Blood 0.52 mg/dL (0.60-1.20); Globulin, Blood 3.8 g/dL (2.2-4.0); Potassium, Blood 3.5 mmol/L (3.5-5.5); Total Protein, Blood 7.8 g/dL (6.4-8.2)
== END | disposition home or self-care (01) ==
LOC: LAB 08:24 → LAB SHORT 08:24
PROVIDERS: Internal Medicine
DX: N39.0 Urinary tract infection, site not specified (principal)
CPT/HCPCS: 80053; 85025; 86140

== ENCOUNTER → 2023-05-09 | Outpatient (CLI) | payer OTHER ==
[2023-05-09 16:04] LABS: BASOPHILS ABSOLUTE AUTO 0.04 K/mm3 (0.00-0.23); BASOPHILS PERCENT AUTO 1 % (0-2); EOSINOPHILS ABSOLUTE AUTO 0.33 K/mm3 (0.00-0.68); EOSINOPHILS PERCENT AUTO 6 % (0-6); Hematocrit 44.5 % (37.0-53.0); Hemoglobin 14.5 g/dL (13.5-17.5); IMMATURE GRAN ABSOLUTE AUTO 0.02 K/mm3 (0.00-0.10); IMMATURE GRAN PERCENT AUTO 0 % (0-1); LYMPHOCYTES ABSOLUTE AUTO 1.65 K/mm3 (0.84-5.20); LYMPHOCYTES PERCENT AUTO 31 % (21-46); MONOCYTES ABSOLUTE AUTO 0.31 K/mm3 (0.16-1.47); MONOCYTES PERCENT AUTO 6 % (4-13); Mean Corpuscular HGB 28.2 pg (26.0-34.0); Mean Corpuscular HGB Conc 32.6 g/dL (31.5-36.5); Mean Corpuscular Volume 86 fL (80-100); Mean Platelet Volume 11.5 fL (9.1-12.4); NEUTROPHILS ABSOLUTE AUTO 2.91 K/mm3 (1.96-9.15); NEUTROPHILS PERCENT AUTO 55 % (41-73); Platelet Count 184 K/mm3 (150-400); RDW Standard Deviation 47.5 fL (35.1-46.3); Red Blood Cell Count 5.15 M/mm3 (4.30-5.90); White Blood Cell Count 5.26 K/mm3 (4.00-11.30)
[2023-05-09 17:36] LABS: C-REACTIVE PROTEIN, EXT RANGE 1.16 mg/dL (0.000-0.300)
[2023-05-09 17:39] LABS: Albumin, Blood 3.7 g/dL (3.4-5.0); Albumin/Globulin Ratio 0.9 (0.8-1.8); Bilirubin, Total 0.4 mg/dL (0.1-1.0); Bun/Creatinine Ratio 26.2 (12.0-20.0); Calcium, Blood 9.2 mg/dL (8.5-10.1); Creatinine, Blood 0.5 mg/dL (0.60-1.20); Potassium, Blood 3.6 mmol/L (3.5-5.5); Total Protein, Blood 7.7 g/dL (6.4-8.2)
== END | disposition home or self-care (01) ==
LOC: LAB SHORT 13:00 → LAB 13:00
PROVIDERS: Internal Medicine
DX: N30.00 Acute cystitis without hematuria (principal); Z79.2 Long term (current) use of antibiotics
CPT/HCPCS: 80053; 85025; 86140

== ENCOUNTER 2023-05-16 22:41 | Emergency (ER) | payer OTHER ==
[~2023-05-16] VITALS: Ht 185.4 cm; Wt 120.2 kg
[2023-05-16 22:45] VITALS: BP 113/101
== END 2023-05-16 22:58 | disposition home or self-care (01) ==
LOC: ER 22:41
DX: T82.594A Other mechanical complication of infusion catheter, initial encounter (principal); Y84.8 Other medical procedures as the cause of abnormal reaction of the patient, or of later complication, without mention of misadventure at the time of the procedure; Z88.2 Allergy status to sulfonamides; Z88.8 Allergy status to other drugs, medicaments and biological substances; Z79.02 Long term (current) use of antithrombotics/antiplatelets; Z79.899 Other long term (current) drug therapy; Z79.01 Long term (current) use of anticoagulants; X58.XXXA Exposure to other specified factors, initial encounter
CPT/HCPCS: 99282; J7050

== ENCOUNTER 2023-05-16 23:35 | Emergency (ER) | payer OTHER ==
[~2023-05-16] VITALS: Ht 182.9 cm; Wt 120.2 kg
[2023-05-16 23:43] VITALS: BP 125/91
== END 2023-05-17 01:57 | disposition home or self-care (01) ==
LOC: ER 23:35
DX: T82.594A Other mechanical complication of infusion catheter, initial encounter (principal); Z88.8 Allergy status to other drugs, medicaments and biological substances; Z88.2 Allergy status to sulfonamides; Z79.01 Long term (current) use of anticoagulants; X58.XXXA Exposure to other specified factors, initial encounter
CPT/HCPCS: 99282; J7050

== ENCOUNTER → 2023-05-16 | Outpatient (CLI) | payer OTHER ==
[2023-05-16 17:34] LABS: BASOPHILS ABSOLUTE AUTO 0.02 K/mm3 (0.00-0.23); BASOPHILS PERCENT AUTO 0 % (0-2); EOSINOPHILS ABSOLUTE AUTO 0.39 K/mm3 (0.00-0.68); EOSINOPHILS PERCENT AUTO 6 % (0-6); Hematocrit 44.5 % (37.0-53.0); Hemoglobin 14.3 g/dL (13.5-17.5); IMMATURE GRAN ABSOLUTE AUTO 0.02 K/mm3 (0.00-0.10); IMMATURE GRAN PERCENT AUTO 0 % (0-1); LYMPHOCYTES ABSOLUTE AUTO 1.71 K/mm3 (0.84-5.20); LYMPHOCYTES PERCENT AUTO 27 % (21-46); MONOCYTES ABSOLUTE AUTO 0.43 K/mm3 (0.16-1.47); MONOCYTES PERCENT AUTO 7 % (4-13); Mean Corpuscular HGB 27.8 pg (26.0-34.0); Mean Corpuscular HGB Conc 32.1 g/dL (31.5-36.5); Mean Corpuscular Volume 86 fL (80-100); Mean Platelet Volume 11.8 fL (9.1-12.4); NEUTROPHILS ABSOLUTE AUTO 3.67 K/mm3 (1.96-9.15); NEUTROPHILS PERCENT AUTO 59 % (41-73); Platelet Count 155 K/mm3 (150-400); RDW Coefficient Variation 15.2 % (11.7-14.2); RDW Standard Deviation 48.1 fL (35.1-46.3); Red Blood Cell Count 5.15 M/mm3 (4.30-5.90); White Blood Cell Count 6.24 K/mm3 (4.00-11.30)
[2023-05-16 19:33] LABS: C-REACTIVE PROTEIN, EXT RANGE 0.761 mg/dL (0.000-0.300)
[2023-05-16 19:51] LABS: Albumin, Blood 3.6 g/dL (3.4-5.0); Albumin/Globulin Ratio 0.9 (0.8-1.8); Bilirubin, Total 0.5 mg/dL (0.1-1.0); Bun/Creatinine Ratio 25.4 (12.0-20.0); Calcium, Blood 9.1 mg/dL (8.5-10.1); Creatinine, Blood 0.59 mg/dL (0.60-1.20); Globulin, Blood 3.9 g/dL (2.2-4.0); Total Protein, Blood 7.5 g/dL (6.4-8.2)
== END | disposition home or self-care (01) ==
LOC: LAB SHORT 16:26 → LAB 16:26
PROVIDERS: Internal Medicine
DX: N39.0 Urinary tract infection, site not specified (principal); B95.2 Enterococcus as the cause of diseases classified elsewhere; B96.5 Pseudomonas (aeruginosa) (mallei) (pseudomallei) as the cause of diseases classified elsewhere
CPT/HCPCS: 80053; 85025; 86140

== ENCOUNTER → 2023-05-23 | Outpatient (CLI) | payer OTHER ==
[2023-05-23 14:08] LABS: BASOPHILS ABSOLUTE AUTO 0.02 K/mm3 (0.00-0.23); BASOPHILS PERCENT AUTO 0 % (0-2); EOSINOPHILS ABSOLUTE AUTO 0.35 K/mm3 (0.00-0.68); EOSINOPHILS PERCENT AUTO 6 % (0-6); Hematocrit 44.7 % (37.0-53.0); Hemoglobin 14.6 g/dL (13.5-17.5); IMMATURE GRAN ABSOLUTE AUTO 0.02 K/mm3 (0.00-0.10); IMMATURE GRAN PERCENT AUTO 0 % (0-1); LYMPHOCYTES PERCENT AUTO 25 % (21-46); MONOCYTES PERCENT AUTO 6 % (4-13); Mean Corpuscular HGB 27.9 pg (26.0-34.0); Mean Corpuscular HGB Conc 32.7 g/dL (31.5-36.5); Mean Corpuscular Volume 85 fL (80-100); Mean Platelet Volume 12.1 fL (9.1-12.4); NEUTROPHILS ABSOLUTE AUTO 3.91 K/mm3 (1.96-9.15); NEUTROPHILS PERCENT AUTO 62 % (41-73); Platelet Count 163 K/mm3 (150-400); RDW Coefficient Variation 15.2 % (11.7-14.2); RDW Standard Deviation 47.7 fL (35.1-46.3); Red Blood Cell Count 5.24 M/mm3 (4.30-5.90)
[2023-05-23 17:10] LABS: Albumin, Blood 3.9 g/dL (3.4-5.0); Bilirubin, Total 0.4 mg/dL (0.1-1.0); Bun/Creatinine Ratio 29.5 (12.0-20.0); C-REACTIVE PROTEIN, EXT RANGE 0.98 mg/dL (0.000-0.300); Calcium, Blood 9.3 mg/dL (8.5-10.1); Creatinine, Blood 0.58 mg/dL (0.60-1.20); Globulin, Blood 3.9 g/dL (2.2-4.0); Potassium, Blood 3.6 mmol/L (3.5-5.5); Total Protein, Blood 7.8 g/dL (6.4-8.2)
== END | disposition home or self-care (01) ==
LOC: LAB SHORT 10:08 → LAB 10:08
PROVIDERS: Internal Medicine
DX: N30.00 Acute cystitis without hematuria (principal); Z79.2 Long term (current) use of antibiotics
CPT/HCPCS: 80053; 85025; 86140

== ENCOUNTER → 2023-06-01 | Outpatient (CLI) | payer OTHER ==
[2023-06-01 19:50] LABS: Appearance, Urine Cloudy (Clear); Bilirubin, Urine Neg (Neg); Blood, Urine 3+ (Neg); Color, Urine Yellow (P-Yellow); Glucose Qualitative, Urine Neg (Neg); Ketones, Urine Neg (Neg); Leukocyte Esterase, Urine 3+ (Neg); Nitrite, Urine Neg (Neg); Protein, Urine 2+ (Neg); Urobilinogen, Urine NORM (Normal)
[2023-06-01 20:02] LABS: Squamous Epithelial Cells Few /hpf (Few); Transitional Epithelial Cells Few /hpf (0-Rare)
[2023-06-01 20:05] LABS: Yeast/Fungi Urine Many /hpf
[2023-06-01 20:06] LABS: Bacteria Mod /hpf
== END | disposition home or self-care (01) ==
LOC: LAB SHORT 18:00 → LAB 18:00
PROVIDERS: Internal Medicine
DX: N10 Acute pyelonephritis (principal)
CPT/HCPCS: 81001; 87077; 87086; 87186

== ENCOUNTER 2023-07-31 01:01 | Inpatient (IN) | payer OTHER ==
[~2023-07-31] VITALS: Ht 185.4 cm; Wt 106.4 kg
[2023-07-31 01:45] LABS: Source, Urine Suprapubic Cath
[2023-07-31 01:49] LABS: Bilirubin, Urine Neg (Neg); Blood, Urine 4+ (Neg); Glucose Qualitative, Urine Neg (Neg); Ketones, Urine Neg (Neg); Leukocyte Esterase, Urine 3+ (Neg); Nitrite, Urine Pos (Neg); Protein, Urine 2+ (Neg); Urobilinogen, Urine NORM (Normal)
[2023-07-31 01:51] LABS: Appearance, Urine Hazy (Clear); Color, Urine Yellow (P-Yellow)
[2023-07-31 02:00] LABS: BASOPHILS ABSOLUTE AUTO 0.03 K/mm3 (0.00-0.23); BASOPHILS PERCENT AUTO 0 % (0-2); EOSINOPHILS ABSOLUTE AUTO 0.13 K/mm3 (0.00-0.68); EOSINOPHILS PERCENT AUTO 1 % (0-6); Hematocrit 48.2 % (37.0-53.0); Hemoglobin 15.5 g/dL (13.5-17.5); IMMATURE GRAN ABSOLUTE AUTO 0.13 K/mm3 (0.00-0.10); IMMATURE GRAN PERCENT AUTO 1 % (0-1); LYMPHOCYTES ABSOLUTE AUTO 0.88 K/mm3 (0.84-5.20); LYMPHOCYTES PERCENT AUTO 6 % (21-46); MONOCYTES ABSOLUTE AUTO 0.69 K/mm3 (0.16-1.47); MONOCYTES PERCENT AUTO 5 % (4-13); Mean Corpuscular HGB 28.1 pg (26.0-34.0); Mean Corpuscular HGB Conc 32.2 g/dL (31.5-36.5); Mean Corpuscular Volume 87 fL (80-100); Mean Platelet Volume 11.7 fL (9.1-12.4); NEUTROPHILS ABSOLUTE AUTO 12.02 K/mm3 (1.96-9.15); NEUTROPHILS PERCENT AUTO 87 % (41-73); Platelet Count 166 K/mm3 (150-400); RDW Coefficient Variation 14.9 % (11.7-14.2); RDW Standard Deviation 47.7 fL (35.1-46.3); Red Blood Cell Count 5.52 M/mm3 (4.30-5.90); White Blood Cell Count 13.88 K/mm3 (4.00-11.30)
[2023-07-31 02:01] LABS: Albumin, Blood 4.1 g/dL (3.4-5.0); Bilirubin, Direct 0.1 mg/dL (0.0-0.3); Bilirubin, Indirect 0.4 mg/dL (0.1-0.7); Bilirubin, Total 0.5 mg/dL (0.1-1.0); Bun/Creatinine Ratio 18.7 (12.0-20.0); Calcium, Blood 9.4 mg/dL (8.5-10.1); Creatinine, Blood 0.7 mg/dL (0.60-1.20); Magnesium, Blood 2.2 mg/dL (1.6-2.4); Phosphorus, Blood 2.8 mg/dL (2.5-4.9); Total Protein, Blood 8.1 g/dL (6.4-8.2)
[2023-07-31 02:02] LABS: Bacteria Mod /hpf; Red Blood Cells, Urine 0-2 /hpf (0-2); White Blood Cells, Urine 50-100 /hpf (0-5); Yeast/Fungi Urine Few /hpf
[2023-07-31 02:03] LABS: Amorphous Mod (0-Heavy); Mucus Light (0-Heavy); Squamous Epithelial Cells Few /hpf (Few)
[2023-07-31 02:06] LABS: International Normalized Ratio 1.07; Prothrombin Time Results 11.2 Sec (9.7-11.5)
[2023-07-31 02:27] LABS: Influenza A, PCR NEGATIVE (NEGATIVE); Influenza B, PCR NEGATIVE (NEGATIVE); Resp Syncytial Virus, PCR NEGATIVE (NEGATIVE); SARS-Cov-2 (COVID-19) PCR, MMC NEGATIVE (NEGATIVE)
[2023-07-31] MEDS ORDERED: C COMPLEX1000 M1 PO (05:19)
[2023-07-31] MEDS ORDERED: BACL10 PO (05:20)
[2023-07-31] MEDS ORDERED: OXYB5 PO (05:21)
[2023-07-31] MEDS ORDERED: XARELTO10 M1 PO (05:22)
[2023-07-31] MEDS ORDERED: THERA-D2000 UNIT PO (05:23)
[2023-07-31 08:44] VITALS: BP 112/58
--- NOTE | 2023-07-31 14:33 | NUR ---
Patient tells me about his the loss of a close friend, his struggle with continuous UTIs and the good family and jew he receives. He shares his disappointment about another hospitalization and how it takes some wind out of his sail. We explore sources of inspiration and ways to remain resilient. i provide therapeutic listening, gentle teen counselor and prayer. Patient responded well and showed signs of being encouraged and elevated in mood.
[2023-07-31 15:18] VITALS: BP 122/82
[2023-07-31] MEDS ORDERED: GLUCOSAMINE CHONDROI PO (18:11)
--- NOTE | 2023-07-31 18:41 | NUR ---
PT IS ALERT AND ORIENTED X4. ABLE TO MAKE NEEDS KNOWN. TREATED FEVERS AND PAIN PER EMAR. RECIEVING FLUIDS. PT STATES THAT HE FEELS SLIGHTLY BETTER THAN THIS AFTER NOON. PLS SEE PREVIOUS NOTES. BEDREST. CALL LIGHT IS IN REACH.
[2023-07-31 19:38] VITALS: BP 86/55
[2023-07-31 21:46] VITALS: BP 92/54
[2023-07-31 23:25] VITALS: BP 94/71
[2023-07-31 23:27] VITALS: BP 104/58
--- NOTE | 2023-08-01 04:22 | NUR ---
SHIFT SUMMARY PATIENT A/0x4, PLEASANT/COOPERATIVE. PAIN MANAGED PER NOV, WITHOUT C/O PAIN NOR DISCOMFORT AT TIME OF ASSESSMENT. BLOOD CULTURES POSITIVE, BP CONTINUES TO BE SOFT, AFEBRILE, PATIENT STATES FEELING BETTER. ASLEEP OFF AND ON THROUGHOUT SHIFT, LISTENING TO MUSIC ON HIS PHONE. NO ACUTE CHANGES NOTED OVERNIGHT. BED LOCKED, CALL LIGHT WITHIN REACH.
[2023-08-01 04:58] VITALS: BP 116/79
[2023-08-01 07:19] LABS: BASOPHILS ABSOLUTE AUTO 0.02 K/mm3 (0.00-0.23); BASOPHILS PERCENT AUTO 0 % (0-2); EOSINOPHILS ABSOLUTE AUTO 0.05 K/mm3 (0.00-0.68); EOSINOPHILS PERCENT AUTO 1 % (0-6); Hematocrit 43.3 % (37.0-53.0); Hemoglobin 13.8 g/dL (13.5-17.5); IMMATURE GRAN ABSOLUTE AUTO 0.04 K/mm3 (0.00-0.10); IMMATURE GRAN PERCENT AUTO 0 % (0-1); LYMPHOCYTES ABSOLUTE AUTO 0.88 K/mm3 (0.84-5.20); LYMPHOCYTES PERCENT AUTO 8 % (21-46); MONOCYTES ABSOLUTE AUTO 0.65 K/mm3 (0.16-1.47); MONOCYTES PERCENT AUTO 6 % (4-13); Mean Corpuscular HGB 28.1 pg (26.0-34.0); Mean Corpuscular HGB Conc 31.9 g/dL (31.5-36.5); Mean Corpuscular Volume 88 fL (80-100); Mean Platelet Volume 11.7 fL (9.1-12.4); NEUTROPHILS PERCENT AUTO 85 % (41-73); Platelet Count 118 K/mm3 (150-400); RDW Coefficient Variation 15.9 % (11.7-14.2); RDW Standard Deviation 51.8 fL (35.1-46.3); Red Blood Cell Count 4.91 M/mm3 (4.30-5.90); White Blood Cell Count 10.84 K/mm3 (4.00-11.30)
[2023-08-01 07:53] VITALS: BP 119/75
[2023-08-01 07:54] LABS: Albumin, Blood 3.3 g/dL (3.4-5.0); Anion Gap 6 mmol/L (6-16); Blood Urea Nitrogen 12 mg/dL (8-24); Bun/Creatinine Ratio 17.6 (12.0-20.0); CO2, Blood 27 mmol/L (21-32); Calcium, Blood 8.8 mg/dL (8.5-10.1); Chloride, Blood 109 mmol/L (98-108); Creatinine, Blood 0.68 mg/dL (0.60-1.20); Glomerular Filtration Rate 118 (60-); Glucose, Blood 123 mg/dL (70-99); Phosphorus, Blood 2.2 mg/dL (2.5-4.9); Potassium, Blood 3.7 mmol/L (3.5-5.5); Sodium, Blood 142 mmol/L (136-145)
[2023-08-01 15:08] VITALS: BP 106/66
--- NOTE | 2023-08-01 15:54 | NUR ---
CALL MADE TO DR. BOTELLO NOTIFYING OF FEVERS THIS AFTERNOON NOTIFIED HIM OF TREATMENT FOR FEVERS: TYLENOL/ADVIL, ICE PACKS, AND FAN. AND MOST RECENT TEMP. NO NEW ORDERS AT THIS TIME.
--- NOTE | 2023-08-01 18:27 | NUR ---
SHIFT SUMMARY: PT IS A 42 YR OLD MALE HERE FOR UROSEPSIS WITH PRESENCE OF SUPAPUBIC CATHETHER. HE IS INCOMPLETE QUADRIPLEGIC. ALERT AND ORIENTED X4 AND CALLS STAFF APPROPRIATELY FOR NEEDS. HE IS BEING TREATED WITH IV AND ORAL ANTIBIOTICS. IV ANTIBIOTIC TREATMENT CHANGED DUE TO PREVIOUS MEDICATION RESISTANT TO BACTERIA ON CULTURE. STARTED ON LEVAQUIN, PATIENT STATES THAT HE DOESN'T RECALL HAVING AN ALLERGY TO LEVAQUIN AND STATED THAT HE WOULD LIKE TO TAKE THE MEDICATION. IV MED STARTED AND NO SIGNS OR SYMPTOMS OF ALLERGIC OR ADVERSE REACTION. HE HAS BEEN FEBRILE THOUGHOUT THE SHIFT. WITH A CURRENT TEMP OF 99.4. PATIENT IS IN BED, CALL LIGHT WITHIN REACH, EATING DINNER, NO SIGNS OR SYMPTOMS OF DISTRESS. PLAN OF CARE ONGOING.
[2023-08-01 19:12] VITALS: BP 118/79
[2023-08-02 03:36] VITALS: BP 103/60
[2023-08-02 05:33] LABS: BASOPHILS ABSOLUTE AUTO 0.02 K/mm3 (0.00-0.23); BASOPHILS PERCENT AUTO 0 % (0-2); EOSINOPHILS ABSOLUTE AUTO 0.19 K/mm3 (0.00-0.68); EOSINOPHILS PERCENT AUTO 2 % (0-6); Hematocrit 40.3 % (37.0-53.0); Hemoglobin 12.9 g/dL (13.5-17.5); IMMATURE GRAN ABSOLUTE AUTO 0.03 K/mm3 (0.00-0.10); IMMATURE GRAN PERCENT AUTO 0 % (0-1); LYMPHOCYTES ABSOLUTE AUTO 1.32 K/mm3 (0.84-5.20); LYMPHOCYTES PERCENT AUTO 15 % (21-46); MONOCYTES ABSOLUTE AUTO 0.74 K/mm3 (0.16-1.47); MONOCYTES PERCENT AUTO 9 % (4-13); Mean Corpuscular HGB 27.9 pg (26.0-34.0); Mean Corpuscular Volume 87 fL (80-100); Mean Platelet Volume 11.8 fL (9.1-12.4); NEUTROPHILS ABSOLUTE AUTO 6.26 K/mm3 (1.96-9.15); NEUTROPHILS PERCENT AUTO 73 % (41-73); Platelet Count 113 K/mm3 (150-400); RDW Coefficient Variation 15.7 % (11.7-14.2); RDW Standard Deviation 49.9 fL (35.1-46.3); Red Blood Cell Count 4.62 M/mm3 (4.30-5.90); White Blood Cell Count 8.56 K/mm3 (4.00-11.30)
[2023-08-02 06:16] LABS: Calcium, Blood 9.2 mg/dL (8.5-10.1); Creatinine, Blood 0.74 mg/dL (0.60-1.20); Potassium, Blood 3.7 mmol/L (3.5-5.5)
--- NOTE | 2023-08-02 06:48 | NUR ---
SHIFT SUMMARY PT LAYING IN BED DURING BEDSIDE REPORT, FAMILY AT BEDSIDE, BHARATHI INFUSING PT TOOK HS MEDICATIONS WITHOUT PROBLEMS, PT SUPRAPUBIC FOUNTAIN LEAKING WHEN REPOSITIONING PT -- PT REPORTED IT WILL LEAK IF HE IS LAYING TOO FLAT ON HIS BACK - REPOSITIONED, CLAMPED FOUNTAIN PER ORDER AND INSERTED THE MEDICATION THROUGH THE PORT-- PT TOLERATED WELL-- PT REPOSITIONED T/O NIGHT, BED BATH DONE, PT TOLERATED WELL -- BED LOW POSITION, CALL LIGHT WITHIN REACH
[2023-08-02 07:57] VITALS: BP 112/72
[2023-08-02 15:28] VITALS: BP 126/84
--- NOTE | 2023-08-02 19:39 | NUR ---
SHIFT SUMMARY NO ACUTE EVENTS DURING SHIFT. PATIENT PLEASANT AND COOPERATIVE WITH CARE. NO COMPLAINTS OF ABDOMINAL PAIN OR SPASMS TODAY. MEDICATED FOR HEADACHE WITH TYLENOL PER EMAR WITH FULL RELIEF. PASSIVE RANGE OF MOTION PROVIDED TO PATIENT.
[2023-08-02 20:16] VITALS: BP 105/70
--- NOTE | 2023-08-03 04:16 | NUR ---
SHIFT SUMMARY WALLY WAS ALERT AND FULLY ORIENTED AT THE START OF THE SHIFT, PLEASANT AND COOPERATIVE WITH CARE. SUPRAPUBIC CATHER CARE PROVIDED, DRAINING CLEAR YELLOW URINE TO GRAVITY. COLOSTOMY CARE PROVIDED, BAG CHANGED. PT RECIEVED A BED BATH THIS SHIFT. BLANCHABLE REDNESS NOTED ACROSS PTS LOW BACK W/O SKIN BREAKDOWN. PT RESTING IN BED WITH BIPAP IN PLACE, AND CALL LIGHT IN REACH. NO ACUTE EVENTS THIS SHIFT.
[2023-08-03 04:28] VITALS: BP 111/70
[2023-08-03 07:54] VITALS: BP 135/86
[2023-08-03 10:54] LABS: BASOPHILS ABSOLUTE AUTO 0.01 K/mm3 (0.00-0.23); BASOPHILS PERCENT AUTO 0 % (0-2); Calcium, Blood 9.4 mg/dL (8.5-10.1); Creatinine, Blood 0.67 mg/dL (0.60-1.20); EOSINOPHILS ABSOLUTE AUTO 0.12 K/mm3 (0.00-0.68); EOSINOPHILS PERCENT AUTO 2 % (0-6); Hematocrit 41.8 % (37.0-53.0); Hemoglobin 13.6 g/dL (13.5-17.5); IMMATURE GRAN ABSOLUTE AUTO 0.01 K/mm3 (0.00-0.10); IMMATURE GRAN PERCENT AUTO 0 % (0-1); LYMPHOCYTES ABSOLUTE AUTO 1.16 K/mm3 (0.84-5.20); LYMPHOCYTES PERCENT AUTO 20 % (21-46); MONOCYTES ABSOLUTE AUTO 0.48 K/mm3 (0.16-1.47); MONOCYTES PERCENT AUTO 8 % (4-13); Mean Corpuscular HGB 28.2 pg (26.0-34.0); Mean Corpuscular HGB Conc 32.5 g/dL (31.5-36.5); Mean Corpuscular Volume 87 fL (80-100); Mean Platelet Volume 11.4 fL (9.1-12.4); NEUTROPHILS PERCENT AUTO 69 % (41-73); Platelet Count 173 K/mm3 (150-400); Potassium, Blood 3.1 mmol/L (3.5-5.5); RDW Coefficient Variation 15.4 % (11.7-14.2); RDW Standard Deviation 48.7 fL (35.1-46.3); Red Blood Cell Count 4.82 M/mm3 (4.30-5.90); White Blood Cell Count 5.78 K/mm3 (4.00-11.30)
[2023-08-03 15:20] VITALS: BP 115/72
--- NOTE | 2023-08-03 16:29 | NUR ---
Patient tells me about his needs for better transportation, and a better wheelchair. He talks about his struggles to maintain a positive outlook and not get pulled down by the limitations and obstacles of life. We explore resources for reslience and mental/emotional/spiritual health and patient's spiritual beliefs. I encourage self care and provide prayer and recitation of scripture. Patientresponed well and showed signs of increase hope.
--- NOTE | 2023-08-03 18:38 | NUR ---
SHIFT SUMMARY: PT A&O X4. PLEASANT AND COOPERATIVE WITH CARE. NO ACUTE CHANGES WITH PT THIS SHIFT. OSTOMY BURPED AND EMPTIED NEEDED. AMIKACIN IRRIGATION COMPLETED THE FULL 2 HOURS W/O COMPLICATIONS. CATHETER SITE CLEANED AND REDRESSED POST IRRIGATION. DRAINING CLEAR YELLOW URINE TO GRAVITY. STOMA PINK AND MOIST. CALL LIGHT IN REACH. BED IN LOWEST POSITION.
[2023-08-03 19:23] VITALS: BP 107/69
[2023-08-04 03:19] VITALS: BP 107/70
--- NOTE | 2023-08-04 04:25 | NUR ---
SHIFT SUMMARY WALLY WAS ALERT AND FULLY ORIENTED THIS SHIFT AND COOPERATIVE WITH CARE. NO ACUTE EVENTS TONIGHT. SUPRAPUBIC CATHETER CLEANED AND REDRESSED, OSTOMY BAG CHANGED AND STOMA CLEANED. PT HAD A BOUT OF NAUSEA AFTER EVENING MEDS WERE GIVEN, HOSPITALIST WAS CALLED AND ZOFRAN WAS ORDERED/ ADMINISTERED. PT RESTING IN BED AT A LOW POSITION WITH THE CALL LIGHT IN REACH.
[2023-08-04 07:41] VITALS: BP 114/71
[2023-08-04 15:16] VITALS: BP 119/71
--- NOTE | 2023-08-04 18:15 | NUR ---
SHIFT SUMMARY A&O X 4, VSS. IS PLEASANT & COOPERATIVE WITH ALL CARE. SUPRAPUBIC CATH & COLOSTOMY INTACT & PATENT. NO ACUTE CHANGES THIS SHIFT. PLAN IS FOR PT TO BE SENT HOME WITH SISTER. DWAIN MED REC DONE ALREADY AND MED SCRIPTS FAXED TO [facility] IN [place] PER PT REQUEST. PT'S SISTER PICKED MEDS UP TODAY. PT IS LIKELY TO BE DC'D SAT.
[2023-08-04 19:24] VITALS: BP 94/59
--- NOTE | 2023-08-05 04:38 | NUR ---
SHIFT SUMMARY NO ACUTE CHANGES OVER NIGHT. PATIENT REQUESTED FOR MILK OF MAG HE HAS NOT HAD A REAL BM IN 4DAYS. CALLED-ORDER MILK OF MAG BID. PATIENT HAS SUPRAPUBIC CATHETER THAT IS PATENT AND DRAINING TO GRAVITY. PATIENT IS ALERT AND ABLE TO MAKE HIS NEEDS KNOWN. CALL LIGHT IS IN REACH. NO S/S OF DISTRESS NOTED AT THIS TIME.
[2023-08-05 05:51] VITALS: BP 98/64
[2023-08-05 07:54] VITALS: BP 114/75
[2023-08-05] MEDS ORDERED: LEVO750 PO (08:08)
--- NOTE | 2023-08-05 11:46 | NUR ---
BLADDER IRRIGATION BALDDER IRRIAGATION TUB UNCLAMPED AT 1020. CONTINUE POC.
--- NOTE | 2023-08-05 13:34 | NUR ---
DISCAHRGE PT DISCHARGED VIA GURNEY TRANSPORT HOME. STEVEO NGINGS PACKED AND SENT WITH PT. IV RIGHT AC REMOVED WITH CANNULA INTACT. PRESSURE DRESSING APPLIED. REMOVED PRIOR TO TRANSPORT. CONTINUE POC.
== END 2023-08-05 13:33 | disposition home or self-care (01) | DRG 698 ==
LOC: ER 01:01 → MEDS 01:02
PROVIDERS: Internal Medicine; Student in an Organized Health Care Education/Training Program; ADMIT Internal Medicine
DX: T83.518A Infection and inflammatory reaction due to other urinary catheter, initial encounter (principal); A41.9 Sepsis, unspecified organism; R65.20 Severe sepsis without septic shock; G82.54 Quadriplegia, C5-C7 incomplete; N39.0 Urinary tract infection, site not specified; E87.21 Acute metabolic acidosis; K21.9 Gastro-esophageal reflux disease without esophagitis; K59.09 Other constipation; G90.4 Autonomic dysreflexia; B96.89 Other specified bacterial agents as the cause of diseases classified elsewhere; R25.8 Other abnormal involuntary movements; B96.20 Unspecified Escherichia coli [E. coli] as the cause of diseases classified elsewhere; F32.9 Major depressive disorder, single episode, unspecified; Z11.52 Encounter for screening for COVID-19; Z79.01 Long term (current) use of anticoagulants; Z88.2 Allergy status to sulfonamides; Z88.8 Allergy status to other drugs, medicaments and biological substances; Z87.01 Personal history of pneumonia (recurrent); Z98.1 Arthrodesis status; Z98.890 Other specified postprocedural states; Y84.6 Urinary catheterization as the cause of abnormal reaction of the patient, or of later complication, without mention of misadventure at the time of the procedure; Z89.421 Acquired absence of other right toe(s); Z93.3 Colostomy status; Z79.899 Other long term (current) drug therapy
CPT/HCPCS: 0241U; 36415; 80048; 80053; 80069; 81001; 82248; 83605; 83735; 84100; 85025; 85610; 85730; 87040; 87077; 87086; 87186; 93005; 93010; 94660; 94762; 96361; 96365; 96366; 96367; 96375; 99285-25; A9270; C9113; J0278; J1956; J2185; J2405; J3010; J3370; J7030; J7050

== ENCOUNTER 2025-08-05 12:54 | Day surgery (SDC) | payer OTHER ==
[~2025-08-05 12:54] MED LIST changes: +AMIKACIN IR; +AMIKACIN S IR; +COLACE100 MG PO; +ERTAPENEM1 G6 IV; +GLUCOSAMINE CHONDROI PO; +GLUCOSAMINE PO; +GUAIFENESIN ER600 MG PO; +LEVO750 PO; +OSEL75CA PO; +THERA-D2000 UNIT PO; +VISBIOME 112.51 EACH PO; +XARELTO10 M1 PO
[2025-08-05] MEDS ORDERED: Ertapenem Sodium 1,000 MG in NS 50 ML IV SCH ×2 (14:25→14:30)
== END 2025-08-05 15:27 | disposition home or self-care (01) ==
LOC: ATC 12:54
DX: N39.0 Urinary tract infection, site not specified (principal); N31.9 Neuromuscular dysfunction of bladder, unspecified; Z88.1 Allergy status to other antibiotic agents; Z88.2 Allergy status to sulfonamides; Z88.8 Allergy status to other drugs, medicaments and biological substances
CPT/HCPCS: 96365; J1335

== ENCOUNTER 2025-08-06 07:23 | Day surgery (SDC) | payer OTHER ==
[2025-08-06] MEDS ORDERED: Ertapenem Sodium 1,000 MG in NS 50 ML IV SCH (07:30)
[2025-08-06 14:16] VITALS: BP 99/58
== END 2025-08-06 14:32 | disposition home or self-care (01) ==
LOC: ATC 07:23
DX: N39.0 Urinary tract infection, site not specified (principal); N31.9 Neuromuscular dysfunction of bladder, unspecified; G82.50 Quadriplegia, unspecified; Z88.1 Allergy status to other antibiotic agents; Z88.2 Allergy status to sulfonamides; Z88.8 Allergy status to other drugs, medicaments and biological substances; Z96.0 Presence of urogenital implants
CPT/HCPCS: 96365; J1335

== ENCOUNTER 2025-08-07 00:58 | Day surgery (SDC) | payer OTHER ==
[2025-08-07] MEDS ORDERED: Ertapenem Sodium 1,000 MG in NS 50 ML IV SCH (01:00)
[2025-08-07 14:21] VITALS: BP 98/78
== END 2025-08-07 14:48 | disposition home or self-care (01) ==
LOC: ATC 00:58
DX: N39.0 Urinary tract infection, site not specified (principal); B96.20 Unspecified Escherichia coli [E. coli] as the cause of diseases classified elsewhere; N31.9 Neuromuscular dysfunction of bladder, unspecified; Z79.01 Long term (current) use of anticoagulants; Z79.899 Other long term (current) drug therapy; Z88.1 Allergy status to other antibiotic agents; Z88.2 Allergy status to sulfonamides; Z88.8 Allergy status to other drugs, medicaments and biological substances; Z16.11 Resistance to penicillins; Z16.12 Extended spectrum beta lactamase (ESBL) resistance; Z16.19 Resistance to other specified beta lactam antibiotics; Z16.23 Resistance to quinolones and fluoroquinolones; Z16.29 Resistance to other single specified antibiotic
CPT/HCPCS: 96365; 99211; J1335

== ENCOUNTER 2025-08-10 00:24 | Day surgery (SDC) | payer OTHER ==
[2025-08-10] MEDS ORDERED: Ertapenem Sodium 1,000 MG in NS 50 ML IV SCH (01:00)
== END 2025-08-10 14:14 | disposition home or self-care (01) ==
LOC: ATC 00:24
DX: N39.0 Urinary tract infection, site not specified (principal); N31.9 Neuromuscular dysfunction of bladder, unspecified; G82.50 Quadriplegia, unspecified; Z88.1 Allergy status to other antibiotic agents; Z88.2 Allergy status to sulfonamides; Z88.8 Allergy status to other drugs, medicaments and biological substances; Z79.899 Other long term (current) drug therapy
CPT/HCPCS: 96365; J1335

== ENCOUNTER 2025-08-11 00:40 | Day surgery (SDC) | payer OTHER ==
[2025-08-11] MEDS ORDERED: Ertapenem Sodium 1,000 MG in NS 50 ML IV SCH (01:00)
[2025-08-11 11:05] VITALS: BP 102/75
== END 2025-08-11 11:22 | disposition home or self-care (01) ==
LOC: ATC 00:40
DX: N39.0 Urinary tract infection, site not specified (principal); N31.9 Neuromuscular dysfunction of bladder, unspecified; Z88.1 Allergy status to other antibiotic agents; Z88.8 Allergy status to other drugs, medicaments and biological substances; Z88.2 Allergy status to sulfonamides; Z96.0 Presence of urogenital implants
CPT/HCPCS: 96365; J1335